=== PATIENT | male | born 1945 | race African-American/Black ===

== ENCOUNTER 2016-03-15 06:51 | Emergency (ER) | payer OTHER, BC ==
[2016-03-15 07:01] VITALS: BMI 25.4
--- NOTE | 2016-03-15 07:07 | PDOC ---
History of Present Illness - General Chief Complaint: CVA/TIA Stated Complaint: H/A WITH VISION CHANGES Time Seen by Provider: 03/15/16 07:06 - History of Present Illness Initial Comments: 03/15/16 07:17 Patient seen on arrival by me documentation done later Code stroke protocol started immediately 70-year-old male with past medical history of hypertension and diabetes His only blood thinner at this time is a baby aspirin daily Patient states at 4:30 AM this morning he was his usual self and watching TV, when he had the sudden onset of a severe headache, and loss of his left visual harrison He went to the bathroom and looked in the mirror and noticed that he had a bit of a facial droop He denies any weakness in his arms or legs He denies any numbness or tingling in his arms or legs He denies any difficulty walking He states the symptoms have been stable since 4:30 AM He arrives in the emergency department approximately 7 AM was seen on arrival by me immediately He denies any chest pain or syncope Remainder the review of systems is negative Past History - Past Medical History Allergies/Adverse Reactions: Allergies Allergy/AdvReac Type Severity Reaction Status Date / Time No Known Allergies Allergy Verified 07/30/15 15:02 Home Medications: Ambulatory Orders Aspirin [Aspirin EC] 81 mg PO DAILY 06/16/14 Metformin HCl [Glucophage] 1,000 mg PO DAILY 06/16/14 Metoprolol Succinate [Toprol Xl] 50 mg PO DAILY 06/16/14 Cetirizine HCl [Zyrtec -] 10 mg PO DAILY 08/06/15 Ezetimibe [Zetia] 10 mg PO HS 08/06/15 Valsartan/Hydrochlorothiazide [Valsartan-Hctz 80-12.5 mg Tab] 1 each PO DAILY COPD: No (bronchitis) Diabetes: Yes (borderline DM) HTN: Yes - Psycho/Social/Smoking Cessation Hx Anxiety: No Suicidal Ideation: No Smoking Status: No Smoking History: Never smoked Have you smoked in the past 12 months: No Number of Cigarettes Smoked Daily: 0 Hx Alcohol Use: Yes ([id number] LAST NIGHT) Drug/Substance Use Hx: No Substance Use Type: None *Physical Exam - Vital Signs Last Vital Signs Temp Pulse Resp BP Pulse Ox 97.6 F 76 20 117/76 100 03/15/16 06:54 03/15/16 06:54 03/15/16 06:54 03/15/16 06:54 03/15/16 06:54 - Physical Exam Comments: 03/15/16 07:18 Physical exam Last Vital Signs Temp Pulse Resp BP Pulse Ox 97.6 F 76 20 117/76 100 03/15/16 06:54 03/15/16 06:54 03/15/16 06:54 03/15/16 06:54 03/15/16 06:54 GENERAL: The patient is awake, alert, and fully oriented, and in no apparent distress. HEAD: Normal with no signs of trauma. EYES: Sclera anicteric ENT: Mucous membranes moist NECK: Normal range of motion, supple LUNGS: Breath sounds equal, clear to auscultation bilaterally. No wheezes, and no crackles. HEART: Regular rate and rhythm, normal S1 and S2 without murmur, rub or gallop. ABDOMEN: Soft, nontender, normoactive bowel sounds. No guarding, no rebound. No masses appreciated. EXTREMITIES: Normal range of motion, no edema. No clubbing or cyanosis. No cords, erythema, or tenderness. NEURO: Neuro exam is significant for a left homonymous hemianopsia, and a subtle right facial droop Mental status: The patient is oriented x3. Motor: The upper extremities are 5 over 5 in all muscle groups. The lower extremities are 5 over 5 in all muscle groups. Sensation: Sensation is intact to light touch throughout in the extremities Cerebellar: Tgtywd-uzfnxh-jyoz is normal in both upper extremities. Heel-knee- curtis is normal in both lower extremities. Reflexes: 2+ and symmetric in the upper and lower extremities. Gait: Normal. Heel and toe walking are normal. Tandem gait is normal. NEUROLOGICAL: Cranial nerves II through XII grossly intact. Normal speech, normal gait. PSYCH: Normal mood, normal affect. SKIN: Warm, Dry, normal turgor, no rashes or lesions noted. NIH Stroke Scale - Last Known Well Date/Time & Onset Date Last Known Well: 03/15/16 Time Last Known Well: 04:30 - Initial Evaluation Level of consciousness: Alert Ask patient the month and their age: Answers both correctly Ask patient to open & close eyes; make fist and let go: Obeys both correctly Best gaze (horizontal eye movement): Partial gaze palsy Visual field testing: Complete hemianopia Facial paresis (Show teeth/raise eyebrows/close eyes tight): Minor paralysis ( flattened nasolabial fold, asymmetry on smiling) Motor Function: Left Arm: Normal Motor Function: Right Arm: Normal (extends arm 90 (or 45) degrees for 10 seconds without drift Motor Function: Left Leg: Normal (extends leg 30 degrees for 5 seconds without drift) Motor Function: Right Leg: Normal (extends leg 30 degrees for 5 seconds without drift) Limb Ataxia: Present in one limb Sensory(Use pinprick test arms,legs,trunk,face/side to side): Normal Best language (Describe picture, name items, read sentences): No Aphasia Dysarthria (read several words): Normal articulation Extinction and Inattention: No abnormality - Total Score NIH Stroke Scale Score: 5 Critical Care Time/MDM Note Total Critical Care Time: 45 Critical Care Statement: The care of this patient involved high complexity decision making to prevent further life threatening deterioration of the patient 's condition and/or to evalute & treat vital organ system(s) failure or risk of failure. - Medical Decision Making Note: 03/15/16 07:31 70-year-old male with hypertension diabetes, who does now state that his hypertension has been under poor control recently, and states his blood pressure has been pretty high, had the acute onset at 4:30 AM of left homonymous hemianopsia and a right facial droop associated with a severe headache He came to the ER at 6:55 AM and was seen immediately on arrival by me Stat CT scan of the head as read by me There is a right occipital hematoma, with no ventricular extension and no midline shift Neuro paged stat Call by radiologist Verbal stat report by radiologist Right occipital hematoma, extensive white matter disease, no ventricular extension of bleed, no midline shift Patient given IV labetalol stat for blood pressure control Case discussed with Dr. Mehta-interventional neurology at [facility] accepts patient in transfer STAT Will send stat team will aim for BP goal of 150 to 160 syst per [facility] 03/15/16 07:41 No Neuro callback yet (Dr. Doty's group). paged stat again 03/15/16 07:58 EKG Sinus tachycardia 102, left axis deviation -5 Normal AV and IV conduction time QTC 463 There are diffuse nonspecific ST-T wave abnormalities There is no old EKG available for comparison at this time syst BP 180 to 185 after 20 mg labetolol IV Cardene drip started, stat transport team here Discharge Disposition - Discharge Dispostion Disposition: TRANSFER ACUTE CARE/OTHER HOSP Condition at time of disposition: Stable - Patient Instructions Additional Instructions: Transfer by STAT team to [facility] on Cardene drip Accepted to [facility] Dr Fuentes - Interventional Neuro
[2016-03-15] MEDS ORDERED: SODIUM CHLORIDE 1,000 ML IV SCH (07:15)
[2016-03-15] MEDS ORDERED: LABETALOL HCL 5 MG/1 ML (100MG/20 ML VIAL) ONE (07:24)
[2016-03-15] MEDS ORDERED: LABETALOL HCL 5 MG/1 ML (100MG/20 ML VIAL) IVPUSH ONE ×2 (07:27→07:56)
[2016-03-15 07:30] LABS: BASOPHIL 0.7 % (0-2.0); EOSINOPHIL 2.3 % (0-4.5); MCH 28.5 pg (25.7-33.7); MCHC 32.5 g/dl (32.0-35.9); MEAN CELL VOLUME 87.6 fl (80-96); MEAN PLT VOLUME 8.1 fl (7.5-11.1); NEUTROPHILS 59.4 % (42.8-82.8); PLATELET COUNT 260 K/MM3 (134-434); RDW 12.7 % (11.9-15.9)
[2016-03-15 07:38] LABS: INR 0.95 (0.82-1.09); PROTHROMBIN TIME (PATIENT) 10.4 SEC (10.2-13.0)
[2016-03-15 07:51] VITALS: BP 185/106
[2016-03-15 07:59] VITALS: PULSE 89; TEMP 989.5
[2016-03-15 08:20] LABS: TROPONIN I (DFP) 0.04 ng/ml (0.03-0.50)
[2016-03-15 08:28] LABS: ALBUMIN 4.2 g/dl (3.5-5.0); BILIRUBIN,TOTAL 0.7 mg/dl (0.2-1.0); CALCIUM 9.4 mg/dl (8.4-10.2); CREATININE 1.4 mg/dl (0.6-1.3); TOT PROT 6.5 g/dl (6.4-8.3)
--- NOTE | 2016-03-15 10:54 | EKG ---
Test Reason : Blood Pressure : / mmHG Vent. Rate : 102 BPM Atrial Rate : 102 BPM P-R Int : 168 ms QRS Dur : 082 ms QT Int : 356 ms P-R-T Axes : 066 -05 072 degrees QTc Int : 463 ms SINUS TACHYCARDIA POSSIBLE LEFT ATRIAL ENLARGEMENT NONSPECIFIC T WAVE ABNORMALITY ABNORMAL ECG NO PREVIOUS ECGS AVAILABLE Confirmed by CHARLETTE CUNNINGHAM MD ([id number]) on 03/15/2016 10:54:05 AM Referred By: ESTEFANI MCCORMACK Confirmed By:CHARLETTE CUNNINGHAM MD
== END 2016-03-15 08:05 | disposition short-term general hospital (02) ==
LOC: FER 06:51
PROC: 3E033GC Introduction of Other Therapeutic Substance into Peripheral Vein, Percutaneous Approach (ICD-10-PCS; principal; 2016-03-15)
DX: R51 Headache (principal); I10 Essential (primary) hypertension; E11.9 Type 2 diabetes mellitus without complications; Z79.82 Long term (current) use of aspirin; Z79.84 Long term (current) use of oral hypoglycemic drugs
CPT/HCPCS: 36415; 70450-TC; 71010-TC; 80053; 82465; 82550; 82553; 83718; 83721; 84478; 84484; 85025; 85610; 86850; 86900; 86901; 93005; 96374; 99285-25

== ENCOUNTER 2016-10-17 10:50 | Emergency (ER) | payer OTHER, BC ==
--- NOTE | 2016-10-17 10:58 | PDOC ---
History of Present Illness - General Chief Complaint: Weakness Stated Complaint: WEAKNESS Time Seen by Provider: 10/17/16 10:55 - History of Present Illness Initial Comments: 10/17/16 12:09 Chief complaint: Low potassium History of present illness: Patient was told by his primary physician to come to the emergency room and be treated for low potassium that was discovered on routine blood work yesterday. The patient feels mild generalized weakness but no other symptoms. This has occurred multiple times in the past, thought due to diuretic therapy. He has been prescribed potassium supplementation in the past but it is not currently prescribed. Review of systems: Denies chest pain, shortness of breath, nausea, vomiting, diarrhea, abdominal pain, diaphoresis, new visual or focal neurologic symptoms. 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 He has no motor or sensory deficits in the extremities. 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 Still attends physical therapy/ rehabilitation at a local facility. High blood pressure. Gok-bpvriit-vtvadjsgj diabetes. Recurrent sinusitis. Seasonal ALLERGIES. Gout. Medications: Norvasc, Coreg, Diovan, hydrochlorothiazide, glipizide, metformin, baby aspirin, colchicine, Zyrtec, Singulair, Seroquel, vitamins. ALLERGIES: None Social history: Lives locally alone, but with nephew in an upstairs apartment. Several sisters in the area but they are not on speaking terms. . No children. Other family members in [place]. No tobacco alcohol or nonprescription drugs. Family history: Significant for diabetes, high blood pressure, but no early coronary artery disease/SC, strokes, blood clots, or cancer Physical exam: Alert and oriented 3, well-developed well-nourished, no acute distress, cheerful and cooperative Afebrile, vital signs normal PERRLA, fundi benign, ENT clear. Neck supple without bruit mass or nodes Lungs clear CV regular without murmur rub or gallop Abdomen benign Neurological left lower facial palsy, mild. Remainder of cranial nerves intact. Visual field defect to the left. Extraocular muscles intact. No focal sensory or motor deficits the extremities. Cerebellum intact. Gait stable. Impression: Presumed hypokalemia secondary to diuretic therapy. Mild weakness possibly due to potassium deficit. No new neurologic deficits. No sign of new bleed or stroke. No sign of acute cardiac event Plan: Repeat electrolytes, follow-up head CT, intravenous and oral potassium supplementation, EKG and enzymes, monitor and further treatment depending on response to therapy. Past History - Past Medical History Allergies/Adverse Reactions: Allergies Allergy/AdvReac Type Severity Reaction Status Date / Time No Known Allergies Allergy Verified 10/17/16 10:54 Home Medications: Ambulatory Orders Amlodipine Besylate [Norvasc -] 10 mg PO DAILY 10/17/16 Aspirin [Aspirin EC] 81 mg PO DAILY 10/17/16 Carvedilol 12.5 mg PO DAILY 10/17/16 Cetirizine HCl [Zyrtec -] 10 mg PO DAILY 10/17/16 Colchicine 0.6 mg PO DAILY 10/17/16 Glipizide [Glipizide ER] 2.5 mg PO DAILY 10/17/16 Hydrochlorothiazide [Hctz -] 25 mg PO DAILY 10/17/16 Levetiracetam [Keppra Xr -] 750 mg PO DAILY 10/17/16 Metformin HCl 1,000 mg PO DAILY 10/17/16 Montelukast Na [Singulair -] 10 mg PO HS 10/17/16 Potassium Chloride [K-Dur -] 20 meq PO DAILY #30 tablet.er 10/17/16 Quetiapine Fumarate [Seroquel -] 75 mg PO BID 10/17/16 Thiamine HCl [Vitamin B1] 100 mg PO DAILY 10/17/16 Valsartan [Diovan] 160 mg PO DAILY 10/17/16 Cancer: Yes (PROSTATE) COPD: No (bronchitis) Diabetes: Yes (borderline DM) HTN: Yes - Psycho/Social/Smoking Cessation Hx Anxiety: No Suicidal Ideation: No Smoking Status: No Smoking History: Never smoked Have you smoked in the past 12 months: No Number of Cigarettes Smoked Daily: 0 Hx Alcohol Use: Yes ([id number] LAST NIGHT) Drug/Substance Use Hx: No Substance Use Type: None ED Treatment Course - LABORATORY CBC & Chemistry Diagram: 10/17/16 11:20 10/17/16 11:20 Medical Decision Making - Medical Decision Making 10/17/16 12:23 Results of blood work yesterday show potassium of 2.8. Intravenous potassium supplementation begun. By mouth dose of 40 mEq given now. Monitor and recheck response to therapy. 10/17/16 12:25 EKG: Normal sinus rhythm 70/m. Normal axes and intervals. Nonspecific ST-T wave changes. No significant change compared to cardiogram dated 03/15/2016 except for decrease in heart rate from 102-70. 10/17/16 14:51 Repeat blood work shows a potassium of 3.0. Intravenous potassium was administered, as well as first dose by mouth. Patient was prescribed potassium 20 mEq daily. Follow-up with primary physician. Instructed to discuss the possibility of stopping diuretic therapy. Fully ambulatory and in no distress, no significant weakness upon discharge to follow-up as directed. *DC/Admit/Observation/Transfer Diagnosis at time of Disposition: Hypokalemia - Discharge Dispostion Disposition: HOME Condition at time of disposition: Improved Admit: No - Prescriptions Prescriptions: Potassium Chloride [K-Dur -] 20 meq PO DAILY #30 tablet.er - Patient Instructions Printed Discharge Instructions: DI for Hypokalemia, High-Potassium Diet Additional Instructions: Begin potassium supplementation as directed See your doctor in 2-3 days for recheck. Discuss an alternative to diuretic therapy, since this may be responsible for your low potassium. Return to the ER if you have any heart related symptoms such as chest pain, shortness of breath, palpitations, lightheadedness or dizziness.
[2016-10-17 11:04] VITALS: TEMP 98.1; BMI 28.5
[2016-10-17 11:51] LABS: ALK PHOS 49 U/L (32-92); ANION GAP 9 (8-16); BILIRUBIN,TOTAL 0.6 mg/dl (0.2-1.0); BLOOD UREA NITROGEN 14 mg/dl (7-18); CALCIUM 9.3 mg/dl (8.4-10.2); CHLORIDE 102 mmol/L (98-107); CO2 26 mmol/L (22-28); CREATININE 1.2 mg/dl (0.6-1.3); GLUCOSE,RANDOM 142 mg/dl (74-106); SGOT/AST 26 U/L (10-42); SGPT/ALT 30 U/L (10-40); SODIUM 137 mmol/L (136-145); TOT PROT 6.4 g/dl (6.4-8.3)
[2016-10-17] MEDS ORDERED: SODIUM CHLORIDE 1,000 ML IV SCH (12:00)
[2016-10-17] MEDS: KCL 10 MEQ IVPB 100 ML IVPB SCH ×2 (12:00→13:30)
[2016-10-17] MEDS ORDERED: POTASSIUM CHLORIDE TABS 20 MEQ TABLET.ER (FP) PO ONE ×2 (12:16→12:17)
[2016-10-17 12:55] LABS: BASO % 0.8 % (0-2.0); EOS % 2.4 % (0-4.5); HEMATOCRIT 42.8 % (35.4-49); HEMOGLOBIN 14.6 GM/dL (11.7-16.9); LYMPH % 41.2 % (8-40); MCH 28.1 pg (25.7-33.7); MEAN CELL VOLUME 82.6 fl (80-96); MONO % 13.6 % (3.8-10.2); PLATELET COUNT 260 K/MM3 (134-434); RBC 5.18 M/mm3 (4.00-5.60); RDW 14.4 % (11.9-15.9); WHITE BLOOD COUNT 5.8 K/mm3 (4.0-10.0)
[2016-10-17 13:39] LABS: TROPONIN I (DFP) 0.04 ng/ml (0.03-0.50)
[2016-10-17 15:04] VITALS: BP 129/75; PULSE 74
--- NOTE | 2016-10-18 16:27 | EKG ---
Test Reason : Blood Pressure : / mmHG Vent. Rate : 062 BPM Atrial Rate : 062 BPM P-R Int : 210 ms QRS Dur : 092 ms QT Int : 410 ms P-R-T Axes : 057 -02 029 degrees QTc Int : 416 ms SINUS RHYTHM WITH 1ST DEGREE A-V BLOCK NONSPECIFIC T WAVE ABNORMALITY ABNORMAL ECG WHEN COMPARED WITH ECG OF 17-OCT-2016 11:04, NO SIGNIFICANT CHANGE WAS FOUND Confirmed by CADEN MARTINEZ, ERIN ([id number]) on 10/18/2016 4:26:59 PM Referred By: DR NDIAYE Confirmed By:ERIN NEGRETE MD
--- NOTE | 2016-10-18 16:27 | EKG ---
Test Reason : Blood Pressure : / mmHG Vent. Rate : 070 BPM Atrial Rate : 070 BPM P-R Int : 198 ms QRS Dur : 092 ms QT Int : 392 ms P-R-T Axes : 060 -10 055 degrees QTc Int : 423 ms SINUS RHYTHM POSSIBLE LEFT ATRIAL ENLARGEMENT NONSPECIFIC T WAVE ABNORMALITY ABNORMAL ECG WHEN COMPARED WITH ECG OF 15-MAR-2016 06:55, NO SIGNIFICANT CHANGE WAS FOUND Confirmed by ERIN NEGRETE MD ([id number]) on 10/18/2016 4:27:29 PM Referred By: NAINA PETER Confirmed By:ERIN NEGRETE MD
== END 2016-10-17 15:02 | disposition home or self-care (01) ==
LOC: FER 10:50
PROC: 3E033GC Introduction of Other Therapeutic Substance into Peripheral Vein, Percutaneous Approach (ICD-10-PCS; principal; 2016-10-17)
PROC: 3E0337Z Introduction of Electrolytic and Water Balance Substance into Peripheral Vein, Percutaneous Approach (ICD-10-PCS; 2016-10-17)
DX: E87.6 Hypokalemia (principal)
CPT/HCPCS: 36415; 70450-TC; 80053; 84132; 84484; 85025; 93005; 93010; 99282-25; 99285-25; J7030

== ENCOUNTER 2016-10-30 14:04 | Emergency (ER) | payer OTHER, BC ==
[2016-10-30 14:33] VITALS: BP 134/90; PULSE 79; TEMP 98.7; BMI 28.5
--- NOTE | 2016-10-30 15:22 | PDOC ---
Attending Attestation - Resident Resident Name: Benigno Rodriguez - ED Attending Attestation I have performed the following: I have examined & evaluated the patient, The case was reviewed & discussed with the resident, I agree w/resident's findings & plan, Exceptions are as noted - HPI HPI: 10/30/16 17:54 Patient's complains of generalized weakness, lightheadedness today. Similar symptoms last week, treated multiple times in the emergency room, cardiac and neurological evaluations including serial EKGs and enzymes, head CT, negative at that time. Since then he has developed a rash on his left shoulder that suggests varicella-zoster 10/30/16 17:55 - Physicial Exam PE: 10/30/16 17:56 Physical exam unremarkable except for chronic gait instability with balance issues that have not changed - Medical Decision Making 10/30/16 17:57 Potassium today is 3.3. Remainder of labs without significant abnormalities. Upon further questioning, the patient notes that he has been prescribed medication for "shingles". This turns out to be acyclovir. He is also not eaten all day due to his multiple doctor visits. After eating here, the patient feels much better. His gait is stable. There is no lightheadedness and he is asymptomatic. Discharge fully ambulatory and in no distress to follow-up with his primary physician
[2016-10-30 15:48] LABS: MCH 28.5 pg (25.7-33.7); MCHC 33.7 g/dl (32.0-35.9); MEAN CELL VOLUME 84.5 fl (80-96); MEAN PLT VOLUME 9.1 fl (7.5-11.1); PLATELET COUNT 264 K/MM3 (134-434); RDW 14.1 % (11.9-15.9); WHITE BLOOD COUNT 6.8 K/mm3 (4.0-10.8)
[2016-10-30 15:56] LABS: ALBUMIN 4.4 g/dl (3.5-5.0); ALK PHOS 57 U/L (32-92); ANION GAP 12 (8-16); BILIRUBIN,TOTAL 0.6 mg/dl (0.2-1.0); CALCIUM 9.8 mg/dl (8.4-10.2); CO2 29 mmol/L (22-28); CREATININE 1.1 mg/dl (0.6-1.3); GLUCOSE,RANDOM 101 mg/dl (74-106); SGOT/AST 49 U/L (10-42); SGPT/ALT 69 U/L (10-40); TOT PROT 6.9 g/dl (6.4-8.3)
[2016-10-30 16:44] LABS: PLATELET ESTIMATE ADEQUATE (NORMAL); REACTIVE LYMPHOCYTES 1 % (0-80)
--- NOTE | 2016-10-30 16:59 | PDOC ---
History of Present Illness - General Chief Complaint: Lightheaded Stated Complaint: WEAKNESS Time Seen by Provider: 10/30/16 14:46 History Source: Patient Exam Limitations: No Limitations - History of Present Illness Initial Comments: 10/30/16 16:50 Patient is a 70M with history of stroke (Daniele, deficits in partial left visual field memory and balance), gout, and hypokalemia here today complaining of light -headedness. He was recently worked up in the ED which showed a potassium of 2.8. K was replaced. He then left AMA. The next day, he came back and his K was normal. Trop was negative twice this day. ECG showed a T wave flattening in III , consistent with prior ECGs. He denies chest pain, shortness of breath, belly pain, and palpitations. He states that he hasn't had anything to eat or drink today. He denies nausea, vomiting, fevers and chills. Patient was recently diagnosed with shingles and treated with acyclovir. Past History - Past Medical History Allergies/Adverse Reactions: Allergies Allergy/AdvReac Type Severity Reaction Status Date / Time No Known Allergies Allergy Verified 10/30/16 14:28 Home Medications: Ambulatory Orders Amlodipine Besylate [Norvasc -] 10 mg PO DAILY 10/17/16 Aspirin [Aspirin EC] 81 mg PO DAILY 10/17/16 Carvedilol 12.5 mg PO DAILY 10/17/16 Cetirizine HCl [Zyrtec -] 10 mg PO DAILY 10/17/16 Colchicine 0.6 mg PO DAILY 10/17/16 Glipizide [Glipizide ER] 2.5 mg PO DAILY 10/17/16 Hydrochlorothiazide [Hctz -] 25 mg PO DAILY 10/17/16 Levetiracetam [Keppra Xr -] 750 mg PO DAILY 10/17/16 Metformin HCl 1,000 mg PO DAILY 10/17/16 Montelukast Na [Singulair -] 10 mg PO HS 10/17/16 Potassium Chloride [K-Dur -] 20 meq PO DAILY #30 tablet.er 10/17/16 Quetiapine Fumarate [Seroquel -] 75 mg PO BID 10/17/16 Thiamine HCl [Vitamin B1] 100 mg PO DAILY 10/17/16 Valsartan [Diovan] 160 mg PO DAILY 10/17/16 Acyclovir 5% Ointment [Zovirax *Ointment* -] 1 applic TP TID 10/30/16 Acyclovir [Zovirax -] 400 mg PO BID 10/30/16 Docusate Sodium [Colace -] 100 mg PO BID 10/30/16 Prednisone 5 mg PO ASDIR 10/30/16 Cancer: Yes (PROSTATE) CVA: Yes COPD: No (bronchitis) Diabetes: Yes (borderline DM) HTN: Yes Psychiatric Problems: Yes (ANXIETY) - Psycho/Social/Smoking Cessation Hx Anxiety: Yes Suicidal Ideation: No Smoking Status: No Smoking History: Never smoked Have you smoked in the past 12 months: No Number of Cigarettes Smoked Daily: 0 Information on smoking cessation initiated: No Hx Alcohol Use: No Drug/Substance Use Hx: No Substance Use Type: None Review of Systems - Review of Systems Comments:: 10/30/16 18:30 GENERAL/CONSTITUTIONAL: No fever or chills. No weakness. HEAD, EYES, EARS, NOSE AND THROAT: No change in vision. No ear pain or discharge. No sore throat. CARDIOVASCULAR: No chest pain or shortness of breath RESPIRATORY: No cough, wheezing, or hemoptysis. GASTROINTESTINAL: No nausea, vomiting, diarrhea or constipation. GENITOURINARY: No dysuria, frequency, or change in urination. SKIN: No rash NEUROLOGIC: No headache, vertigo, loss of consciousness, or change in strength/ sensation. Positive for partial left sided visual loss and memory loss, unchanged from baseline. ENDOCRINE: No increased thirst. No abnormal weight change ALLERGIC/IMMUNOLOGIC: Positive for rash on left shoulder *Physical Exam - Vital Signs Last Vital Signs Temp Pulse Resp BP Pulse Ox 98.7 F 79 18 134/90 97 10/30/16 14:06 10/30/16 14:06 10/30/16 14:06 10/30/16 14:06 10/30/16 14:06 - Physical Exam Comments: 10/30/16 18:33 GENERAL: Awake, alert, and fully oriented, in no acute distress HEAD: No signs of trauma, normocephalic, atraumatic EYES: PERRLA, EOMI, sclera anicteric, conjunctiva clear ENT: Auricles normal inspection, hearing grossly normal, nares patent, oropharynx clear without exudates. NECK: Normal ROM, supple, no lymphadenopathy, JVD, or masses LUNGS: No distress, speaks full sentences, clear to auscultation bilaterally HEART: Regular rate and rhythm, normal S1 and S2, no murmurs, rubs or gallops, peripheral pulses normal and equal bilaterally. ABDOMEN: Soft, nontender, normoactive bowel sounds. No guarding, no rebound. No masses EXTREMITIES: Normal inspection, Normal range of motion, no edema. No clubbing or cyanosis. NEUROLOGICAL: Cranial nerves II through XII grossly intact. Normal speech. SKIN: Warm, Dry, normal turgor, no rashes or lesions noted. ED Treatment Course - LABORATORY CBC & Chemistry Diagram: 10/30/16 14:49 10/30/16 14:49 - ADDITIONAL ORDERS Additional order review: Laboratory Results 10/30/16 10/30/16 14:49 14:49 Sodium 141 Potassium 3.3 L Chloride 100 Carbon Dioxide 29 H Anion Gap 12 BUN 17 D Creatinine 1.1 Creat Clearance w eGFR > 60 Random Glucose 101 D Calcium 9.8 Magnesium 1.9 Total Bilirubin 0.6 AST 49 H D ALT 69 H D Alkaline Phosphatase 57 Total Protein 6.9 Albumin 4.4 10/30/16 14:49 RBC 5.57 MCV 84.5 MCHC 33.7 RDW 14.1 MPV 9.1 Neutrophils % Upper Tier Lymphocytes % Upper Tier Monocytes % Upper Tier Eosinophils % Upper Tier Basophils % Upper Tier Medical Decision Making - Medical Decision Making 10/30/16 18:35 Patient is a 70M with history of stroke, HTN, distant prostate cancer and sinusitis here today complaining of light headedness. Vital signs stable. Recently worked up. Not complaining of chest pain. K level 3.3. Advised again to stop taking HCTZ. ECG shows normal sinus rhythm, normal rate, flat T wave in III consistent with prior ECGs, no ST elevations. Overall same as prior ECG. CBC normal. CMP normal. Mg normal. Feels much better after eating. Ambulating and saying symptoms have improved. Given return precautions and expressed understanding. *DC/Admit/Observation/Transfer Diagnosis at time of Disposition: Light headedness - Discharge Dispostion Disposition: HOME Condition at time of disposition: Good Admit: No - Patient Instructions Printed Discharge Instructions: DI for Shingles Additional Instructions: Please come back if you experience any episodes of light headedness, chest pain or shortness of breath. We'll be happy to see you again
--- NOTE | 2016-10-31 08:49 | EKG ---
Test Reason : Blood Pressure : / mmHG Vent. Rate : 076 BPM Atrial Rate : 076 BPM P-R Int : 202 ms QRS Dur : 092 ms QT Int : 364 ms P-R-T Axes : 060 -03 030 degrees QTc Int : 409 ms SINUS RHYTHM WITH 1ST DEGREE A-V BLOCK NONSPECIFIC T WAVE ABNORMALITY ABNORMAL ECG WHEN COMPARED WITH ECG OF 17-OCT-2016 16:25, NO SIGNIFICANT CHANGE WAS FOUND Confirmed by ERIN NEGRETE MD ([id number]) on 10/31/2016 8:49:31 AM Referred By: MD PETER Confirmed By:ERIN NEGRETE MD
== END 2016-10-30 17:28 | disposition home or self-care (01) ==
LOC: FER 14:04
DX: R42 Dizziness and giddiness (principal); E87.6 Hypokalemia; I63.8 Other cerebral infarction; H53.8 Other visual disturbances; R47.01 Aphasia; Z85.46 Personal history of malignant neoplasm of prostate; J44.9 Chronic obstructive pulmonary disease, unspecified; I10 Essential (primary) hypertension; F41.9 Anxiety disorder, unspecified
CPT/HCPCS: 36415; 80053; 83735; 85025; 93005; 99283-25

== ENCOUNTER 2017-06-10 09:09 | Observation (INO) | payer OTHER, BC ==
[2017-06-10] MEDS ORDERED: SODIUM CHLORIDE 1,000 ML IV SCH ×2 (09:15→17:30)
--- NOTE | 2017-06-10 09:19 | PDOC ---
History of Present Illness - General Chief Complaint: CVA/TIA Stated Complaint: DIZZY,ALTERED BALANCE Time Seen by Provider: 06/10/17 09:13 Past History - Past Medical History Allergies/Adverse Reactions: Allergies Allergy/AdvReac Type Severity Reaction Status Date / Time No Known Allergies Allergy Verified 10/30/16 14:28 Home Medications: Ambulatory Orders Amlodipine Besylate [Norvasc -] 10 mg PO DAILY 10/17/16 Aspirin [Aspirin EC] 81 mg PO DAILY 10/17/16 Carvedilol 12.5 mg PO DAILY 10/17/16 Cetirizine HCl [Zyrtec -] 10 mg PO DAILY 10/17/16 Colchicine 0.6 mg PO DAILY 10/17/16 Glipizide [Glipizide ER] 2.5 mg PO DAILY 10/17/16 Hydrochlorothiazide [Hctz -] 25 mg PO DAILY 10/17/16 Levetiracetam [Keppra Xr -] 750 mg PO DAILY 10/17/16 Metformin HCl 1,000 mg PO DAILY 10/17/16 Montelukast Na [Singulair -] 10 mg PO HS 10/17/16 Potassium Chloride [K-Dur -] 20 meq PO DAILY #30 tablet.er 10/17/16 Quetiapine Fumarate [Seroquel -] 75 mg PO BID 10/17/16 Thiamine HCl [Vitamin B1] 100 mg PO DAILY 10/17/16 Valsartan [Diovan] 160 mg PO DAILY 10/17/16 Acyclovir 5% Ointment [Zovirax *Ointment* -] 1 applic TP TID 10/30/16 Acyclovir [Zovirax -] 400 mg PO BID 10/30/16 Docusate Sodium [Colace -] 100 mg PO BID 10/30/16 Prednisone 5 mg PO ASDIR 10/30/16 Cancer: Yes (PROSTATE) CVA: Yes COPD: No (bronchitis) Diabetes: Yes (borderline DM) HTN: Yes Psychiatric Problems: Yes (ANXIETY) - Suicide/Smoking/Psychosocial Hx Smoking Status: No Smoking History: Never smoked Have you smoked in the past 12 months: No Number of Cigarettes Smoked Daily: 0 Hx Alcohol Use: No Drug/Substance Use Hx: No Substance Use Type: None
--- NOTE | 2017-06-10 09:40 | PDOC ---
History of Present Illness - General Chief Complaint: Lightheaded Stated Complaint: DIZZY,ALTERED BALANCE Time Seen by Provider: 06/10/17 09:13 - History of Present Illness Initial Comments: 06/10/17 09:31 This is a 70M with history of HTN, DM, high Chol, stroke (Daniele, deficits in partial left visual field memory and balance), gout, and hypokalemia here today complaining of light-headedness. Patient had seen his ENT yesterday for a sinus infection. He has frontal sinus pressure. Today when he woke up he stood up quickly and began to feel lightheaded. When he sits down the symptoms improve. Symptoms seem to related to position they are not persistent they're intermittent no other chest pain shortness of breath nausea vomiting diarrhea weakness numbness rashes Past History - Past Medical History Allergies/Adverse Reactions: Allergies Allergy/AdvReac Type Severity Reaction Status Date / Time No Known Allergies Allergy Verified 06/10/17 10:51 Home Medications: Ambulatory Orders Amlodipine Besylate [Norvasc -] 10 mg PO DAILY 10/17/16 Cetirizine HCl [Zyrtec -] 10 mg PO DAILY 10/17/16 Colchicine 0.6 mg PO DAILY 10/17/16 Glipizide [Glipizide ER] 2.5 mg PO DAILY 10/17/16 Levetiracetam [Keppra Xr -] 750 mg PO DAILY 10/17/16 Metformin HCl 1,000 mg PO DAILY 10/17/16 Montelukast Na [Singulair -] 10 mg PO HS 10/17/16 Quetiapine Fumarate [Seroquel -] 75 mg PO BID 10/17/16 Valsartan [Diovan] 160 mg PO DAILY 10/17/16 Aspirin [ASA -] 81 mg PO DAILY 06/10/17 Ezetimibe [Zetia] 10 mg PO DAILY 06/10/17 Metoprolol Succinate [Toprol Xl] 50 mg PO DAILY 06/10/17 Potassium Chloride [K-Dur -] 10 meq PO ASDIR 06/10/17 Cancer: Yes (PROSTATE) CVA: Yes COPD: No (bronchitis) Diabetes: Yes (borderline DM) HTN: Yes Psychiatric Problems: Yes (ANXIETY) - Suicide/Smoking/Psychosocial Hx Smoking Status: No Smoking History: Never smoked Have you smoked in the past 12 months: No Number of Cigarettes Smoked Daily: 0 Hx Alcohol Use: No Drug/Substance Use Hx: No Substance Use Type: None Review of Systems - Review of Systems Comments:: 06/10/17 09:40 ROS: A complete review of 10 out of 10 review of systems is taken and is negative apart from what is previously mentioned below and in the HPI. *Physical Exam - Physical Exam Comments: 06/10/17 09:40 Vitals: Triage Vital signs reviewed General Appearance: no acute distress, well nourished well developed, Head: Atraumatic, frontal sinus ttp Eyes: Pupils equal reactive round, extraocular movement intact Ears: TM's normal bilaterally; Nose: Nares patent bilaterally;no nasal congestion Throat: Posterior oropharynx without erythema, mucous membranes moist, Neck: Supple;No Nucal rigidity Chest Wall: Nontender Cardiac: Regular rate and rhythym, no murmurs, no rubs, no gallops, Lungs: Clear to auscultation bilateral, good air movement bilaterally, Abdomen: Soft, non distended, normal bowel sounds, non tender to palpation Extremities: Full range of motion to all extremities, no cyanosis, clubbing, or edema Skin: Warm and dry, no rashes or lesions, no rash, no petechiae Neuro: AOX3; Cranial Nerves 2-12 grossly intact, Strength intact to all extremities, Sensation intact to all extremities, lightheaded with standing. Psych: normal mood, normal affect Heart Score/ECG Review - ECG Impressions Comment:: 06/10/17 18:[address] elevations no T-wave inversions ED Treatment Course - LABORATORY CBC & Chemistry Diagram: 06/10/17 09:20 06/10/17 09:20 - RADIOLOGY Radiology Studies Ordered: Category Date Time Status HEAD CT (STROKE) [CT] Stat CT Scan 06/10/17 09:14 Ordered CHEST X-RAY PORTABLE* [RAD] Stat Radiology 06/10/17 09:16 Ordered Medical Decision Making - Medical Decision Making 06/10/17 12:30 This is a 70M with history of HTN, DM, high Chol, stroke (Daniele, deficits in partial left visual field memory and balance), gout, and hypokalemia here today complaining of light-headedness. Patient had seen his ENT yesterday for a sinus infection. He has frontal sinus pressure. Today when he woke up he stood up quickly and began to feel lightheaded. When he sits down the symptoms improve. Symptoms seem to related to position they are not persistent they're intermittent no other chest pain shortness of breath nausea vomiting diarrhea weakness numbness rashes On examination no focal neurologic findings NIHSS stroke scale score 0 Positional lightheadedness we'll check labs EKG troponin head CT IV fluids observe and reassess Reevaluation despite IV fluids patient still remains slightly asymptomatic still slightly lightheaded with mild nausea when standing. Given the patient lives by himself will observe overnight with neurologic consultation. We'll treat with Zofran and meclizine and observe for further management *DC/Admit/Observation/Transfer Diagnosis at time of Disposition: Dizziness, Light headedness - Discharge Dispostion Admit: Yes - Referrals - Patient Instructions - Post Discharge Activity
[2017-06-10 10:04] LABS: ALBUMIN 4.2 g/dl (3.5-5.0); ALK PHOS 88 U/L (32-92); ANION GAP 3 (8-16); BLOOD UREA NITROGEN 15 mg/dl (7-18); CALCIUM 9.1 mg/dl (8.4-10.2); CHLORIDE 108 mmol/L (98-107); CHOLESTEROL 180 mg/dl; CO2 26 mmol/L (22-28); CREATININE 1.2 mg/dl (0.6-1.3); GLUCOSE,RANDOM 123 mg/dl (74-106); POTASSIUM 3.5 mmol/L (3.5-5.1); SGOT/AST 19 U/L (10-42); SGPT/ALT 26 U/L (10-40); SODIUM 137 mmol/L (136-145)
[2017-06-10 10:23] VITALS: BMI 29.9
[2017-06-10 10:26] LABS: BASO % 1.8 % (0-2.0); EOS % 2.2 % (0-4.5); HEMATOCRIT 48.2 % (35.4-49); HEMOGLOBIN 16.5 GM/dl (11.7-16.9); LYMPH % 36.8 % (8-40); MCH 29.5 pg (25.7-33.7); MCHC 34.3 g/dl (32.0-35.9); MEAN CELL VOLUME 85.8 fl (80-96); MEAN PLT VOLUME 8.6 fl (7.5-11.1); MONO % 11.7 % (3.8-10.2); NEUT % 47.5 % (42.8-82.8); PLATELET COUNT 289 K/MM3 (134-434); RBC 5.61 M/mm3 (4.00-5.60); RDW 13.5 % (11.9-15.9); WHITE BLOOD COUNT 7.9 K/mm3 (4.0-10.8)
[2017-06-10 11:27] LABS: BILIRUBIN,TOTAL 0.5 mg/dl (0.2-1.0)
[2017-06-10] MEDS ORDERED: MECLIZINE HCL 25 MG TABLET (FP) PO ONE (12:22)
[2017-06-10] MEDS ORDERED: ONDANSETRON 4 MG/2 ML VIAL IVPUSH ONE (12:22)
[2017-06-10] MEDS ORDERED: ONDANSETRON 4 MG/2 ML VIAL ONE (12:26)
[2017-06-10] MEDS ORDERED: MECLIZINE HCL 25 MG TABLET (FP) ONE (12:26)
[2017-06-10] MEDS ORDERED: FLUTICASONE PROP 0.05% 16 GM NASAL SPRAY NS ONE (13:26)
[2017-06-10 13:59] LABS: PH,URINE 5.5 (4.5-8); URINE APPEARANCE Clear; URINE BILIRUBIN Negative (NEGATIVE); URINE BLOOD Negative (NEGATIVE); URINE GLUCOSE (UA) Negative (NEGATIVE); URINE KETONE Negative (NEGATIVE); URINE LEUK ESTERASE Negative (NEGATIVE); URINE NITRITE Negative (NEGATIVE); URINE PROTEIN Negative (NEGATIVE); URINE UROBILINOGEN 0.2 (0.2-1.0)
[2017-06-10] MEDS ORDERED: METOCLOPRAMIDE HCL INJECTION 10 MG/2 ML VIAL IVPB ONE (14:16)
[2017-06-10 14:31] LABS: PH,URINE 5.5 (4.5-8); URINE APPEARANCE Clear; URINE BILIRUBIN Negative (NEGATIVE); URINE GLUCOSE (UA) Negative (NEGATIVE); URINE KETONE Negative (NEGATIVE); URINE LEUK ESTERASE Negative (NEGATIVE); URINE NITRITE Negative (NEGATIVE); URINE PROTEIN Negative (NEGATIVE); URINE UROBILINOGEN 0.2 (0.2-1.0)
[2017-06-10 14:44] LABS: URINE COLOR YELLOW
[2017-06-10 14:46] LABS: URINE BLOOD Trace-intact (NEGATIVE); URINE COLOR YELLOW
[2017-06-10 15:52] LABS: EPI CELLS FEW /HPF; URINE BACTERIA NONE SEEN /hpf (NEGATIVE); URINE RBC 0-3 /hpf (0-3); URINE WBC 0-3 (0-2)
--- NOTE | 2017-06-10 17:22 | HP ---
Admitting History and Physical - Primary Care Physician PCP: Billie Spain - Admission History of Present Illness: 70M with history of HTN, DM, high Chol, stroke (Mar, deficits in partial left visual field memory and balance), gout, and hypokalemia here today complaining of light-headedness and balance was off. Patient had seen his ENT yesterday for a sinus infection. He has frontal sinus pressure. Today when he woke up he stood up quickly and began to feel lightheaded. When he sits down the symptoms improve. Symptoms seem to related to position they are not persistent they're intermittent no other chest pain shortness of breath nausea vomiting diarrhea weakness numbness rashes - Past Medical History Cardiovascular: Yes: HTN, Hyperlipdemia Endocrine: Yes: Diabetes Mellitus - Smoking History Smoking history: Never smoked Have you smoked in the past 12 months: No Aproximately how many cigarettes per day: 0 - Alcohol/Substance Use Hx Alcohol Use: No Home Medications - Allergies Allergies/Adverse Reactions: Allergies Allergy/AdvReac Type Severity Reaction Status Date / Time No Known Allergies Allergy Verified 06/10/17 10:51 - Home Medications Home Medications: Ambulatory Orders Amlodipine Besylate [Norvasc -] 10 mg PO DAILY 10/17/16 Cetirizine HCl [Zyrtec -] 10 mg PO DAILY 10/17/16 Colchicine 0.6 mg PO DAILY 10/17/16 Glipizide [Glipizide ER] 2.5 mg PO DAILY 10/17/16 Levetiracetam [Keppra Xr -] 750 mg PO BID 10/17/16 Metformin HCl 1,000 mg PO DAILY 10/17/16 Montelukast Na [Singulair -] 10 mg PO HS 10/17/16 Quetiapine Fumarate [Seroquel -] 75 mg PO BID 10/17/16 Valsartan [Diovan] 160 mg PO DAILY 10/17/16 Aspirin [ASA -] 81 mg PO DAILY 06/10/17 Ezetimibe [Zetia] 10 mg PO DAILY 06/10/17 Potassium Chloride [K-Dur -] 10 meq PO ASDIR 06/10/17 Apixaban [Eliquis -] 5 mg PO BID #10 tablet 06/12/17 Metoprolol Succinate [Toprol XL -] 25 mg PO DAILY #30 tab.sr.24h 06/12/17 Physical Examination Vital Signs: Vital Signs Temperature 98.5 F 06/10/17 16:03 Pulse Rate 61 06/10/17 16:03 Respiratory Rate 19 06/10/17 16:03 Blood Pressure 130/77 06/10/17 16:03 O2 Sat by Pulse Oximetry (%) 95 06/10/17 16:03 Constitutional: Yes: No Distress HENT: Yes: Atraumatic Neck: Yes: Supple Cardiovascular: Yes: Regular Rate and Rhythm Respiratory: Yes: CTA Bilaterally Gastrointestinal: Yes: Normal Bowel Sounds Extremities: Yes: WNL Edema: No Peripheral Pulses WNL: Yes Neurological: Yes: Alert, Oriented Labs: CBC, BMP 06/10/17 09:20 06/10/17 09:20 Problem List - Problems (1) Dizziness Assessment/Plan: feeling better Code(s): R42 - DIZZINESS AND GIDDINESS (2) Light headedness Code(s): R42 - DIZZINESS AND GIDDINESS (3) Cerebrovascular accident (CVA) Assessment/Plan: h/o...mri pending Code(s): I63.9 - CEREBRAL INFARCTION, UNSPECIFIED (4) Diabetes mellitus Assessment/Plan: on meds bgms Code(s): E11.9 - TYPE 2 DIABETES MELLITUS WITHOUT COMPLICATIONS (5) Hypertension Assessment/Plan: on meds Code(s): I10 - ESSENTIAL (PRIMARY) HYPERTENSION (6) Atrial fibrillation Assessment/Plan: on cardizem cardiology to see patient Code(s): I48.91 - UNSPECIFIED ATRIAL FIBRILLATION (7) Gout Code(s): M10.9 - GOUT, UNSPECIFIED (8) Hypercholesterolemia Assessment/Plan: on meds stable Code(s): E78.00 - PURE HYPERCHOLESTEROLEMIA, UNSPECIFIED (9) Prostate cancer Code(s): C61 - MALIGNANT NEOPLASM OF PROSTATE Assessment/Plan Laboratory Tests 06/10/17 06/10/17 06/10/17 09:20 09:20 09:20 WBC 7.9 RBC 5.61 H Hgb 16.5 Hct 48.2 MCV 85.8 MCH 29.5 MCHC 34.3 RDW 13.5 Plt Count 289 MPV 8.6 Neutrophils % 47.5 D Lymphocytes % 36.8 D Monocytes % 11.7 H Eosinophils % 2.2 Basophils % 1.8 Sodium 137 Potassium 3.5 Chloride 108 H Carbon Dioxide 26 Anion Gap 3 L BUN 15 Creatinine 1.2 Creat Clearance w eGFR 59.68 Random Glucose 123 H D Calcium 9.1 Total Bilirubin 0.5 AST 19 D ALT 26 D Alkaline Phosphatase 88 D Troponin I < 0.03 Total Protein 7.0 Albumin 4.2 Cholesterol 180 Urine Color Urine Appearance Urine pH Ur Specific Shade Urine Protein Urine Glucose (UA) Urine Ketones Urine Blood Urine Nitrite Urine Bilirubin Urine Urobilinogen Ur Leukocyte Esterase Urine RBC Urine WBC Ur Epithelial Cells Urine Bacteria 06/10/17 06/10/17 09:23 12:23 WBC RBC Hgb Hct MCV MCH MCHC RDW Plt Count MPV Neutrophils % Lymphocytes % Monocytes % Eosinophils % Basophils % Sodium Potassium Chloride Carbon Dioxide Anion Gap BUN Creatinine Creat Clearance w eGFR Random Glucose Calcium Total Bilirubin AST ALT Alkaline Phosphatase Troponin I Total Protein Albumin Cholesterol Urine Color Yellow Yellow Urine Appearance Clear Clear Urine pH 5.5 5.5 Ur Specific Shade 1.015 1.020 Urine Protein Negative Negative Urine Glucose (UA) Negative Negative Urine Ketones Negative Negative Urine Blood Negative Trace-intact H Urine Nitrite Negative Negative Urine Bilirubin Negative Negative Urine Urobilinogen 0.2 0.2 Ur Leukocyte Esterase Negative Negative Urine RBC 0-3 Urine WBC 0-3 Ur Epithelial Cells Few Urine Bacteria None seen Active Medications Generic Name Dose Route Start Last Admin Trade Name Dick PRN Reason Stop Dose Admin Sodium Chloride 1,000 mls @ 42 mls/hr 06/10/17 09:15 06/10/17 09:30 Normal Saline - IV 42 mls/hr ASDIR LEON Administration Active Medications Generic Name Dose Route Start Last Admin Trade Name Dick PRN Reason Stop Dose Admin Amlodipine Besylate 10 mg 06/11/17 10:00 Norvasc - PO DAILY LEON Aspirin 81 mg 06/11/17 10:00 Asa - PO DAILY LEON Colchicine 0.6 mg 06/11/17 10:00 Colcrys - PO DAILY LEON Ezetimibe 10 mg 06/11/17 10:00 Zetia - PO DAILY LEON Glipizide 2.5 mg 06/11/17 07:00 Glucotrol Xl - PO ACBK LEON Sodium Chloride 1,000 mls @ 75 mls/hr 06/10/17 17:30 06/10/17 19:18 Normal Saline - IV 75 mls/hr ASDIR LEON Administration Levetiracetam 750 mg 06/11/17 10:00 Keppra Xr - PO DAILY LEON Metformin HCl 1,000 mg 06/11/17 07:00 Glucophage - PO ACBK LEON Montelukast Sodium 10 mg 06/10/17 22:00 Singulair - PO HS LEON
--- NOTE | 2017-06-10 18:35 | CON.NEURO ---
Consult - History of Present Illness History of Present Illness: 70M with history of HTN, DM, high Chol, stroke (Mar, deficits in partial left visual field memory and balance), gout, and hypokalemia here today complaining of light-headedness, NV. Patient had seen his ENT yesterday for a sinus infection. He has frontal sinus pressure. Today when he woke up he stood up quickly and began to feel lightheaded. When he sits down the symptoms improve. Symptoms seem to related to position they are not persistent they're intermittent no other chest pain shortness of breath nausea vomiting diarrhea weakness numbness rashes. Denies any focal weakness. HX of ETH years ago, on ASA. HD CT : old [employer] infarct - Past Medical History Cardio/Vascular: Yes: HTN, Hyperlipdemia Endocrine: Yes: Diabetes Mellitus - Alcohol/Substance Use Hx Alcohol Use: No - Smoking History Smoking history: Never smoked Have you smoked in the past 12 months: No Aproximately how many cigarettes per day: 0 Home Medications - Allergies Allergies/Adverse Reactions: Allergies Allergy/AdvReac Type Severity Reaction Status Date / Time No Known Allergies Allergy Verified 06/10/17 10:51 - Home Medications Home Medications: Ambulatory Orders Amlodipine Besylate [Norvasc -] 10 mg PO DAILY 10/17/16 Cetirizine HCl [Zyrtec -] 10 mg PO DAILY 10/17/16 Colchicine 0.6 mg PO DAILY 10/17/16 Glipizide [Glipizide ER] 2.5 mg PO DAILY 10/17/16 Levetiracetam [Keppra Xr -] 750 mg PO DAILY 10/17/16 Metformin HCl 1,000 mg PO DAILY 10/17/16 Montelukast Na [Singulair -] 10 mg PO HS 10/17/16 Quetiapine Fumarate [Seroquel -] 75 mg PO BID 10/17/16 Valsartan [Diovan] 160 mg PO DAILY 10/17/16 Aspirin [ASA -] 81 mg PO DAILY 06/10/17 Ezetimibe [Zetia] 10 mg PO DAILY 06/10/17 Metoprolol Succinate [Toprol Xl] 50 mg PO DAILY 06/10/17 Potassium Chloride [K-Dur -] 10 meq PO ASDIR 06/10/17 Physical Exam-Neuro Vital Signs: Vital Signs Temperature 98.5 F 06/10/17 17:22 Pulse Rate 61 06/10/17 17:22 Respiratory Rate 19 06/10/17 17:22 Blood Pressure 132/74 06/10/17 17:22 O2 Sat by Pulse Oximetry (%) 95 06/10/17 17:22 Constitutional: Yes: Well Nourished Neck: Yes: WNL Labs: CBC, BMP 06/10/17 09:20 06/10/17 09:20 - Neuro Exam Level Of Consciousness: Yes: Alert (Awake, EOMI, left field cut, motor: mild L drift, no ataxia, reflxes reduced) NIH Stroke Scale - Last Known Well Date/Time & Onset Date Last Known Well: 06/10/17 Time Last Known Well: 09:00 - Initial Evaluation Level of consciousness: Alert Ask patient the month and their age: Answers both correctly Ask patient to open & close eyes; make fist and let go: Obeys both correctly Best gaze (horizontal eye movement): Normal Visual field testing: Partial hemianopia Facial paresis (Show teeth/raise eyebrows/close eyes tight): Normal symmetrical movement Motor Function: Left Arm: Drift Motor Function: Right Arm: Normal (extends arm 90 (or 45) degrees for 10 seconds without drift Motor Function: Left Leg: Normal (extends leg 30 degrees for 5 seconds without drift) Motor Function: Right Leg: Normal (extends leg 30 degrees for 5 seconds without drift) Limb Ataxia: No ataxia Sensory(Use pinprick test arms,legs,trunk,face/side to side): Normal Best language (Describe picture, name items, read sentences): No Aphasia Dysarthria (read several words): Normal articulation Extinction and Inattention: No abnormality - Total Score NIH Stroke Scale Score: 2 Imaging - Results Cat Scan: Report Reviewed, Image Reviewed Problem List - Problems (1) Cerebrovascular accident (CVA) Code(s): I63.9 - CEREBRAL INFARCTION, UNSPECIFIED (2) Diabetes mellitus Code(s): E11.9 - TYPE 2 DIABETES MELLITUS WITHOUT COMPLICATIONS (3) Vertigo Code(s): R42 - DIZZINESS AND GIDDINESS Assessment/Plan 1M with history of HTN, DM, high Chol, stroke (Mar, deficits in partial left visual field memory and balance), gout, and hypokalemia here today complaining of light-headedness, NV and imbalance HD CT : old [employer] infarct residual left field cut and drift r/o new stroke vs sinus/viral event check MRI BRAIN, doppler cont ASA for now a1c, tsh, b12 rehab Dr Anaya
[2017-06-10] MEDS ORDERED: dilTIAZem HCL 50 MG/10 ML - 10 ML VIAL ONE (20:22)
[2017-06-10] MEDS ORDERED: HEPARIN NA (PORCINE) 5,000 UNITS/ML 1ML VIAL IVPUSH PRN ×2 (20:29)
[2017-06-10] MEDS ORDERED: dilTIAZem HCL 25 MG/5 ML - 5 ML VIAL IVPUSH ONE (20:30)
[2017-06-10] MEDS ORDERED: HEPARIN INFUSION - 25,000 UNITS/500 ML INFUS.BAG IVPB SCH (20:30)
[2017-06-10 20:56] LABS: ACTIVATED PTT 20.2 SECONDS (24.0-38.9)
[2017-06-10 21:00] LABS: INR 1.07 (0.82-1.09)
[2017-06-10] MEDS: INSULIN SLIDING SCALE (NOVOLOG) 1 VIAL SQ SCH (21:14)
[2017-06-10] MEDS: MONTELUKAST NA 10 MG TABLET PO SCH (22:34)
[2017-06-10] MEDS: levETIRAcetam XR 750 MG TAB PO SCH (22:34)
[2017-06-11] MEDS: metFORMIN HCL 500 MG TABLET (FP) PO SCH (06:28)
[2017-06-11] MEDS: glipiZIDE-XL 2.5 MG TAB.ER.24 PO SCH (06:30)
[2017-06-11] MEDS: INSULIN SLIDING SCALE (NOVOLOG) 1 VIAL SQ SCH ×4 (06:30→21:47)
[2017-06-11 09:22] LABS: BASO % 0.9 % (0-2.0); EOS % 1.2 % (0-4.5); HEMATOCRIT 48.2 % (35.4-49); HEMOGLOBIN 16.4 GM/dl (11.7-16.9); LYMPH % 26.6 % (8-40); MEAN CELL VOLUME 85.3 fl (80-96); MEAN PLT VOLUME 8.6 fl (7.5-11.1); MONO % 10.5 % (3.8-10.2); NEUT % 60.8 % (42.8-82.8); PLATELET COUNT 275 K/MM3 (134-434); RBC 5.65 M/mm3 (4.00-5.60); RDW 13.6 % (11.9-15.9); WHITE BLOOD COUNT 9.2 K/mm3 (4.0-10.8)
--- NOTE | 2017-06-11 09:23 | CON.CARD ---
Consult Consult Specialty:: Cardiology Referred by:: Dr. Spain Reason for Consultation:: Cardiac evaluation - History of Present Illness Chief Complaint: Rapid ventricular response. Unsteady gait. 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 He has had sinus infection for which he was seen by ENT. His symptom was aggravated by movement and position. He also was found to have atrial fibrillation with RVR. He was started on Heparin drip and was given Cardizem IVP. Sinus rhythm has been restored. He denies chest pain, shortness of breath or palpitations. He denies paroxysmal nocturnal dyspnea or orthopnea. He denies fever or chills. He denies nausea, vomiting, diarrhea or abdominal pain. He denies prior episode of AF but has had intermittent palpitations. Denies any synope history. Of note he also has history of prostate CA post prostatectomy. - History Source History Provided By: Patient, Medical Record Limitations to Obtaining History: No Limitations - Past Medical History Cardio/Vascular: Yes: AFIB, HTN, Hyperlipdemia Rheumatology: Yes: Gout Endocrine: Yes: Diabetes Mellitus - Past Surgical History Past Surgical History: Yes: Prostatectomy - Alcohol/Substance Use Hx Alcohol Use: No - Smoking History Smoking history: Never smoked Have you smoked in the past 12 months: No Aproximately how many cigarettes per day: 0 Home Medications - Allergies Allergies/Adverse Reactions: Allergies Allergy/AdvReac Type Severity Reaction Status Date / Time No Known Allergies Allergy Verified 06/10/17 10:51 - Home Medications Home Medications: Ambulatory Orders Amlodipine Besylate [Norvasc -] 10 mg PO DAILY 10/17/16 Cetirizine HCl [Zyrtec -] 10 mg PO DAILY 10/17/16 Colchicine 0.6 mg PO DAILY 10/17/16 Glipizide [Glipizide ER] 2.5 mg PO DAILY 10/17/16 Levetiracetam [Keppra Xr -] 750 mg PO BID 10/17/16 Metformin HCl 1,000 mg PO DAILY 10/17/16 Montelukast Na [Singulair -] 10 mg PO HS 10/17/16 Quetiapine Fumarate [Seroquel -] 75 mg PO BID 10/17/16 Valsartan [Diovan] 160 mg PO DAILY 10/17/16 Aspirin [ASA -] 81 mg PO DAILY 06/10/17 Ezetimibe [Zetia] 10 mg PO DAILY 06/10/17 Metoprolol Succinate [Toprol Xl] 50 mg PO DAILY 06/10/17 Potassium Chloride [K-Dur -] 10 meq PO ASDIR 06/10/17 Review of Systems - Review of Systems Constitutional: denies: Chills, Fever Cardiovascular: reports: Palpitations. denies: Chest Pain, Shortness of Breath Respiratory: denies: Cough, Hemoptysis, Orthopnea, PND, SOB, SOB on Exertion Gastrointestinal: denies: Abdominal Pain, Constipation, Diarrhea, Melena, Nausea , Rectal Bleeding, Vomiting Neurological: reports: Dizziness, Unsteady Gait, Weakness. denies: Change in Speech, Headache, Numbness, Seizure, Syncope Vital Signs: Vital Signs Temperature 98.6 F 06/11/17 06:00 Pulse Rate 65 06/11/17 06:00 Respiratory Rate 06/11/17 08:46 Blood Pressure 118/56 06/11/17 06:00 O2 Sat by Pulse Oximetry (%) 96 06/11/17 08:46 Eyes: Yes: PERRL HENT: Yes: Atraumatic Neck: Yes: Supple Respiratory: Yes: CTA Bilaterally Gastrointestinal: Yes: Normal Bowel Sounds, Soft. No: Tenderness Cardiovascular: Yes: Regular Rate and Rhythm JVD: No Carotid Bruit: No PMI: Non-Displaced Heart Sounds: Yes: S1, S2. No: Gallop Edema: No - Other Data Labs, Other Data: INR, PTT INR 1.07 (0.82-1.09) 06/10/17 20:30 Troponin, BNP 06/10/17 06/10/17 06/11/17 09:20 18:37 02:15 Troponin I < 0.03 < 0.03 0.02 Laboratory Results - last 24 hr 06/10/17 06/10/17 06/10/17 09:20 09:20 09:20 WBC 7.9 Corrected WBC (auto) RBC 5.61 H Hgb 16.5 Hct 48.2 MCV 85.8 MCH 29.5 MCHC 34.3 RDW 13.5 Plt Count 289 MPV 8.6 Add Manual Diff Neutrophils % 47.5 D Lymphocytes % 36.8 D Monocytes % 11.7 H Eosinophils % 2.2 Basophils % 1.8 Manual Slide Review Platelet Comment Normal RBC Morphology PT with INR INR PTT (Actin FS) Sodium 137 Potassium 3.5 Chloride 108 H Carbon Dioxide 26 Anion Gap 3 L BUN 15 Creatinine 1.2 Creat Clearance w eGFR 59.68 POC Glucometer Random Glucose 123 H D Calcium 9.1 Total Bilirubin 0.5 AST 19 D ALT 26 D Alkaline Phosphatase 88 D Creatine Kinase Troponin I < 0.03 Total Protein 7.0 Albumin 4.2 Cholesterol 180 Urine Color Urine Appearance Urine pH Ur Specific Hamilton Urine Protein Urine Glucose (UA) Urine Ketones Urine Blood Urine Nitrite Urine Bilirubin Urine Urobilinogen Ur Leukocyte Esterase Urine RBC Urine WBC Ur Epithelial Cells Urine Bacteria 06/10/17 06/10/17 06/10/17 09:23 12:23 18:37 WBC Corrected WBC (auto) RBC Hgb Hct MCV MCH MCHC RDW Plt Count MPV Add Manual Diff Neutrophils % Lymphocytes % Monocytes % Eosinophils % Basophils % Manual Slide Review Platelet Comment Normal RBC Morphology PT with INR INR PTT (Actin FS) Sodium Potassium Chloride Carbon Dioxide Anion Gap BUN Creatinine Creat Clearance w eGFR POC Glucometer Random Glucose Calcium Total Bilirubin AST ALT Alkaline Phosphatase Creatine Kinase Troponin I < 0.03 Total Protein Albumin Cholesterol Urine Color Yellow Yellow Urine Appearance Clear Clear Urine pH 5.5 5.5 Ur Specific [place] 1.015 1.020 Urine Protein Negative Negative Urine Glucose (UA) Negative Negative Urine Ketones Negative Negative Urine Blood Negative Trace-intact H Urine Nitrite Negative Negative Urine Bilirubin Negative Negative Urine Urobilinogen 0.2 0.2 Ur Leukocyte Esterase Negative Negative Urine RBC 0-3 Urine WBC 0-3 Ur Epithelial Cells Few Urine Bacteria None seen 06/10/17 06/10/17 06/10/17 18:37 20:30 20:30 WBC Cancelled Corrected WBC (auto) Cancelled RBC Cancelled Hgb Cancelled Hct Cancelled MCV Cancelled MCH Cancelled MCHC Cancelled RDW Cancelled Plt Count Cancelled MPV Cancelled Add Manual Diff Cancelled Neutrophils % Lymphocytes % Monocytes % Eosinophils % Basophils % Manual Slide Review Cancelled Platelet Comment Cancelled Normal RBC Morphology Cancelled PT with INR 12.0 INR 1.07 PTT (Actin FS) 20.2 L Sodium Potassium Chloride Carbon Dioxide Anion Gap BUN Creatinine Creat Clearance w eGFR POC Glucometer Random Glucose Calcium Total Bilirubin AST ALT Alkaline Phosphatase Creatine Kinase 103 Troponin I Total Protein Albumin Cholesterol Urine Color Urine Appearance Urine pH Ur Specific [place] Urine Protein Urine Glucose (UA) Urine Ketones Urine Blood Urine Nitrite Urine Bilirubin Urine Urobilinogen Ur Leukocyte Esterase Urine RBC Urine WBC Ur Epithelial Cells Urine Bacteria 06/10/17 06/11/17 06/11/17 20:57 02:15 02:15 WBC Corrected WBC (auto) RBC Hgb Hct MCV MCH MCHC RDW Plt Count MPV Add Manual Diff Neutrophils % Lymphocytes % Monocytes % Eosinophils % Basophils % Manual Slide Review Platelet Comment Normal RBC Morphology PT with INR INR PTT (Actin FS) 71.7 H Sodium Potassium Chloride Carbon Dioxide Anion Gap BUN Creatinine Creat Clearance w eGFR POC Glucometer 124 Random Glucose Calcium Total Bilirubin AST ALT Alkaline Phosphatase Creatine Kinase Troponin I 0.02 Total Protein Albumin Cholesterol Urine Color Urine Appearance Urine pH Ur Specific Hamilton Urine Protein Urine Glucose (UA) Urine Ketones Urine Blood Urine Nitrite Urine Bilirubin Urine Urobilinogen Ur Leukocyte Esterase Urine RBC Urine WBC Ur Epithelial Cells Urine Bacteria 06/11/17 06/11/17 06/11/17 06:28 07:20 07:20 WBC 9.2 Corrected WBC (auto) RBC 5.65 H Hgb 16.4 Hct 48.2 MCV 85.3 MCH 29.0 MCHC 34.0 RDW 13.6 Plt Count 275 MPV 8.6 Add Manual Diff Neutrophils % 60.8 D Lymphocytes % 26.6 D Monocytes % 10.5 H Eosinophils % 1.2 Basophils % 0.9 Manual Slide Review Platelet Comment Normal RBC Morphology PT with INR INR PTT (Actin FS) 52.2 H D Sodium Potassium Chloride Carbon Dioxide Anion Gap BUN Creatinine Creat Clearance w eGFR POC Glucometer 127 Random Glucose Calcium Total Bilirubin AST ALT Alkaline Phosphatase Creatine Kinase Troponin I Total Protein Albumin Cholesterol Urine Color Urine Appearance Urine pH Ur Specific [place] Urine Protein Urine Glucose (UA) Urine Ketones Urine Blood Urine Nitrite Urine Bilirubin Urine Urobilinogen Ur Leukocyte Esterase Urine RBC Urine WBC Ur Epithelial Cells Urine Bacteria Atrial fibrillation with RVR, nonspecific T wave abnormality Repeat ECG sinus rhythm with nonspecific T wave abnormality Echo: Pending Imaging - Results Chest X-ray: Report Reviewed Cat Scan: Report Reviewed (Head CT chronic occipital infarct) EKG: Report Reviewed Problem List - Problems (1) Atrial fibrillation Code(s): I48.91 - UNSPECIFIED ATRIAL FIBRILLATION (2) Hypercholesterolemia Code(s): E78.00 - PURE HYPERCHOLESTEROLEMIA, UNSPECIFIED (3) Gout Code(s): M10.9 - GOUT, UNSPECIFIED (4) Prostate cancer Code(s): C61 - MALIGNANT NEOPLASM OF PROSTATE (5) Cerebrovascular accident (CVA) Code(s): I63.9 - CEREBRAL INFARCTION, UNSPECIFIED (6) Diabetes mellitus Code(s): E11.9 - TYPE 2 DIABETES MELLITUS WITHOUT COMPLICATIONS (7) Hypertension Code(s): I10 - ESSENTIAL (PRIMARY) HYPERTENSION Assessment/Plan 1. New onset atrial fibrillation with RVR - paroxysmal - conversion to sinus rhythm [id number] score at least 5-6 2. Hypertension 3. Hypercholesterolemia 4. Type 2 diabetes mellitus 5. CVA with visual deficit 6. History of gout 7. Prostate CA s/p prostatectomy PLAN: 1. Start NOAC - Eliquis 5 mg BID and stop Heparin drip 2. Add low dose beta anthony - Metoprolol ER 25 mg once a day 3. Instead of Norvasc, consider ACEI or ARB unless contraindicated 4. Consider statin therapy in addition to Zetia. Check fasting lipid panel 5. Transthoracic echocardiography to assess LV/RV and valvular function 6. Continue with neurology evaluation 7. Further cardiac work up including nuclear myocardial perfusion imaging can be done as outpatient. Further plans are to follow Blane Boucher MD
[2017-06-11 09:54] LABS: ALBUMIN 3.7 g/dl (3.4-5.0); ANION GAP 8 (8-16); BLOOD UREA NITROGEN 12 mg/dL (7-18); CHLORIDE 108 mmol/L (98-107); CO2 28 mmol/L (21-32); GLUCOSE,RANDOM 118 mg/dL (74-106); POTASSIUM 3.9 mmol/L (3.5-5.1); SODIUM 144 mmol/L (136-145)
[2017-06-11] MEDS: APIXABAN 5 MG TABLET PO SCH ×2 (10:00→21:40)
[2017-06-11] MEDS: VALSARTAN 80 MG TABLET (UD) PO SCH (10:00)
[2017-06-11] MEDS ORDERED: amLODIPine BESYLATE 10 MG TABLET (FP) PO SCH (10:00)
[2017-06-11] MEDS: metoPROLOL SUCCINATE 25 MG TAB.SR.24H (FP) PO SCH (10:00)
[2017-06-11] MEDS ORDERED: levETIRAcetam XR 750 MG TAB PO SCH (10:00)
[2017-06-11] MEDS: amLODIPine BESYLATE 5 MG TABLET (FP) PO SCH (10:00)
[2017-06-11] MEDS: ASPIRIN 81 MG CHEWABLE TABLETS PO SCH (10:01)
[2017-06-11] MEDS: EZETIMIBE 10 MG TABLET (FP) PO SCH (10:01)
[2017-06-11] MEDS: COLCHICINE 0.6 MG TABLET (FP) PO SCH (10:01)
[2017-06-11] MEDS: levETIRAcetam XR 750 MG TAB PO SCH ×2 (10:02→21:40)
[2017-06-11 10:06] LABS: ALK PHOS 99 U/L (45-117); BILIRUBIN,TOTAL 0.4 mg/dL (0.2-1.0); CREATININE 1.1 mg/dL (0.7-1.3); SGOT/AST 10 U/L (15-37); SGPT/ALT 26 U/L (12-78); TOT PROT 6.6 g/dl (6.4-8.2)
--- NOTE | 2017-06-11 10:15 | PN ---
Progress Note (short form) - Note Progress Note: 70M with history of HTN, DM, high Chol, stroke (Mar, deficits in partial left visual field memory and balance), gout, and hypokalemia here today complaining of light-headedness, NV. Patient had seen his ENT yesterday for a sinus infection. He has frontal sinus pressure. Today when he woke up he stood up quickly and began to feel lightheaded. When he sits down the symptoms improve. Symptoms seem to related to position they are not persistent they're intermittent no other chest pain shortness of breath nausea vomiting diarrhea weakness numbness rashes. Denies any focal weakness. HX of ETH years ago, on ASA. HD CT : old [employer] infarct FU: awaiting MRI NV yesterday but feeling better now - Past Medical History Cardio/Vascular: Yes: HTN, Hyperlipdemia Endocrine: Yes: Diabetes Mellitus - Alcohol/Substance Use Hx Alcohol Use: No - Smoking History Smoking history: Never smoked Have you smoked in the past 12 months: No Aproximately how many cigarettes per day: 0 Home Medications - Allergies Allergies/Adverse Reactions: Allergies Allergy/AdvReac Type Severity Reaction Status Date / Time No Known Allergies Allergy Verified 06/10/17 10:51 - Home Medications Home Medications: Ambulatory Orders Amlodipine Besylate [Norvasc -] 10 mg PO DAILY 10/17/16 Cetirizine HCl [Zyrtec -] 10 mg PO DAILY 10/17/16 Colchicine 0.6 mg PO DAILY 10/17/16 Glipizide [Glipizide ER] 2.5 mg PO DAILY 10/17/16 Levetiracetam [Keppra Xr -] 750 mg PO DAILY 10/17/16 Metformin HCl 1,000 mg PO DAILY 10/17/16 Montelukast Na [Singulair -] 10 mg PO HS 10/17/16 Quetiapine Fumarate [Seroquel -] 75 mg PO BID 10/17/16 Valsartan [Diovan] 160 mg PO DAILY 10/17/16 Aspirin [ASA -] 81 mg PO DAILY 06/10/17 Ezetimibe [Zetia] 10 mg PO DAILY 06/10/17 Metoprolol Succinate [Toprol Xl] 50 mg PO DAILY 06/10/17 Potassium Chloride [K-Dur -] 10 meq PO ASDIR 06/10/17 Physical Exam-Neuro Vital Signs: Vital Signs Temperature 98.6 F 06/11/17 06:00 Pulse Rate 65 06/11/17 06:00 Respiratory Rate 18 06/11/17 08:46 Blood Pressure 118/56 06/11/17 06:00 O2 Sat by Pulse Oximetry (%) 96 06/11/17 08:46 Constitutional: Yes: Well Nourished Neck: Yes: WNL Labs: CBCD WBC 9.2 K/mm3 (4.0-10.8) 06/11/17 07:20 RBC 5.65 M/mm3 (4.00-5.60) H 06/11/17 07:20 Hgb 16.4 GM/dl (11.7-16.9) 06/11/17 07:20 Hct 48.2 % (35.4-49) 06/11/17 07:20 MCV 85.3 fl (80-96) 06/11/17 07:20 MCHC 34.0 g/dl (32.0-35.9) 06/11/17 07:20 RDW 13.6 % (11.9-15.9) 06/11/17 07:20 Plt Count 275 K/MM3 (134-434) 06/11/17 07:20 MPV 8.6 fl (7.5-11.1) 06/11/17 07:20 CMP Sodium 144 mmol/L (136-145) 06/11/17 07:20 Potassium 3.9 mmol/L (3.5-5.1) 06/11/17 07:20 Chloride 108 mmol/L (98-107) H 06/11/17 07:20 Carbon Dioxide 28 mmol/L (21-32) 06/11/17 07:20 Anion Gap 8 (8-16) 06/11/17 07:20 BUN 12 mg/dL (7-18) 06/11/17 07:20 Creatinine 1.1 mg/dL (0.7-1.3) 06/11/17 07:20 Creat Clearance w eGFR > 60 (>60) 06/11/17 07:20 Calcium 9.0 mg/dL (8.5-10.1) 06/11/17 07:20 Total Bilirubin 0.4 mg/dL (0.2-1.0) 06/11/17 07:20 AST 10 U/L (15-37) L 06/11/17 07:20 ALT 26 U/L (12-78) 06/11/17 07:20 Alkaline Phosphatase 99 U/L (45-117) 06/11/17 07:20 Total Protein 6.6 g/dl (6.4-8.2) 06/11/17 07:20 Albumin 3.7 g/dl (3.4-5.0) 06/11/17 07:20 - Neuro Exam Level Of Consciousness: Yes: Alert (Awake, EOMI, left field cut, motor: mild L drift, no ataxia, reflxes reduced) NIH Stroke Scale - Last Known Well Date/Time & Onset Date Last Known Well: 06/10/17 Time Last Known Well: 09:00 - Initial Evaluation Level of consciousness: Alert Ask patient the month and their age: Answers both correctly Ask patient to open & close eyes; make fist and let go: Obeys both correctly Best gaze (horizontal eye movement): Normal Visual field testing: Partial hemianopia Facial paresis (Show teeth/raise eyebrows/close eyes tight): Normal symmetrical movement Motor Function: Left Arm: Drift Motor Function: Right Arm: Normal (extends arm 90 (or 45) degrees for 10 seconds without drift Motor Function: Left Leg: Normal (extends leg 30 degrees for 5 seconds without drift) Motor Function: Right Leg: Normal (extends leg 30 degrees for 5 seconds without drift) Limb Ataxia: No ataxia Sensory(Use pinprick test arms,legs,trunk,face/side to side): Normal Best language (Describe picture, name items, read sentences): No Aphasia Dysarthria (read several words): Normal articulation Extinction and Inattention: No abnormality - Total Score NIH Stroke Scale Score: 2 Imaging - Results Cat Scan: Report Reviewed, Image Reviewed Problem List - Problems (1) Cerebrovascular accident (CVA) Code(s): I63.9 - CEREBRAL INFARCTION, UNSPECIFIED (2) Diabetes mellitus Code(s): E11.9 - TYPE 2 DIABETES MELLITUS WITHOUT COMPLICATIONS (3) Vertigo Code(s): R42 - DIZZINESS AND GIDDINESS Assessment/Plan 1M with history of HTN, DM, high Chol, stroke (Mar, deficits in partial left visual field memory and balance), gout, and hypokalemia here today complaining of light-headedness, NV and imbalance HD CT : old [employer] infarct residual left field cut and drift r/o new stroke vs sinus/viral event awaiting MRI BRAIN, doppler cont ASA for now a1c, tsh, b12 rehab --PT to ambulate Dr Anaya Problem List - Problems (1) Cerebrovascular accident (CVA) Code(s): I63.9 - CEREBRAL INFARCTION, UNSPECIFIED (2) Diabetes mellitus Code(s): E11.9 - TYPE 2 DIABETES MELLITUS WITHOUT COMPLICATIONS (3) Vertigo Code(s): R42 - DIZZINESS AND GIDDINESS
--- NOTE | 2017-06-11 10:55 | EKG ---
Test Reason : Blood Pressure : / mmHG Vent. Rate : 132 BPM Atrial Rate : 113 BPM P-R Int : 000 ms QRS Dur : 088 ms QT Int : 308 ms P-R-T Axes : 000 -06 101 degrees QTc Int : 456 ms ATRIAL FIBRILLATION WITH RAPID VENTRICULAR RESPONSE MINIMAL VOLTAGE CRITERIA FOR LVH, MAY BE NORMAL VARIANT NONSPECIFIC T WAVE ABNORMALITY ABNORMAL ECG WHEN COMPARED WITH ECG OF 30-OCT-2016 16:32, ATRIAL FIBRILLATION HAS REPLACED SINUS RHYTHM VENT. RATE HAS INCREASED BY 56 BPM Confirmed by MARCI HOYOS MD ([id number]) on 06/11/2017 10:54:48 AM Referred By: MARCELLE TABOR Confirmed By:MARCI HOYOS MD
--- NOTE | 2017-06-11 12:27 | PN ---
Progress Note, Physician History of Present Illness: feeling good - Current Medication List Current Medications: Active Medications Amlodipine Besylate (Norvasc -) 5 mg PO DAILY PENDING SALE TO [facility] Last Admin: 06/11/17 10:00 Dose: 5 mg Apixaban (Eliquis -) 5 mg PO BID PENDING SALE TO [facility] Last Admin: 06/11/17 10:00 Dose: 5 mg Aspirin (Asa -) 81 mg PO DAILY PENDING SALE TO [facility] Last Admin: 06/11/17 10:01 Dose: 81 mg Colchicine (Colcrys -) 0.6 mg PO DAILY PENDING SALE TO [facility] Last Admin: 06/11/17 10:01 Dose: 0.6 mg Ezetimibe (Zetia -) 10 mg PO DAILY PENDING SALE TO [facility] Last Admin: 06/11/17 10:01 Dose: 10 mg Glipizide (Glucotrol Xl -) 2.5 mg PO ACBK PENDING SALE TO [facility] Last Admin: 06/11/17 06:30 Dose: 2.5 mg Insulin Aspart (Novolog Vial Sliding Scale -) 1 vial SQ [facility] PENDING SALE TO [facility] PRN Reason: Protocol Last Admin: 06/11/17 06:30 Dose: Not Given Levetiracetam (Keppra Xr -) 750 mg PO BID PENDING SALE TO [facility] Last Admin: 06/11/17 10:02 Dose: 750 mg Metformin HCl (Glucophage -) 1,000 mg PO BK PENDING SALE TO [facility] Last Admin: 06/11/17 06:28 Dose: 1,000 mg Metoprolol Succinate (Toprol Xl -) 25 mg PO DAILY PENDING SALE TO [facility] Last Admin: 06/11/17 10:00 Dose: 25 mg Montelukast Sodium (Singulair -) 10 mg PO HS PENDING SALE TO [facility] Last Admin: 06/10/17 22:34 Dose: 10 mg Valsartan (Diovan -) 80 mg PO DAILY PENDING SALE TO [facility] Last Admin: 06/11/17 10:00 Dose: 80 mg - Objective Vital Signs: Vital Signs Temperature 98.6 F 06/11/17 06:00 Pulse Rate 65 06/11/17 06:00 Respiratory Rate 18 06/11/17 08:46 Blood Pressure 118/56 06/11/17 06:00 O2 Sat by Pulse Oximetry (%) 96 06/11/17 08:46 Constitutional: Yes: No Distress HENT: Yes: Atraumatic Neck: Yes: Supple Cardiovascular: Yes: Regular Rate and Rhythm Respiratory: Yes: CTA Bilaterally Gastrointestinal: Yes: Normal Bowel Sounds Extremities: Yes: WNL Neurological: Yes: Alert, Oriented Labs: CBC, BMP 06/11/17 07:20 06/11/17 07:20 INR, PTT INR 1.07 (0.82-1.09) 06/10/17 20:30 Problem List - Problems (1) Dizziness Assessment/Plan: resolved Code(s): R42 - DIZZINESS AND GIDDINESS (2) Light headedness Code(s): R42 - DIZZINESS AND GIDDINESS (3) Cerebrovascular accident (CVA) Assessment/Plan: h/o...mri no new infarct Code(s): I63.9 - CEREBRAL INFARCTION, UNSPECIFIED (4) Diabetes mellitus Assessment/Plan: on meds bgms Code(s): E11.9 - TYPE 2 DIABETES MELLITUS WITHOUT COMPLICATIONS (5) Hypertension Assessment/Plan: on meds Code(s): I10 - ESSENTIAL (PRIMARY) HYPERTENSION (6) Atrial fibrillation Assessment/Plan: new onset on eliquis now cardiology to give prescription Code(s): I48.91 - UNSPECIFIED ATRIAL FIBRILLATION
[2017-06-11] MEDS ORDERED: PT OWN MED DRAWER 7, Y5N ONE (21:27)
[2017-06-11] MEDS: MONTELUKAST NA 10 MG TABLET PO SCH (21:40)
[2017-06-12] MEDS: glipiZIDE-XL 2.5 MG TAB.ER.24 PO SCH (06:04)
[2017-06-12] MEDS: INSULIN SLIDING SCALE (NOVOLOG) 1 VIAL SQ SCH ×2 (06:04→14:54)
[2017-06-12] MEDS: metFORMIN HCL 500 MG TABLET (FP) PO SCH (06:04)
[2017-06-12 08:56] VITALS: PULSE 69
[2017-06-12] MEDS: levETIRAcetam XR 750 MG TAB PO SCH (09:42)
[2017-06-12] MEDS: metoPROLOL SUCCINATE 25 MG TAB.SR.24H (FP) PO SCH (09:43)
[2017-06-12] MEDS: EZETIMIBE 10 MG TABLET (FP) PO SCH (09:43)
[2017-06-12] MEDS: amLODIPine BESYLATE 5 MG TABLET (FP) PO SCH (09:43)
[2017-06-12] MEDS: ASPIRIN 81 MG CHEWABLE TABLETS PO SCH (09:43)
[2017-06-12] MEDS: APIXABAN 5 MG TABLET PO SCH (09:43)
[2017-06-12] MEDS: VALSARTAN 80 MG TABLET (UD) PO SCH (09:43)
[2017-06-12] MEDS: COLCHICINE 0.6 MG TABLET (FP) PO SCH (09:43)
[2017-06-12 09:58] LABS: CHOLESTEROL 189 mg/dl; HDL CHOLESTEROL 37 mg/dl (29-89); LDL CHOLESTEROL (ONLY DFH) 123 mg/dl; TRIGLYCERIDES 144 mg/dl (35-160)
--- NOTE | 2017-06-12 12:07 | DS ---
Physical Examination Vital Signs: Vital Signs Temperature 98.4 F 06/12/17 08:55 Pulse Rate 69 06/12/17 08:55 Respiratory Rate 18 06/12/17 08:55 Blood Pressure 133/76 06/12/17 08:55 O2 Sat by Pulse Oximetry (%) 98 06/12/17 08:53 Constitutional: Yes: No Distress HENT: Yes: Atraumatic Neck: Yes: Supple Cardiovascular: Yes: Regular Rate and Rhythm Respiratory: Yes: CTA Bilaterally Gastrointestinal: Yes: Normal Bowel Sounds Extremities: Yes: WNL Neurological: Yes: Alert, Oriented Labs: CBC, BMP 06/11/17 07:20 06/11/17 07:20 Discharge Summary Reason For Visit: DIZZINESS, VERTIGO Current Active Problems Atrial fibrillation (Acute) Dizziness (Acute) Gout (Acute) Hypercholesterolemia (Acute) Light headedness (Acute) Prostate cancer (Acute) - Instructions Disposition: HOME - Home Medications Comprehensive Discharge Medication List: Ambulatory Orders Amlodipine Besylate [Norvasc -] 10 mg PO DAILY 10/17/16 Cetirizine HCl [Zyrtec -] 10 mg PO DAILY 10/17/16 Colchicine 0.6 mg PO DAILY 10/17/16 Glipizide [Glipizide ER] 2.5 mg PO DAILY 10/17/16 Levetiracetam [Keppra Xr -] 750 mg PO BID 10/17/16 Metformin HCl 1,000 mg PO DAILY 10/17/16 Montelukast Na [Singulair -] 10 mg PO HS 10/17/16 Quetiapine Fumarate [Seroquel -] 75 mg PO BID 10/17/16 Valsartan [Diovan] 160 mg PO DAILY 10/17/16 Aspirin [ASA -] 81 mg PO DAILY 06/10/17 Ezetimibe [Zetia] 10 mg PO DAILY 06/10/17 Potassium Chloride [K-Dur -] 10 meq PO ASDIR 06/10/17 Apixaban [Eliquis -] 5 mg PO BID #10 tablet 06/12/17 Metoprolol Succinate [Toprol XL -] 25 mg PO DAILY #30 tab.sr.24h 06/12/17 nm home
--- NOTE | 2017-06-12 12:22 | PN ---
Progress Note, Physician Chief Complaint: Complains of intermittent dizziness History of Present Illness: Patient was seen and examined. Awake and alert. Chart was reviewed Denies chest pain, SOB or palpitations Remains in sinus rhythm - Current Medication List Current Medications: Active Medications Amlodipine Besylate (Norvasc -) 5 mg PO DAILY [facility] Last Admin: 06/12/17 09:43 Dose: 5 mg Apixaban (Eliquis -) 5 mg PO BID [facility] Last Admin: 06/12/17 09:43 Dose: 5 mg Aspirin (Asa -) 81 mg PO DAILY [facility] Last Admin: 06/12/17 09:43 Dose: 81 mg Colchicine (Colcrys -) 0.6 mg PO DAILY [facility] Last Admin: 06/12/17 09:43 Dose: 0.6 mg Ezetimibe (Zetia -) 10 mg PO DAILY [facility] Last Admin: 06/12/17 09:43 Dose: 10 mg Glipizide (Glucotrol Xl -) 2.5 mg PO ACBK [facility] Last Admin: 06/12/17 06:04 Dose: 2.5 mg Insulin Aspart (Novolog Vial Sliding Scale -) 1 vial SQ [facility] PRN Reason: Protocol Last Admin: 06/12/17 06:04 Dose: Not Given Levetiracetam (Keppra Xr -) 750 mg PO BID [facility] Last Admin: 06/12/17 09:42 Dose: 750 mg Metformin HCl (Glucophage -) 1,000 mg PO ACBK [facility] Last Admin: 06/12/17 06:04 Dose: 1,000 mg Metoprolol Succinate (Toprol Xl -) 25 mg PO DAILY [facility] Last Admin: 06/12/17 09:43 Dose: 25 mg Montelukast Sodium (Singulair -) 10 mg PO HS [facility] Last Admin: 06/11/17 21:40 Dose: 10 mg Valsartan (Diovan -) 80 mg PO DAILY [facility] Last Admin: 06/12/17 09:43 Dose: 80 mg - Objective Vital Signs: Vital Signs Temperature 98.4 F 06/12/17 08:55 Pulse Rate 69 06/12/17 08:55 Respiratory Rate 18 06/12/17 08:55 Blood Pressure 133/76 06/12/17 08:55 O2 Sat by Pulse Oximetry (%) 98 06/12/17 08:53 Eyes: Yes: PERRL HENT: Yes: Atraumatic Neck: Yes: Supple Cardiovascular: Yes: Regular Rate and Rhythm, S1, S2 Respiratory: Yes: CTA Bilaterally Gastrointestinal: Yes: Normal Bowel Sounds, Soft. No: Tenderness Edema: No Additional Findings/Remarks: - Review of Systems Constitutional: denies: Chills, Fever Cardiovascular: reports: Palpitations. denies: Chest Pain, Shortness of Breath Respiratory: denies: Cough, Hemoptysis, Orthopnea, PND, SOB, SOB on Exertion Gastrointestinal: denies: Abdominal Pain, Constipation, Diarrhea, Melena, Nausea , Rectal Bleeding, Vomiting Neurological: reports: Dizziness, Unsteady Gait, Weakness. denies: Change in Speech, Headache, Numbness, Seizure, Syncope Labs: CBC, BMP 06/11/17 07:20 06/11/17 07:20 Problem List - Problems (1) Atrial fibrillation Code(s): I48.91 - UNSPECIFIED ATRIAL FIBRILLATION (2) Hypercholesterolemia Code(s): E78.00 - PURE HYPERCHOLESTEROLEMIA, UNSPECIFIED (3) Gout Code(s): M10.9 - GOUT, UNSPECIFIED (4) Prostate cancer Code(s): C61 - MALIGNANT NEOPLASM OF PROSTATE (5) Cerebrovascular accident (CVA) Code(s): I63.9 - CEREBRAL INFARCTION, UNSPECIFIED (6) Diabetes mellitus Code(s): E11.9 - TYPE 2 DIABETES MELLITUS WITHOUT COMPLICATIONS (7) Hypertension Code(s): I10 - ESSENTIAL (PRIMARY) HYPERTENSION Assessment/Plan 1. New onset atrial fibrillation with RVR - paroxysmal - conversion to sinus rhythm [id number] score at least 5-6 2. Hypertension 3. Hypercholesterolemia 4. Type 2 diabetes mellitus 5. CVA with visual deficit 6. History of gout 7. Prostate CA s/p prostatectomy PLAN: 1. Continue Eliquis 5 mg BID 2. Continue Metoprolol ER 25 mg once a day 3. Continue Valsartan and uptitrate. Uptitrate Amlodipine to 10 mg once a day 4. Add statin therapy in addition to Zetia 5. Transthoracic echocardiography revealed normal left ventricular systolic function, mild to moderate MR 6. Continue with neurology evaluation - carotid Doppler negative 7. Further cardiac work up including nuclear myocardial perfusion imaging can be done as outpatient. Further plans are to follow Blane Boucher MD
[2017-06-12] MEDS ORDERED: amLODIPine BESYLATE 5 MG TABLET (FP) PO SCH (12:23)
[2017-06-12] MEDS ORDERED: amLODIPine BESYLATE 5 MG TABLET (FP) PO ONE (13:00)
[2017-06-12 14:18] VITALS: BP 122/67; TEMP 98.7
--- NOTE | 2017-06-12 17:35 | PN ---
Progress Note, Physician History of Present Illness: pt wants to stay today - Objective Vital Signs: Vital Signs Temperature 98.7 F 06/12/17 14:17 Pulse Rate 69 06/12/17 14:17 Respiratory Rate 18 06/12/17 17:00 Blood Pressure 122/67 06/12/17 14:17 O2 Sat by Pulse Oximetry (%) 95 06/12/17 17:00 Constitutional: Yes: No Distress HENT: Yes: Atraumatic Neck: Yes: Supple Cardiovascular: Yes: Regular Rate and Rhythm Respiratory: Yes: CTA Bilaterally Extremities: Yes: WNL Neurological: Yes: Alert, Oriented Labs: CBC, BMP 06/11/17 07:20 06/11/17 07:20 INR, PTT INR 1.07 (0.82-1.09) 06/10/17 20:30 Problem List - Problems (1) Dizziness Assessment/Plan: resolved Code(s): R42 - DIZZINESS AND GIDDINESS (2) Light headedness Code(s): R42 - DIZZINESS AND GIDDINESS (3) Cerebrovascular accident (CVA) Assessment/Plan: h/o...cva use walker at home as needed Code(s): I63.9 - CEREBRAL INFARCTION, UNSPECIFIED (4) Diabetes mellitus Assessment/Plan: on meds bgms Code(s): E11.9 - TYPE 2 DIABETES MELLITUS WITHOUT COMPLICATIONS (5) Hypertension Assessment/Plan: on meds Code(s): I10 - ESSENTIAL (PRIMARY) HYPERTENSION (6) Atrial fibrillation Assessment/Plan: on cardizem and blood thinner Code(s): I48.91 - UNSPECIFIED ATRIAL FIBRILLATION (7) Gout Code(s): M10.9 - GOUT, UNSPECIFIED (8) Hypercholesterolemia Code(s): E78.00 - PURE HYPERCHOLESTEROLEMIA, UNSPECIFIED (9) Prostate cancer Code(s): C61 - MALIGNANT NEOPLASM OF PROSTATE
[2017-06-12] MEDS ORDERED: ATORVASTATIN CA 20 MG TABLET (FP) PO SCH (22:00)
[2017-06-13] MEDS ORDERED: amLODIPine BESYLATE 10 MG TABLET (FP) PO SCH (10:00)
--- NOTE | 2017-06-16 12:38 | EKG ---
Test Reason : Blood Pressure : / mmHG Vent. Rate : 086 BPM Atrial Rate : 086 BPM P-R Int : 186 ms QRS Dur : 092 ms QT Int : 356 ms P-R-T Axes : 055 -05 037 degrees QTc Int : 426 ms NORMAL SINUS RHYTHM MINIMAL VOLTAGE CRITERIA FOR LVH, MAY BE NORMAL VARIANT NONSPECIFIC T WAVE ABNORMALITY ABNORMAL ECG WHEN COMPARED WITH ECG OF 30-OCT-2016 16:32, NO SIGNIFICANT CHANGE WAS FOUND Confirmed by ANNE COSME MD ([id number]) on 06/16/2017 12:38:28 PM Referred By: A[place]IN Confirmed By:ANNE COSME MD
--- NOTE | 2017-06-18 09:25 | EKG ---
Test Reason : Blood Pressure : / mmHG Vent. Rate : 068 BPM Atrial Rate : 068 BPM P-R Int : 214 ms QRS Dur : 098 ms QT Int : 380 ms P-R-T Axes : 065 -04 034 degrees QTc Int : 404 ms SINUS RHYTHM WITH 1ST DEGREE A-V BLOCK MINIMAL VOLTAGE CRITERIA FOR LVH, MAY BE NORMAL VARIANT NONSPECIFIC ST AND T WAVE ABNORMALITY ABNORMAL ECG WHEN COMPARED WITH ECG OF 10-JUN-2017 19:49, SINUS RHYTHM HAS REPLACED ATRIAL FIBRILLATION VENT. RATE HAS DECREASED BY [address] ELEVATION NOW PRESENT IN LATERAL LEADS NONSPECIFIC T WAVE ABNORMALITY NO LONGER EVIDENT IN ANTERIOR LEADS Confirmed by SOHA MARTINEZ, MARCI ([id number]) on 06/18/2017 9:25:12 AM Referred By: MD PAYNE Confirmed By:MARCI HOYOS MD
== END 2017-06-12 17:13 | disposition home or self-care (01) ==
LOC: FER 09:09 → FM/S 13:49
PROVIDERS: ADMIT Internal Medicine; ATTEND Internal Medicine
PROC: 3E033GC Introduction of Other Therapeutic Substance into Peripheral Vein, Percutaneous Approach (ICD-10-PCS; principal; 2017-06-10)
PROC: 3E0337Z Introduction of Electrolytic and Water Balance Substance into Peripheral Vein, Percutaneous Approach (ICD-10-PCS; 2017-06-10)
DX: R42 Dizziness and giddiness (principal); I10 Essential (primary) hypertension; I48.91 Unspecified atrial fibrillation; I69.398 Other sequelae of cerebral infarction; H53.8 Other visual disturbances; E11.9 Type 2 diabetes mellitus without complications; E78.5 Hyperlipidemia, unspecified; E87.6 Hypokalemia; M10.9 Gout, unspecified; F41.9 Anxiety disorder, unspecified; C61 Malignant neoplasm of prostate; Z79.82 Long term (current) use of aspirin; Z79.84 Long term (current) use of oral hypoglycemic drugs; Z79.01 Long term (current) use of anticoagulants
CPT/HCPCS: 36415; 70450-TC; 70551-TC; 71045-TC-FY; 80053; 80061; 81003; 81015; 82465; 82550; 82607; 82962; 83036; 84443; 84484; 85025; 85610; 85730; 87086; 93005; 93010; 93306-TC; 93880-TC; 96374; 96375; 97116-GP; 97161-GP; 99285-25; G0378; J1644; J7030

== ENCOUNTER 2017-06-22 19:21 | Inpatient (IN) | payer OTHER, BC ==
--- NOTE | 2017-06-22 19:50 | PDOC ---
History of Present Illness - General History Source: Patient Exam Limitations: No Limitations - History of Present Illness Initial Comments: 06/22/17 20:52 The patient is a 71 year old male with a significant past medical history of HTN , DM, HLD, CVA (03/2016, deficits in partial left visual field memory and balance ), GOUT, and hypokalemia who presents to the ED with diarrhea since earlier today and malaise for several days. Patient was recently admitted to [facility] ED for new onset Afib on 06/17/17 and discharged on 06/19/17 and was also admitted on 06/10/18 for lightheadedness/dizziness. He states he is currently on eliquis and has an appointment with his mental health worker next week. Patient reports a subjective fever, headache, intermittent pain to the back of his neck and 2 episodes of non bloody diarrhea earlier today. He also reports generalized malaise and decreased PO intake for the past several days. He states he has chronic sinusitis and is prone to ear infections in the left ear. Patient is also complaining of left ear pain for the past several days. Patient states he had a tooth removed 6 weeks ago. Denies chest pain or shortness of breath. Denies cough or rhinorrhea. Denies dysuria or changes in urinary outputs. Denies any other symptoms. Surgical hx: Radical prostatectomy <Shania Ford - Last Filed: 06/22/17 20:52> <Janene Welsh - Last Filed: 06/23/17 06:05> - General Chief Complaint: Nausea/Vomiting Stated Complaint: FLU LIKE SYMPTOMS Time Seen by Provider: 06/22/17 19:42 Past History <Shania Ford - Last Filed: 06/22/17 20:52> - Past Medical History Cancer: Yes (PROSTATE) CVA: Yes (MAR 2016, LEFT VISUAL FIELD DEFICIT) COPD: No (bronchitis) Diabetes: Yes (borderline DM) HTN: Yes Psychiatric Problems: Yes (ANXIETY) Seizures: No Thyroid Disease: No - Suicide/Smoking/Psychosocial Hx Smoking Status: No Smoking History: Never smoked Have you smoked in the past 12 months: No Number of Cigarettes Smoked Daily: 0 Hx Alcohol Use: No Drug/Substance Use Hx: No Substance Use Type: None <Janene Welsh - Last Filed: 06/23/17 06:05> - Past Medical History Allergies/Adverse Reactions: Allergies Allergy/AdvReac Type Severity Reaction Status Date / Time No Known Allergies Allergy Verified 06/22/17 19:52 Home Medications: Ambulatory Orders Amlodipine Besylate [Norvasc -] 10 mg PO DAILY 10/17/16 Cetirizine HCl [Zyrtec -] 10 mg PO DAILY 10/17/16 Colchicine 0.6 mg PO DAILY 10/17/16 Glipizide [Glipizide ER] 2.5 mg PO DAILY 10/17/16 Levetiracetam [Keppra Xr -] 750 mg PO BID 10/17/16 Metformin HCl 1,000 mg PO DAILY 10/17/16 Montelukast Na [Singulair -] 10 mg PO HS 10/17/16 Quetiapine Fumarate [Seroquel -] 75 mg PO BID 10/17/16 Valsartan [Diovan] 160 mg PO DAILY 10/17/16 Aspirin [ASA -] 81 mg PO DAILY 06/10/17 Ezetimibe [Zetia] 10 mg PO DAILY 06/10/17 Potassium Chloride [K-Dur -] 10 meq PO ASDIR 06/10/17 Apixaban [Eliquis -] 5 mg PO BID #10 tablet 06/12/17 Metoprolol Succinate [Toprol XL -] 25 mg PO DAILY #30 tab.sr.24h 06/12/17 Review of Systems - Review of Systems Able to Perform ROS?: Yes Comments:: 06/22/17 20:52 CONSTITUTIONAL: + malaise, subjective fever, decreased PO intake Absent: diaphoresis, generalized weakness HEENT: + ear pain Absent: rhinorrhea, nasal congestion, throat pain, throat swelling, difficulty swallowing, mouth swelling, eye pain, visual Changes CARDIOVASCULAR: Absent: chest pain, syncope, palpitations, irregular heart rate, lightheadedness , peripheral edema RESPIRATORY: Absent: cough, shortness of breath, dyspnea with exertion, orthopnea, wheezing, stridor, hemoptysis GASTROINTESTINAL:+ diarrhea Absent: abdominal pain, abdominal distension, nausea, vomiting, constipation, melena, hematochezia GENITOURINARY: Absent: dysuria, frequency, urgency, hesitancy, hematuria, flank pain, genital pain MUSCULOSKELETAL: + neck pain Absent: myalgia, arthralgia, joint swelling SKIN: Absent: rash, itching, pallor HEMATOLOGIC/IMMUNOLOGIC: Absent: easy bleeding, easy bruising, lymphadenopathy, frequent infections ENDOCRINE: Absent: unexplained weight gain, unexplained weight loss, heat intolerance, cold intolerance NEUROLOGIC: + headache Absent: focal weakness or paresthesias, dizziness, unsteady gait, seizure, mental status changes, bladder or bowel incontinence PSYCHIATRIC: Absent: anxiety, depression, suicidal or homicidal ideation, hallucinations. All Other Systems: Reviewed and Negative <Shania Ford - Last Filed: 06/22/17 20:52> *Physical Exam - Vital Signs Last Vital Signs Temp Pulse Resp BP Pulse Ox 100.6 F H 116 H 22 146/82 98 06/22/17 20:48 06/22/17 19:43 06/22/17 19:43 06/22/17 19:43 06/22/17 19:43 - Physical Exam Comments: 06/22/17 20:53 GENERAL: Well developed, well nourished. Awake and alert. No acute distress. HEENT:+ Erythematous oropharynx, dry mucous membranes Normocephalic, atraumatic. PERRLA, EOMI. No conjunctival pallor. Sclera are non- icteric. NECK: Supple. Full ROM. No JVD. Carotid pulses 2+ and symmetric, without bruits. No thyromegaly. No lymphadenopathy. CARDIOVASCULAR: Regular rate and rhythm. No murmurs, rubs, or gallops. Distal pulses are 2+ and symmetric. PULMONARY: No evidence of respiratory distress. Lungs clear to auscultation bilaterally. No wheezing, rales or rhonchi. ABDOMINAL: Soft. Non-tender. Non-distended. No rebound or guarding. No organomegaly. Normoactive bowel sounds. MUSCULOSKELETAL Normal range of motion at all joints. No bony deformities or tenderness. No CVA tenderness. EXTREMITIES: No cyanosis. No clubbing. No edema. No calf tenderness. SKIN: Warm and dry. Normal capillary refill. No rashes. No jaundice. NEUROLOGICAL: Alert, awake, appropriate. Cranial nerves 2-12 intact. No deficits to light touch and temperature in face, upper extremities and lower extremities. No motor deficits in the in face, upper extremities and lower extremities. Normoreflexic in the upper and lower extremities. Normal speech. Toes are down- going bilaterally. Gait is normal without ataxia. PSYCHIATRIC: Cooperative. Good eye contact. Appropriate mood and affect. <Shania Ford - Last Filed: 06/22/17 20:52> Heart Score/ECG Review #1 06/22/17 20:53 Vent rate [address] interval 198 ms QRS duration 78 ms Sinus tachycardia Reported by: Dr. Welsh <Shania Ford - Last Filed: 06/22/17 20:52> ED Treatment Course - LABORATORY CBC & Chemistry Diagram: 06/22/17 20:08 06/22/17 20:08 - ADDITIONAL ORDERS Additional order review: Laboratory Results 06/22/17 20:25 Urine Color Ltyellow Urine Appearance Clear Urine pH 5.0 Ur Specific [place] 1.018 Urine Protein Negative Urine Glucose (UA) Negative Urine Ketones Negative Urine Blood Negative Urine Nitrite Negative Urine Bilirubin Negative Urine Urobilinogen Negative Ur Leukocyte Esterase Negative 06/22/17 20:08 RBC 5.70 H MCV 85.4 MCHC 33.4 RDW 14.2 MPV 8.6 Neutrophils % 86.6 H D Lymphocytes % 5.2 L D Monocytes % 7.5 Eosinophils % 0.3 D Basophils % 0.4 <Shania Ford - Last Filed: 06/22/17 20:52> - LABORATORY CBC & Chemistry Diagram: 06/22/17 20:08 06/22/17 20:08 <Janene Welsh - Last Filed: 06/23/17 06:05> Medical Decision Making - Medical Decision Making 06/22/17 20:27 Pt comes with weakness and generalized malaise and feeling unwell. Pt is tachycardic. Febrile. Labs pending 06/22/17 22:24 Pt was hydrated and treated with IV tylenol. Pt's UA is normal; no sign of UTI. He also has no cough or cold. Pt has negative rapid strep. Unclear where pt's source of fever is. Pt did have a couple of episodes of diarrhea, and he eats out at [employer] on a regular basis. Uncl;ear if he was food poisoned, but he has no abd discomfort. Pt had a tooth extraction 6 weeks ago. He didn't receive prophylaxis for the extraction. It is possible that he is septic. Since the tooth extraction, he has felt unwell. He also had an episode of Afib. Last Wed he had an echocardiogram, but we do not have access to the results. Pt may have an infected valve. I do not hear a cardiac murmur, however. Pt will be treated with zosyn and vanc, as he has a + lactic acid of 3.3 Pt tells me that he has hx of infectious sinusitis. CT sinus pending. CXR pending 06/23/17 00:[address] sinus is clear also: 06/23/17 06:05 Pt admitted to hospitalist. ID consult requested <Janene Welsh - Last Filed: 06/23/17 06:05> *DC/Admit/Observation/Transfer - Attestations Scribe Attestion: 06/22/17 20:54 Documentation prepared by Shania Ford, acting as medical laboratory technician for Janene Welsh MD <Shania Ford - Last Filed: 06/22/17 20:52> - Discharge Dispostion Admit: Yes <Janene Welsh - Last Filed: 06/23/17 06:05> Diagnosis at time of Disposition: Fever, Malaise - Discharge Dispostion Condition at time of disposition: Guarded - Referrals Referrals: ON STAFF,NOT [Non Staff, Medical] - - Patient Instructions - Post Discharge Activity
[2017-06-22 20:29] LABS: BASO % 0.4 % (0-2.0); EOS % 0.3 % (0-4.5); HEMATOCRIT 48.7 % (35.4-49); HEMOGLOBIN 16.3 GM/dL (11.7-16.9); LYMPH % 5.2 % (8-40); MCH 28.6 pg (25.7-33.7); MCHC 33.4 g/dl (32.0-35.9); MEAN CELL VOLUME 85.4 fl (80-96); MEAN PLT VOLUME 8.6 fl (7.5-11.1); MONO % 7.5 % (3.8-10.2); NEUT % 86.6 % (42.8-82.8); PLATELET COUNT 298 K/MM3 (134-434); RDW 14.2 % (11.9-15.9)
[2017-06-22 20:32] LABS: URINE APPEARANCE CLEAR; URINE BILIRUBIN NEGATIVE (<2.0 mg/dL); URINE COLOR LTYELLOW; URINE GLUCOSE (UA) NEGATIVE (NEGATIVE); URINE KETONE NEGATIVE (NEGATIVE); URINE LEUK ESTERASE NEGATIVE (NEGATIVE); URINE NITRITE NEGATIVE (NEGATIVE); URINE PROTEIN NEGATIVE (NEGATIVE); URINE UROBILINOGEN NEGATIVE mg/dL (0.2-1.0)
[2017-06-22] MEDS ORDERED: ACETAMINOPHEN INJECTION 100 ML IVPB ONE (20:44)
[2017-06-22] MEDS ORDERED: ACETAMINOPHEN 1000 MG/100 ML VIAL (NON FORMULARY) IVPB ONE (20:48)
[2017-06-22] MEDS ORDERED: SODIUM CHLORIDE 0.9% 500 ML INFUS.BAG IV ONE (20:48)
[2017-06-22 20:55] LABS: ALBUMIN 4.2 g/dl (3.4-5.0); ANION GAP 7 (8-16); BLOOD UREA NITROGEN 18 mg/dL (7-18); CALCIUM 8.8 mg/dL (8.5-10.1); CHLORIDE 107 mmol/L (98-107); CO2 27 mmol/L (21-32); CREATININE 1.2 mg/dL (0.7-1.3); GLUCOSE,RANDOM 118 mg/dL (74-106); SGPT/ALT 31 U/L (12-78); SODIUM 141 mmol/L (136-145)
[2017-06-22 20:59] LABS: ALK PHOS 102 U/L (45-117); BILIRUBIN,TOTAL 0.5 mg/dL (0.2-1.0); TOT PROT 7.8 g/dl (6.4-8.2)
[2017-06-22 21:01] LABS: POTASSIUM 4.1 mmol/L (3.5-5.1); SGOT/AST 26 U/L (15-37)
[2017-06-22] MEDS ORDERED: VANCOMYCIN 1,000 MG in DEXTROSE 5%-WATER - 250 ML IVPB ONE (22:13)
[2017-06-22] MEDS ORDERED: PIPERACILLIN/TAZOB 3.375 GM 3.375 GM in DEXTROSE 5%-WATER - 50 ML IVPB ONE (22:13)
[2017-06-22] MEDS ORDERED: PIPERACILLIN/TAZOB 3.375 GM 3.375 GM/50 ML BAG IVPB ONE (22:15)
[2017-06-22] MEDS ORDERED: VANCOMYCIN 1 GRAM (PRE-DOCKED) 1,000 MG/250 ML BAG IVPB ONE (23:56)
[2017-06-23] MEDS ORDERED: KETOROLAC TROMETHAMINE 30 MG/1 ML VIAL IVPUSH ONE (01:59)
[2017-06-23] MEDS ORDERED: KETOROLAC TROMETHAMINE 30 MG/1 ML VIAL ONE (02:01)
--- NOTE | 2017-06-23 02:49 | PN ---
Teaching Attending Note Name of Resident: Sukhdev Hernandez ATTENDING PHYSICIAN STATEMENT I saw and evaluated the patient. I reviewed the resident's note and discussed the case with the resident. I agree with the resident's findings and plan as documented. SUBJECTIVE: 70 M with Pmhx. 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 Of note, pt. was recentlly admitted for [facility] ED for lightheadedness/dizziness and was ruled out for new CVA. Notes he has had chronic sinusitis and L. ear infections. States he has had L. Ear Pain. States he had a tooth removed 6 weeks ago. Noted Non-bloody, watery diarrhea X2 since yesterday OBJECTIVE: Physical: VS: Vital Signs Period Temp Pulse Resp BP Sys/[place] Pulse Ox Last 24 Hr 99.8 F-100.6 F 102-116 18-22 128-146/77-82 97-98 GEN: NAD, Resting in bed, AA0X3 HEENT: NCAT, PERRL, Throat without erythema or exudates CARD: RRR S1, S2 RESP: CTAB ABD: BSx4, NTD to Palpation EXT:- C/C/E CBCD WBC 17.0 K/mm3 (4.0-10.0) H D 06/22/17 20:08 RBC 5.70 M/mm3 (4.00-5.60) H 06/22/17 20:08 Hgb 16.3 GM/dL (11.7-16.9) D 06/22/17 20:08 Hct 48.7 % (35.4-49) 06/22/17 20:08 MCV 85.4 fl (80-96) 06/22/17 20:08 MCHC 33.4 g/dl (32.0-35.9) 06/22/17 20:08 RDW 14.2 % (11.9-15.9) 06/22/17 20:08 Plt Count 298 K/MM3 (134-434) 06/22/17 20:08 MPV 8.6 fl (7.5-11.1) 06/22/17 20:08 CMP Sodium 141 mmol/L (136-145) 06/22/17 20:08 Potassium 4.1 mmol/L (3.5-5.1) 06/22/17 20:08 Chloride 107 mmol/L (98-107) 06/22/17 20:08 Carbon Dioxide 27 mmol/L (21-32) 06/22/17 20:08 Anion Gap 7 (8-16) L 06/22/17 20:08 BUN 18 mg/dL (7-18) D 06/22/17 20:08 Creatinine 1.2 mg/dL (0.7-1.3) 06/22/17 20:08 Creat Clearance w eGFR 59.68 (>60) 06/22/17 20:08 Random Glucose 118 mg/dL (74-106) H 06/22/17 20:08 Calcium 8.8 mg/dL (8.5-10.1) 06/22/17 20:08 Total Bilirubin 0.5 mg/dL (0.2-1.0) D 06/22/17 20:08 AST 26 U/L (15-37) D 06/22/17 20:08 ALT 31 U/L (12-78) 06/22/17 20:08 Alkaline Phosphatase 102 U/L (45-117) 06/22/17 20:08 Total Protein 7.8 g/dl (6.4-8.2) 06/22/17 20:08 Albumin 4.2 g/dl (3.4-5.0) 06/22/17 20:08 CARDIAC ENZYMES Creatine Kinase 159 IU/L (39-308) 06/22/17 20:08 Troponin I < 0.02 ng/ml (0.00-0.05) 06/22/17 20:08 Home Medications Medication Instructions Recorded Amlodipine Besylate [Norvasc -] 10 mg PO DAILY 10/17/16 Cetirizine HCl [Zyrtec -] 10 mg PO DAILY 10/17/16 Colchicine 0.6 mg PO DAILY 10/17/16 Glipizide [Glipizide ER] 2.5 mg PO DAILY 10/17/16 Levetiracetam [Keppra Xr -] 750 mg PO BID 10/17/16 Metformin HCl 1,000 mg PO DAILY 10/17/16 Montelukast Na [Singulair -] 10 mg PO HS 10/17/16 Quetiapine Fumarate [Seroquel -] 75 mg PO BID 10/17/16 Valsartan [Diovan] 160 mg PO DAILY 10/17/16 Aspirin [ASA -] 81 mg PO DAILY 06/10/17 Ezetimibe [Zetia] 10 mg PO DAILY 06/10/17 Potassium Chloride [K-Dur -] 10 meq PO ASDIR 06/10/17 Apixaban [Eliquis -] 5 mg PO BID #10 tablet 06/12/17 Metoprolol Succinate [Toprol XL -] 25 mg PO DAILY #30 tab.sr.24h 06/12/17 06/22/17 20:53 Vent rate 114 bpm [place] interval 198 ms QRS duration [address] Sinuses: [facility] [employer] with periapical abscesses in maxilla. CXR: Negative Urine Test Results Urine Color Ltyellow 06/22/17 20:25 Urine Appearance Clear 06/22/17 20:25 Urine pH 5.0 (5.0-8.0) 06/22/17 20:25 Ur Specific [place] 1.018 (1.001-1.035) 06/22/17 20:25 Urine Protein Negative (NEGATIVE) 06/22/17 20:25 Urine Glucose (UA) Negative (NEGATIVE) 06/22/17 20:25 Urine Ketones Negative (NEGATIVE) 06/22/17 20:25 Urine Blood Negative (NEGATIVE) 06/22/17 20:25 Urine Nitrite Negative (NEGATIVE) 06/22/17 20:25 Urine Bilirubin Negative (<2.0 mg/dL) 06/22/17 20:25 Ur Leukocyte Esterase Negative (NEGATIVE) 06/22/17 20:25 ASSESSMENT AND PLAN: 71 M with hx. of htn, afib, gout, hld, prostate cam CVA who presents with diarrhea, malaise 1.) Sepsis - Most likely due to dental abscess/diarrhea - ECHO 06/11-Negative, in light of sepsis procedure repear - S/P Vanco/Zosyn in ED - Lea Cx - Repeat LA - IVF - Switch to Ceftriaxone - Stool Cx/C. Diff - Flagyl - ID Consult 2.) A- FIb - BB - Eliquis 3.) DM - FS - RAISS - Hold PO Meds 4.) RK - Mild - IVF 5.) HLD - C/W Statin 6.) Dvt Ppx - On Eliquis Place in Med-Sx
[2017-06-23] MEDS ORDERED: SODIUM CHLORIDE 1,000 ML IV STA (03:45)
[2017-06-23] MEDS ORDERED: POTASSIUM CHLORIDE TABS 20 MEQ TABLET.ER (FP) PO SCH (04:15)
--- NOTE | 2017-06-23 04:33 | HP ---
CHIEF COMPLAINT: malaise, fevers HISTORY OF PRESENT ILLNESS: Patient is a 71 yo M with a PmHx of HTN, DM, HLD, CVA (03/19), A-fib (eli), chronic sinusitis, MRSA, prostate cancer s/p prostectomy (1989), presented to the ED with 3 months of malaise, and fevers. Patient says he has recurrent sinus infections with multiple sinus surgeries with last week being the last time seeing an ENT. He said the ENT scoped his sinuses but found nothing. He says his malaise and fever goes away when he "decongests himself". He has been using his decongestants more than usual this past week. Patient also mentioned receiving a steroid shot on Friday for his sinuses, which usually elevates his glucose levels. He also mentions having Shingles a few months ago. Says he has been feeling bad ever since getting the shingles. He says he still feels pain around the site of his old rash around his left neck. Patient also reports 1 day of watery nonbloody diarrhea yesterday. He also mentions having a tooth extraction 6 weeks ago without antibiotic ppx. He denies weight loss, recent travel, sick contacts, sob, cough , chest pain. ER course was notable for: (1) Vanc/Zosyn (2) 1/2 L B NS Recent Travel: denies PAST MEDICAL HISTORY: per hpi PAST SURGICAL HISTORY: Social History: Smoking: denies Alcohol: denies Drugs: denies Family History: Allergies No Known Allergies Allergy (Verified 06/22/17 19:52) HOME MEDICATIONS: Home Medications Medication Instructions Recorded Amlodipine Besylate [Norvasc -] 10 mg PO DAILY 10/17/16 Cetirizine HCl [Zyrtec -] 10 mg PO DAILY 10/17/16 Colchicine 0.6 mg PO DAILY 10/17/16 Glipizide [Glipizide ER] 2.5 mg PO DAILY 10/17/16 Levetiracetam [Keppra Xr -] 750 mg PO BID 10/17/16 Metformin HCl 1,000 mg PO DAILY 10/17/16 Montelukast Na [Singulair -] 10 mg PO HS 10/17/16 Quetiapine Fumarate [Seroquel -] 75 mg PO BID 10/17/16 Valsartan [Diovan] 160 mg PO DAILY 10/17/16 Aspirin [ASA -] 81 mg PO DAILY 06/10/17 Ezetimibe [Zetia] 10 mg PO DAILY 06/10/17 Potassium Chloride [K-Dur -] 10 meq PO ASDIR 06/10/17 Apixaban [Eliquis -] 5 mg PO BID #10 tablet 06/12/17 Metoprolol Succinate [Toprol XL -] 25 mg PO DAILY #30 tab.sr.24h 06/12/17 REVIEW OF SYSTEMS CONSTITUTIONAL: fevers, generalized weakness, malaise, loss of appetite Absent: chills, diaphoresis, weight change HEENT: rhinorrhea, nasal congestion, L ear pain Absent: throat pain, throat swelling, difficulty swallowing, mouth swelling, eye pain, visual changes CARDIOVASCULAR: Absent: chest pain, syncope, palpitations, irregular heart rate, lightheadedness , peripheral edema RESPIRATORY: Absent: cough, shortness of breath, dyspnea with exertion, orthopnea, wheezing, stridor, hemoptysis GASTROINTESTINAL:diarrhea Absent: abdominal pain, abdominal distension, nausea, vomiting, constipation, melena, hematochezia GENITOURINARY: Absent: dysuria, frequency, urgency, hesitancy, hematuria, flank pain, genital pain MUSCULOSKELETAL: neck pain Absent: myalgia, arthralgia, joint swelling, back pain SKIN: Absent: rash, itching, pallor HEMATOLOGIC/IMMUNOLOGIC: Absent: easy bleeding, easy bruising, lymphadenopathy, frequent infections NEUROLOGIC: Absent: headache, focal weakness or paresthesias, dizziness, unsteady gait, seizure, mental status changes, bladder or bowel incontinence PHYSICAL EXAMINATION Vital Signs - 24 hr 06/22/17 06/22/17 06/22/17 19:43 20:48 23:20 Temperature 99.8 F H 100.6 F H Pulse Rate 116 H Pulse Rate [ 102 H Left Radial] Respiratory 22 18 Rate Blood Pressure 146/82 Blood Pressure 128/77 [Left Arm] O2 Sat by Pulse 98 97 Oximetry (%) 06/23/17 03:59 Temperature 98.7 F Pulse Rate Pulse Rate [ 100 H Left Radial] Respiratory 18 Rate Blood Pressure Blood Pressure 115/69 [Left Arm] O2 Sat by Pulse 99 Oximetry (%) GENERAL: Awake, alert, and fully oriented, in no acute distress. HEAD: Normal with no signs of trauma. EYES: extraocular movements intact, sclera anicteric, conjunctiva clear. No lid lag. EARS, NOSE, THROAT: Ears normal, oropharynx clear without exudates. Moist mucous membranes. NECK: Normal range of motion, supple without lymphadenopathy, JVD, or masses. No TTP LUNGS: Breath sounds equal, clear to auscultation bilaterally. No wheezes, and no crackles. No accessory muscle use. HEART: tachy, normal S1 and S2 without murmur, rub or gallop. ABDOMEN: Soft, nontender, not distended, normoactive bowel sounds, no guarding, no rebound, no masses. UPPER EXTREMITIES: 2+ pulses, warm, well-perfused. No cyanosis. No clubbing. No peripheral edema. LOWER EXTREMITIES: 2+ pulses, warm, well-perfused. No calf tenderness. No peripheral edema. NEUROLOGICAL: Cranial nerves II-XII intact. Normal speech. Normal gait. PSYCHIATRIC: Cooperative. Good eye contact. Appropriate mood and affect. Laboratory Results - last 24 hr 06/22/17 06/22/17 06/22/17 20:08 20:08 20:25 WBC 17.0 H D RBC 5.70 H Hgb 16.3 D Hct 48.7 MCV 85.4 MCH 28.6 MCHC 33.4 RDW 14.2 Plt Count 298 MPV 8.6 Neutrophils % 86.6 H D Lymphocytes % 5.2 L D Monocytes % 7.5 Eosinophils % 0.3 D Basophils % 0.4 Sodium 141 Potassium 4.1 Chloride 107 Carbon Dioxide 27 Anion Gap 7 L BUN 18 D Creatinine 1.2 Creat Clearance w eGFR 59.68 Random Glucose 118 H Lactic Acid Calcium 8.8 Total Bilirubin 0.5 D AST 26 D ALT 31 Alkaline Phosphatase 102 Creatine Kinase 159 Creatine Kinase Index 0.6 CK-MB (CK-2) < 1.000 Troponin I < 0.02 Total Protein 7.8 Albumin 4.2 Urine Color Ltyellow Urine Appearance Clear Urine pH 5.0 Ur Specific Wilmot 1.018 Urine Protein Negative Urine Glucose (UA) Negative Urine Ketones Negative Urine Blood Negative Urine Nitrite Negative Urine Bilirubin Negative Urine Urobilinogen Negative Ur Leukocyte Esterase Negative 06/22/17 06/23/17 21:13 01:16 WBC RBC Hgb Hct MCV MCH MCHC RDW Plt Count MPV Neutrophils % Lymphocytes % Monocytes % Eosinophils % Basophils % Sodium Potassium Chloride Carbon Dioxide Anion Gap BUN Creatinine Creat Clearance w eGFR Random Glucose Lactic Acid 3.0 H* 3.0 H* Calcium Total Bilirubin AST ALT Alkaline Phosphatase Creatine Kinase Creatine Kinase Index CK-MB (CK-2) Troponin I Total Protein Albumin Urine Color Urine Appearance Urine pH Ur Specific Wilmot Urine Protein Urine Glucose (UA) Urine Ketones Urine Blood Urine Nitrite Urine Bilirubin Urine Urobilinogen Ur Leukocyte Esterase ASSESSMENT/PLAN: 1 yo M with a PmHx of HTN, DM, HLD, CVA (03/19), A-fib (eliquis), chronic sinusitis, MRSA, prostate cancer s/p prostectomy (1989), presents with diarrhea , malaise, and fevers for the past few months. #Sepsis -likely secondary to dental abscess/diarrhea -1x Vanc/Zosyn -Cont IV abx: Ceftriaxone, Flagyl -LA 3, FU repeat -Ucx, Bcx -CT Sinuses prelim reading: ?[facility] with periapical abscesses in maxilla. -Consult ENT if needed -IV fluids -Stool cultures, C. diff -ID consulted #A-fib -sinus rhythm -Rate control with Metoprolol 25mg -Eliquis 5mg BID #DM -BGM -ISS #RK -likely prerenal -IV fluids -avoid nephrotoxins -FU CMP -held valsartan 160mg #Hx of MRSA -MRSA swab #FEN -NS @100cc/hour -WNL -Diabetic diet #PPX -Eliquis 5mg BID Place in Med-Sx Med-surge Visit type - Emergency Visit Emergency Visit: Yes ED Registration Date: 06/23/17 Care time: The patient presented to the Emergency Department on the above date and was hospitalized for further evaluation of their emergent condition. - New Patient This patient is new to me today: Yes Date on this admission: 06/23/17 - Critical Care Critical Care patient: No Hospitalist Screening - Colonoscopy Questionnaire Colonoscopy Questionnaire: Colonoscopy Questionnaire - Patient: 50 - 75 years old and never had a screening colonoscopy: Unknown History of colon or rectal polyps, or CA: Unknown History of IBD, Crohn's disease or UC: Unknown History of abdominal radiation therapy as a child: Unknown - Relative: 1 with colon or rectal CA, or polyps at age 60 or younger: Unknown Colon or rectal CA diagnosed at age 45 or younger: Unknown Multiple relatives with colon or rectal CA: Unknown - Outcome: Screening Result: Negative Screen
[2017-06-23] MEDS: SODIUM CHLORIDE 1,000 ML IV SCH ×2 (06:48→15:33)
[2017-06-23] MEDS: INSULIN SLIDING SCALE (NOVOLOG) 1 VIAL SQ SCH ×4 (06:57→21:06)
[2017-06-23] MEDS ORDERED: INSULIN SLIDING SCALE (NOVOLOG) 1 VIAL SQ SCH (07:00)
[2017-06-23 08:21] LABS: BASO % 0.2 % (0-2.0); EOS % 0.2 % (0-4.5); HEMATOCRIT 43.1 % (35.4-49); HEMOGLOBIN 14.3 GM/dL (11.7-16.9); LYMPH % 4.5 % (8-40); MCH 28.4 pg (25.7-33.7); MCHC 33.1 g/dl (32.0-35.9); MEAN CELL VOLUME 85.7 fl (80-96); MEAN PLT VOLUME 8.3 fl (7.5-11.1); MONO % 6.6 % (3.8-10.2); NEUT % 88.5 % (42.8-82.8); PLATELET COUNT 236 K/MM3 (134-434); RBC 5.03 M/mm3 (4.00-5.60); RDW 14.8 % (11.9-15.9); WHITE BLOOD COUNT 19.7 K/mm3 (4.0-10.0)
[2017-06-23 08:28] LABS: INR 1.32 (0.82-1.09); PROTHROMBIN TIME (PATIENT) 14.9 SEC (9.98-11.88)
[2017-06-23 08:51] LABS: ALBUMIN 3.4 g/dl (3.4-5.0); ANION GAP 12 (8-16); BLOOD UREA NITROGEN 17 mg/dL (7-18); CALCIUM 8.4 mg/dL (8.5-10.1); CHLORIDE 111 mmol/L (98-107); CO2 21 mmol/L (21-32); CREATININE 1.3 mg/dL (0.7-1.3); GLUCOSE,RANDOM 110 mg/dL (74-106); SGOT/AST 13 U/L (15-37); SGPT/ALT 24 U/L (12-78); SODIUM 144 mmol/L (136-145)
[2017-06-23 08:52] LABS: ALK PHOS 87 U/L (45-117); BILIRUBIN,TOTAL 0.7 mg/dL (0.2-1.0); TOT PROT 6.2 g/dl (6.4-8.2)
--- NOTE | 2017-06-23 09:36 | PN ---
Progress Note, Physician Chief Complaint: ID Says yesterday developed 2 episodes of nonbloody diarrhea with fever and chills. Extraction of a right lower molar 6 weeks ago uneventful with mention here of "periapical abscess" Patient has no dental complaints however Has no diarrhea now and looks comfortable with no diarrhea NO travel HIV risk factors pets hobbies Had steroid injection shoulder 06/21 chronic pain He is diabetic recently seen by ENT with unremarkable exam - Current Medication List Current Medications: Active Medications Amlodipine Besylate (Norvasc -) 10 mg PO DAILY [facility] Apixaban (Eliquis -) 5 mg PO BID [facility] Aspirin (Asa -) 81 mg PO DAILY [facility] Colchicine (Colcrys -) 0.6 mg PO DAILY [facility] Ceftriaxone Sodium 1 gm/ (Dextrose) 50 mls @ 100 mls/hr IVPB DAILY [facility] Metronidazole (Flagyl 500mg Premixed Ivpb -) 500 mg in 100 mls @ 100 mls/hr IVPB Q8H-IV [facility] Sodium Chloride (Normal Saline -) 1,000 mls @ 100 mls/hr IV ASDIR [facility] Last Admin: 06/23/17 06:48 Dose: 100 mls/hr Insulin Aspart (Novolog Vial Sliding Scale -) 1 vial SQ ACHS [facility] PRN Reason: Protocol Last Admin: 06/23/17 06:57 Dose: Not Given Levetiracetam (Keppra Xr -) 750 mg PO BID [facility] Metoprolol Succinate (Toprol Xl -) 25 mg PO DAILY [facility] Potassium Chloride (K-Dur -) 10 meq PO DAILY [facility] Quetiapine Fumarate 50 mg/ (Quetiapine Fumarate 25 mg) 75 mg PO BID [facility] - Objective Vital Signs: Vital Signs Temperature 99.7 F H 06/23/17 08:00 Pulse Rate 92 H 06/23/17 08:00 Respiratory Rate 18 06/23/17 08:00 Blood Pressure 115/54 06/23/17 08:00 O2 Sat by Pulse Oximetry (%) 99 06/23/17 03:59 Constitutional: Yes: Well Nourished, No Distress Eyes: Yes: WNL, Conjunctiva Clear HENT: Yes: WNL, Atraumatic. No: Other (no purulence) Neck: Yes: WNL, Supple Cardiovascular: Yes: Regular Rate and Rhythm, S1, S2. No: Murmur Respiratory: Yes: WNL, Regular, CTA Bilaterally Edema: No Labs: CBC, BMP 06/23/17 08:07 06/23/17 08:07 INR, PTT INR 1.32 (0.82-1.09) H 06/23/17 08:07 Problem List - Problems (1) Sepsis Code(s): A41.9 - SEPSIS, UNSPECIFIED ORGANISM (2) Fever Code(s): R50.9 - FEVER, UNSPECIFIED (3) Diabetes mellitus Code(s): E11.9 - TYPE 2 DIABETES MELLITUS WITHOUT COMPLICATIONS (4) Dental abscess Code(s): K04.7 - PERIAPICAL ABSCESS WITHOUT SINUS Assessment/Plan Microbiology 06/23/17 02:00 Nasopharyngeal Swab Influenza Types A,B Antigen (RUDDY) - Final 06/23/17 02:00 Nasopharyngeal Swab - Final 06/22/17 20:51 Throat Group A Strep Rapid Antigen - Final Laboratory Tests 06/22/17 06/22/17 06/22/17 20:08 20:08 21:13 WBC 17.0 H D Hgb 16.3 D Plt Count 298 Monocytes % 7.5 Creat Clearance w eGFR 59.68 Lactic Acid 3.0 H* Total Bilirubin 0.5 D AST 26 D ALT 31 Alkaline Phosphatase 102 Total Protein Albumin 06/23/17 06/23/17 08:07 08:07 WBC 19.7 H Hgb 14.3 D Plt Count 236 D Monocytes % Creat Clearance w eGFR Lactic Acid Total Bilirubin AST ALT Alkaline Phosphatase Total Protein 6.2 L D Albumin 3.4 Assessment Fever chills in this diabetic man leukocytosis and elevated Lactic acid. Mention of periapical abscess on CT yet no pain or dental complaints found Extraction site looks fine grossly. Diarrhea noted but this not noted today. In short source of fever unclear Plan Empiric antibiotic Clindamycin Ceftriaxone pending cultures Official CT reading pending I looked at tit with Dr Archibald Sinuses look fine albeit prior surgery CRP Discussed with Dr Micah Richardson MD
[2017-06-23] MEDS ORDERED: QUEtiapine FUMARATE 25 MG TABLET (FP) PO SCH (10:00)
[2017-06-23] MEDS ORDERED: HEPARIN NA (PORCINE) 5,000 UNITS/ML 1ML VIAL SQ SCH (10:00)
[2017-06-23] MEDS ORDERED: cefTRIAXone SODIUM 1 GM VIAL ONE ×2 (10:52→11:41)
[2017-06-23] MEDS ORDERED: DEXTROSE 5%-WATER - 50 ML IVPB ONE ×2 (10:52→11:41)
--- NOTE | 2017-06-23 10:53 | CONS ---
DATE OF CONSULTATION: HISTORY: This is a 71-year-old male who I am asked to see after he was admitted yesterday with onset of fever and what he described as 2 episodes of nonbloody diarrhea. This 71-year-old male has multiple comorbidities including a stroke in 2017, which left him with a visual field deficit and loss of balance, diabetes mellitus, hyperlipidemia, and hypertension. He also has a history of atrial fibrillation for which he has been on Eliquis. He was recently in the hospital earlier in June for management of lightheadedness and dizziness. He has an appointment to see his messenger copy next week. Recently, he had a dental extraction of a right lower molar 6 weeks ago. He says this was uneventful and, otherwise, has had no complaints related to dental issues. Additionally, he routinely sees an ENT for a [id number] of chronic sinusitis and was recently endoscoped with what the patient said was an unremarkable evaluation. He has had previous sinus surgery. He was, otherwise, in his usual state of health until yesterday when he developed onset of fever, chills, and nonbloody diarrhea. He denied any vomiting, abdominal pain, or blood per rectum. The day before he had a steroid injected into his right shoulder for chronic right shoulder pain. Here his lactic acid was noted to be elevated as was his white count to 17,000. He was empirically treated with broad-spectrum antibiotics, and I am asked to see him for further evaluation. At the current time, he appears essentially back to back with no diarrhea today, no urinary complaints, no rash, no history of recent travel, HIV risk factors, exposure to pets, or unusual hobbies. He has not been around anybody that he knew to be ill. 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 PAST MEDICAL HISTORY: As noted above. Radical prostatectomy, multiple sinus surgeries. MEDICATIONS: Include amlodipine, colchicine, Glipizide, Keppra, metformin, Singulair, Seroquel, Diovan, aspirin, Zetia, Eliquis, metoprolol. ALLERGIES: None known. SOCIAL HISTORY: Retired. Nonsmoker. No history of drug use. FAMILY HISTORY: Reviewed and noncontributory. REVIEW OF SYSTEMS: Respiratory: No cough, shortness of breath, dyspnea, wheezing. Cardiac: No chest pain, palpitations, syncope, lightheadedness. Gastrointestinal: Diarrhea as noted. Genitourinary: No dysuria, frequency, urgency. Neuromuscular: Chronic right shoulder pain, recent steroid injection. No headaches. PHYSICAL EXAMINATION: General: He is a pleasant, alert male with a temperature max of 100.6, currently 99.7, pulse 92, blood pressure 115/54, respirations 18. HEENT: Reveals no sinus tenderness. Oropharynx without exudate. Several carious-appearing teeth noted. The prior extraction site on the right lower molar area was not tender with no abscess or drainage evident. Neck: Supple with some mild tenderness in the anterior cervical area. Lungs: Clear to percussion and auscultation. Heart: S1, S2. Regular rhythm without audible murmur. Abdomen: Soft, nontender without hepatosplenomegaly. Normoactive bowel sounds. Extremities: No clubbing, cyanosis, or edema. LABORATORY DATA: White count 19.7, hemoglobin 14.3, platelets 236 with 85% polys, 4 lymphocytes, 6 monocytes. INR 1.32. Chemistries: BUN 18, creatinine 1, lactic acid 3.2, liver enzymes within normal limits. Urinalysis screening negative for leukocyte esterase. Two sets of blood cultures as of now no growth. A urine culture was not obtained this admission. Chest x-ray shows no evidence of acute infiltrate. Sinus x-rays show prior sinus surgery but no air-fluid levels, and according to Dr. Archibald, unable to see the mandibular area. ASSESSMENT: A 71-year-old male known diabetic with multiple comorbidities who presents with a 1- to 2-day history of fevers, chills, leukocytosis, and elevated lactic acidosis in the absence of a clear-cut source. He looks well with no hemodynamic instability as part of a sepsis. His temperature currently is low grade. I find no localizing complaints, so it is hard to imagine a mandibular periapical abscess as reported being the cause of his fever and leukocytosis. He has no dental pain, and on further review and discussion with Dr. Archibald, Dr. Archibald mentions that he feels that the CT was overread and that he cannot in any way say there was a periapical mandibular abscess definitively. At this point, would suggest empiric therapy with a combination of clindamycin and ceftriaxone in the short term with a CRP pending blood and urine cultures. Depending on his clinical course, if he looks wells and otherwise no positive cultures, it may be reasonable to discontinue his antibiotic and observe. This was discussed with Dr. Obrien, who is his primary doctor. SLY CLARK M.D. [id number]
--- NOTE | 2017-06-23 11:06 | EKG ---
Test Reason : Blood Pressure : / mmHG Vent. Rate : 114 BPM Atrial Rate : 114 BPM P-R Int : 198 ms QRS Dur : 078 ms QT Int : 298 ms P-R-T Axes : 064 -06 069 degrees QTc Int : 410 ms SINUS TACHYCARDIA NONSPECIFIC T WAVE ABNORMALITY ABNORMAL ECG WHEN COMPARED WITH ECG OF 10-JUN-2017 22:30, VENT. RATE HAS INCREASED BY 46 BPM Confirmed by SANDEEP PAYNE MD ([id number]) on 06/23/2017 11:06:14 AM Referred By: Confirmed By:SANDEEP PAYNE MD
[2017-06-23] MEDS: CLINDAMYCIN 600MG PREMIX IVPB 600 MG/50 ML BAG IVPB SCH ×2 (11:37→17:01)
[2017-06-23] MEDS ORDERED: PT OWN MED DRAWER 7, Y5N ONE ×2 (11:41→12:25)
[2017-06-23] MEDS ORDERED: INSULIN (NOVOLOG) ASPART 100 UNITS/ML 10ML VIAL ONE (11:46)
[2017-06-23] MEDS: COLCHICINE 0.6 MG TABLET (FP) PO SCH (12:13)
[2017-06-23] MEDS: ASPIRIN 81 MG CHEWABLE TABLETS PO SCH (12:13)
[2017-06-23] MEDS: metoPROLOL SUCCINATE 25 MG TAB.SR.24H (FP) PO SCH (12:13)
[2017-06-23] MEDS: APIXABAN 5 MG TABLET PO SCH ×2 (12:14→21:05)
[2017-06-23] MEDS: POTASSIUM CHLORIDE TABS 10 MEQ TABLET.ER (FP) PO SCH (12:14)
[2017-06-23] MEDS: amLODIPine BESYLATE 10 MG TABLET (FP) PO SCH (12:14)
[2017-06-23] MEDS: QUETIAPINE FUMARATE 50 MG, QUETIAPINE FUMARATE 25 MG PO SCH ×2 (12:15→21:05)
[2017-06-23] MEDS: levETIRAcetam XR 750 MG TAB PO SCH ×2 (12:16→21:05)
[2017-06-23] MEDS: CEFTRIAXONE 1 GM in DEXTROSE 5%-WATER - 50 ML IVPB SCH (13:08)
[2017-06-23] MEDS: ACETAMINOPHEN 325 MG TABLET (FP) PO PRN (13:08)
[2017-06-23 14:22] VITALS: BMI 30.5
--- NOTE | 2017-06-23 16:25 | PN ---
Progress Note (short form) - Note Progress Note: chart reviewed admitted earlier today to Hosp service 70 M with Pmhx. 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 Of note, pt. was recentlly admitted for [facility] for lightheadedness/dizziness and was ruled out for new CVA. Notes he has had chronic sinusitis and L. ear infections. States he has had L. Ear Pain. States he had a tooth removed 6 weeks ago. Noted Non-bloody, watery diarrhea X2 since yesterday patient examined / chart reviewed / case discussed with Dr Rivera patient cooperative / states fever is the reason why he came to ER - but voices no complaints at this time states extensive hx of sinusitis requiring 3 surgical procedures -- his " sinuses have been acting up over last few weeks" Vital Signs Period Temp Pulse Resp BP Sys/Rivera Pulse Ox Last 24 Hr 98.7 F-100.6 F 92-116 18-22 107-149/54-83 97-99 oral cavity - poor dentition examined by Dr rivera - no significant findings neck supple / no nodes heart Reg S1/S2 Lungs clear bilat abd soft non tender ext no edema / no calf tenderness CBC, BMP 06/23/17 08:07 06/23/17 08:07 Microbiology 06/23/17 12:20 Stool Clostridium difficile Antigen (RUDDY) - Final 06/23/17 12:20 Stool Clostridium difficile Toxin Assay - Final 06/22/17 20:51 Throat Throat Culture - Final NO BETA HEMOLYTIC STREPTOCOCCI ISOLATED 06/22/17 20:51 Throat Group A Strep Rapid Antigen - Final 06/23/17 02:00 Nasopharyngeal Swab Influenza Types A,B Antigen (RUDDY) - Final 06/23/17 02:00 Nasopharyngeal Swab - Final Active Medications Acetaminophen (Tylenol -) 650 mg PO Q6H PRN PRN Reason: FEVER Last Admin: 06/23/17 13:08 Dose: 650 mg Amlodipine Besylate (Norvasc -) 10 mg PO DAILY [facility] Last Admin: 06/23/17 12:14 Dose: 10 mg Apixaban (Eliquis -) 5 mg PO BID [facility] Last Admin: 06/23/17 12:14 Dose: 5 mg Aspirin (Asa -) 81 mg PO DAILY [facility] Last Admin: 06/23/17 12:13 Dose: 81 mg Colchicine (Colcrys -) 0.6 mg PO DAILY [facility] Last Admin: 06/23/17 12:13 Dose: 0.6 mg Ceftriaxone Sodium 1 gm/ (Dextrose) 50 mls @ 100 mls/hr IVPB DAILY [facility] Last Admin: 06/23/17 13:08 Dose: 100 mls/hr Sodium Chloride (Normal Saline -) 1,000 mls @ 100 mls/hr IV ASDIR [facility] Last Admin: 06/23/17 15:33 Dose: 100 mls/hr Clindamycin Phosphate (Cleocin 600 Mg Premix Ivpb -) 600 mg in 50 mls @ 100 mls /hr IVPB Q8H-IV [facility] PRN Reason: Protocol Last Admin: 06/23/17 11:37 Dose: 100 mls/hr Insulin Aspart (Novolog Vial Sliding Scale -) 1 vial SQ ACHS [facility] PRN Reason: Protocol Last Admin: 06/23/17 11:51 Dose: Not Given Levetiracetam (Keppra Xr -) 750 mg PO BID [facility] Last Admin: 06/23/17 12:16 Dose: 750 mg Metoprolol Succinate (Toprol Xl -) 25 mg PO DAILY [facility] Last Admin: 06/23/17 12:13 Dose: 25 mg Potassium Chloride (K-Dur -) 10 meq PO DAILY [facility] Last Admin: 06/23/17 12:14 Dose: 10 meq Quetiapine Fumarate 50 mg/ (Quetiapine Fumarate 25 mg) 75 mg PO BID [facility] Last Admin: 06/23/17 12:15 Dose: 75 mg Problem List - Problems (1) Fever Assessment/Plan: clinically stable however elevated LA X 3 belcher culture / stool c/s follow up CT discuss with ID Code(s): R50.9 - FEVER, UNSPECIFIED (2) Malaise Code(s): R53.81 - OTHER MALAISE (3) Cerebrovascular accident (CVA) Code(s): I63.9 - CEREBRAL INFARCTION, UNSPECIFIED (4) Diabetes mellitus Code(s): E11.9 - TYPE 2 DIABETES MELLITUS WITHOUT COMPLICATIONS (5) Gastroenteritis Assessment/Plan: suzanne studies ordered Code(s): K52.9 - NONINFECTIVE GASTROENTERITIS AND COLITIS, UNSPECIFIED (6) Diarrhea Assessment/Plan: possible acute gastroenteritis Code(s): R19.7 - DIARRHEA, UNSPECIFIED
[2017-06-24] MEDS: CLINDAMYCIN 600MG PREMIX IVPB 600 MG/50 ML BAG IVPB SCH ×2 (01:05→10:18)
[2017-06-24] MEDS: SODIUM CHLORIDE 1,000 ML IV SCH ×2 (01:05→05:00)
[2017-06-24] MEDS: INSULIN SLIDING SCALE (NOVOLOG) 1 VIAL SQ SCH ×4 (06:26→22:08)
[2017-06-24 08:24] LABS: BASO % 0.4 % (0-2.0); EOS % 2.9 % (0-4.5); HEMATOCRIT 40.8 % (35.4-49); HEMOGLOBIN 13.6 GM/dL (11.7-16.9); LYMPH % 17.4 % (8-40); MCH 28.6 pg (25.7-33.7); MCHC 33.4 g/dl (32.0-35.9); MEAN CELL VOLUME 85.8 fl (80-96); MEAN PLT VOLUME 8.1 fl (7.5-11.1); MONO % 9.7 % (3.8-10.2); NEUT % 69.6 % (42.8-82.8); PLATELET COUNT 207 K/MM3 (134-434); RBC 4.75 M/mm3 (4.00-5.60); RDW 14.8 % (11.9-15.9); WHITE BLOOD COUNT 9.5 K/mm3 (4.0-10.0)
[2017-06-24 08:50] LABS: ANION GAP 13 (8-16); BLOOD UREA NITROGEN 12 mg/dL (7-18); CALCIUM 8.4 mg/dL (8.5-10.1); CHLORIDE 110 mmol/L (98-107); CO2 21 mmol/L (21-32); CREATININE 1.1 mg/dL (0.7-1.3); GLUCOSE,RANDOM 100 mg/dL (74-106); POTASSIUM 3.6 mmol/L (3.5-5.1); SODIUM 144 mmol/L (136-145)
[2017-06-24] MEDS ORDERED: PT OWN MED DRAWER 7, Y5N ONE ×2 (10:14→21:44)
[2017-06-24] MEDS ORDERED: cefTRIAXone SODIUM 1 GM VIAL ONE (10:15)
[2017-06-24] MEDS ORDERED: DEXTROSE 5%-WATER - 50 ML IVPB ONE (10:15)
[2017-06-24] MEDS: CEFTRIAXONE 1 GM in DEXTROSE 5%-WATER - 50 ML IVPB SCH (10:18)
[2017-06-24] MEDS: COLCHICINE 0.6 MG TABLET (FP) PO SCH (10:20)
[2017-06-24] MEDS: APIXABAN 5 MG TABLET PO SCH ×2 (10:20→22:07)
[2017-06-24] MEDS: POTASSIUM CHLORIDE TABS 10 MEQ TABLET.ER (FP) PO SCH (10:20)
[2017-06-24] MEDS: ASPIRIN 81 MG CHEWABLE TABLETS PO SCH (10:20)
[2017-06-24] MEDS: metoPROLOL SUCCINATE 25 MG TAB.SR.24H (FP) PO SCH (10:21)
[2017-06-24] MEDS: levETIRAcetam XR 750 MG TAB PO SCH ×2 (10:22→22:07)
[2017-06-24] MEDS: amLODIPine BESYLATE 10 MG TABLET (FP) PO SCH (10:22)
[2017-06-24] MEDS: QUETIAPINE FUMARATE 50 MG, QUETIAPINE FUMARATE 25 MG PO SCH (10:24)
[2017-06-24] MEDS: QUEtiapine FUMARATE 25 MG TABLET (FP) PO SCH ×2 (12:06→22:08)
--- NOTE | 2017-06-24 12:15 | PN ---
Progress Note (short form) - Note Progress Note: seen and examined in room sitting in chair - states feels much better diarrhea has subsided formed stools no abdominal pain / nausea / vomiting Vital Signs Period Temp Pulse Resp BP Sys/Rivera Pulse Ox Last 24 Hr 98.5 F-98.8 F 78-98 20-20 94-150/53-70 97-97 neck supple / no nodes heart Reg S1/S2 Lungs clear bilat abd soft non tender ext no edema / no calf tenderness CBC, BMP 06/24/17 07:30 06/24/17 07:30 CBC, BMP 06/23/17 08:07 06/23/17 08:07 04/26/17 Lactic acid -1.1 Microbiology 06/23/17 12:20 Stool Salmonella/Shigella Culture - Preliminary Pending Organism 06/23/17 12:20 Stool Yersinia Culture - Preliminary NO ENTERIC PATHOGENS, 24 HOURS, ON PRIMARY PLATES 06/23/17 12:20 Stool Vibrio Culture - Final NO GROWTH OF VIBRIO SPECIES OBTAINED 06/23/17 12:20 Stool Escherichia coli 0157 Culture - Final NO GROWTH OF E COLI 0157 OBTAINED 06/23/17 12:20 Stool Gram Stain - Final 06/22/17 21:00 Blood - Peripheral Venous Blood Culture - Preliminary NO GROWTH OBTAINED AFTER 24 HOURS, INCUBATION TO CONTINUE FOR 4 DAYS. 06/22/17 21:00 Blood - Peripheral Venous Blood Culture - Preliminary NO GROWTH OBTAINED AFTER 24 HOURS, INCUBATION TO CONTINUE FOR 4 DAYS. 06/23/17 12:20 Stool Clostridium difficile Antigen (RUDDY) - Final 06/23/17 12:20 Stool Clostridium difficile Toxin Assay - Final 06/22/17 20:51 Throat Throat Culture - Final NO BETA HEMOLYTIC STREPTOCOCCI ISOLATED 06/22/17 20:51 Throat Group A Strep Rapid Antigen - Final 06/23/17 02:00 Nasopharyngeal Swab Influenza Types A,B Antigen (RUDDY) - Final 06/23/17 02:00 Nasopharyngeal Swab - Final Active Medications Acetaminophen (Tylenol -) 650 mg PO Q6H PRN PRN Reason: FEVER Last Admin: 06/23/17 13:08 Dose: 650 mg Amlodipine Besylate (Norvasc -) 10 mg PO DAILY [facility] Last Admin: 06/24/17 10:22 Dose: 10 mg Apixaban (Eliquis -) 5 mg PO BID [facility] Last Admin: 06/24/17 10:20 Dose: 5 mg Aspirin (Asa -) 81 mg PO DAILY [facility] Last Admin: 06/24/17 10:20 Dose: 81 mg Colchicine (Colcrys -) 0.6 mg PO DAILY [facility] Last Admin: 06/24/17 10:20 Dose: 0.6 mg Sodium Chloride (Normal Saline -) 1,000 mls @ 100 mls/hr IV ASDIR [facility] Last Admin: 06/24/17 05:00 Dose: Not Given Insulin Aspart (Novolog Vial Sliding Scale -) 1 vial SQ ACHS [facility] PRN Reason: Protocol Last Admin: 06/24/17 12:12 Dose: Not Given Levetiracetam (Keppra Xr -) 750 mg PO BID [facility] Last Admin: 06/24/17 10:22 Dose: 750 mg Metoprolol Succinate (Toprol Xl -) 25 mg PO DAILY [facility] Last Admin: 06/24/17 10:21 Dose: 25 mg Metronidazole (Flagyl -) 500 mg PO TID [facility] Potassium Chloride (K-Dur -) 10 meq PO DAILY [facility] Last Admin: 06/24/17 10:20 Dose: 10 meq Quetiapine Fumarate (Seroquel -) 75 mg PO BID [facility] Last Admin: 06/24/17 12:06 Dose: Not Given Problem List - Problems (1) Fever Code(s): R50.9 - FEVER, UNSPECIFIED (2) Malaise Code(s): R53.81 - OTHER MALAISE (3) Cerebrovascular accident (CVA) Code(s): I63.9 - CEREBRAL INFARCTION, UNSPECIFIED (4) Diabetes mellitus Code(s): E11.9 - TYPE 2 DIABETES MELLITUS WITHOUT COMPLICATIONS (5) Gastroenteritis Code(s): K52.9 - NONINFECTIVE GASTROENTERITIS AND COLITIS, UNSPECIFIED (6) Diarrhea Code(s): R19.7 - DIARRHEA, UNSPECIFIED
[2017-06-24] MEDS: metroNIDAZOLE 250 MG TABLET PO SCH ×2 (13:52→22:07)
--- NOTE | 2017-06-24 15:00 | PN ---
Progress Note, Physician History of Present Illness: Feeling better Temps down No c/o fever/ chills WBC improved Tolerating antibiotics - Current Medication List Current Medications: Active Medications Acetaminophen (Tylenol -) 650 mg PO Q6H PRN PRN Reason: FEVER Last Admin: 06/23/17 13:08 Dose: 650 mg Amlodipine Besylate (Norvasc -) 10 mg PO DAILY [facility] Last Admin: 06/24/17 10:22 Dose: 10 mg Apixaban (Eliquis -) 5 mg PO BID [facility] Last Admin: 06/24/17 10:20 Dose: 5 mg Aspirin (Asa -) 81 mg PO DAILY [facility] Last Admin: 06/24/17 10:20 Dose: 81 mg Colchicine (Colcrys -) 0.6 mg PO DAILY [facility] Last Admin: 06/24/17 10:20 Dose: 0.6 mg Sodium Chloride (Normal Saline -) 1,000 mls @ 100 mls/hr IV ASDIR [facility] Last Admin: 06/24/17 05:00 Dose: Not Given Insulin Aspart (Novolog Vial Sliding Scale -) 1 vial SQ ACHS [facility] PRN Reason: Protocol Last Admin: 06/24/17 12:12 Dose: Not Given Levetiracetam (Keppra Xr -) 750 mg PO BID [facility] Last Admin: 06/24/17 10:22 Dose: 750 mg Metoprolol Succinate (Toprol Xl -) 25 mg PO DAILY [facility] Last Admin: 06/24/17 10:21 Dose: 25 mg Metronidazole (Flagyl -) 500 mg PO TID [facility] Last Admin: 06/24/17 13:52 Dose: 500 mg Potassium Chloride (K-Dur -) 10 meq PO DAILY [facility] Last Admin: 06/24/17 10:20 Dose: 10 meq Quetiapine Fumarate (Seroquel -) 75 mg PO BID [facility] Last Admin: 06/24/17 12:06 Dose: Not Given - Objective Vital Signs: Vital Signs Temperature 98.7 F 06/24/17 06:43 Pulse Rate 82 06/24/17 10:00 Respiratory Rate 20 06/24/17 10:00 Blood Pressure 150/70 06/24/17 10:00 O2 Sat by Pulse Oximetry (%) 97 06/23/17 20:19 Constitutional: Yes: No Distress Cardiovascular: Yes: Regular Rate and Rhythm, S1, S2 Respiratory: Yes: CTA Bilaterally Gastrointestinal: Yes: Normal Bowel Sounds, Soft. No: Tenderness Labs: CBC, BMP 06/24/17 07:30 06/24/17 07:30 INR, PTT INR 1.32 (0.82-1.09) H 06/23/17 08:07 Assessment/Plan Fever/ leukocytosis- improved Chronic sinusitis Continue empiric ceftriaxone/ clindamycin
[2017-06-25] MEDS: ACETAMINOPHEN 325 MG TABLET (FP) PO PRN (02:47)
[2017-06-25] MEDS: SODIUM CHLORIDE 1,000 ML IV SCH (05:57)
[2017-06-25] MEDS: metroNIDAZOLE 250 MG TABLET PO SCH (05:57)
[2017-06-25] MEDS: INSULIN SLIDING SCALE (NOVOLOG) 1 VIAL SQ SCH ×4 (06:11→22:06)
[2017-06-25] MEDS ORDERED: PT OWN MED DRAWER 7, Y5N ONE ×3 (10:15→21:56)
[2017-06-25] MEDS: COLCHICINE 0.6 MG TABLET (FP) PO SCH (10:21)
[2017-06-25] MEDS: POTASSIUM CHLORIDE TABS 10 MEQ TABLET.ER (FP) PO SCH (10:21)
[2017-06-25] MEDS: APIXABAN 5 MG TABLET PO SCH ×2 (10:21→22:05)
[2017-06-25] MEDS: levETIRAcetam XR 750 MG TAB PO SCH ×2 (10:21→22:05)
[2017-06-25] MEDS: ASPIRIN 81 MG CHEWABLE TABLETS PO SCH (10:21)
[2017-06-25] MEDS: amLODIPine BESYLATE 10 MG TABLET (FP) PO SCH (10:22)
[2017-06-25] MEDS: metoPROLOL SUCCINATE 25 MG TAB.SR.24H (FP) PO SCH (10:22)
[2017-06-25] MEDS: QUEtiapine FUMARATE 25 MG TABLET (FP) PO SCH ×2 (10:22→22:04)
--- NOTE | 2017-06-25 13:04 | PN ---
Progress Note (short form) - Note Progress Note: patient seen and examined d/w Dr Obrien he had loose stools as outp that have improved inpatient cdiff toxin positive Vital Signs Period Temp Pulse Resp BP Sys/Rivera Pulse Ox Last 24 Hr 98.0 F-98.6 F 66-85 18-22 109-140/57-70 98-99 cor-rrr lungs clear abd soft,nt ext no edema CBC, BMP 06/24/17 07:30 06/24/17 07:30 Microbiology 06/23/17 12:20 Stool Salmonella/Shigella Culture - Preliminary Unit Educator Species 06/23/17 12:20 Stool Yersinia Culture - Preliminary NO ENTERIC PATHOGENS, 24 HOURS, ON PRIMARY PLATES 06/23/17 12:20 Stool Vibrio Culture - Final NO GROWTH OF VIBRIO SPECIES OBTAINED 06/23/17 12:20 Stool Escherichia coli 0157 Culture - Final NO GROWTH OF E COLI 0157 OBTAINED 06/22/17 21:00 Blood - Peripheral Venous Blood Culture - Preliminary NO GROWTH OBTAINED AFTER 48 HOURS, INCUBATION TO CONTINUE FOR 3 DAYS. 06/22/17 21:00 Blood - Peripheral Venous Blood Culture - Preliminary NO GROWTH OBTAINED AFTER 48 HOURS, INCUBATION TO CONTINUE FOR 3 DAYS. 06/23/17 12:20 Stool Gram Stain - Final 06/23/17 12:20 Stool Clostridium difficile Antigen (RUDDY) - Final 06/23/17 12:20 Stool Clostridium difficile Toxin Assay - Final 06/22/17 20:51 Throat Throat Culture - Final NO BETA HEMOLYTIC STREPTOCOCCI ISOLATED 06/22/17 20:51 Throat Group A Strep Rapid Antigen - Final 06/23/17 02:00 Nasopharyngeal Swab Influenza Types A,B Antigen (RUDDY) - Final 06/23/17 02:00 Nasopharyngeal Swab - Final a/p cdiff colitis no evidence acute sinusitis po vancomycin for 10 days thanks
--- NOTE | 2017-06-25 13:33 | PN ---
Progress Note (short form) - Note Progress Note: seen and examined in room sitting in chair - states feels much better diarrhea has subsided formed stools no abdominal pain / nausea / vomiting Vital Signs Period Temp Pulse Resp BP Sys/Rivera Pulse Ox Last 24 Hr 97.7 F-98.6 F 66-85 18-22 109-140/57-70 98-99 neck supple / no nodes heart Reg S1/S2 Lungs clear bilat abd soft non tender ext no edema / no calf tenderness CBC, BMP 06/24/17 07:30 06/24/17 07:30 CBC, BMP 06/23/17 08:07 06/23/17 08:07 04/26/17 Lactic acid -1.1 Microbiology 06/23/17 12:20 Stool Salmonella/Shigella Culture - Preliminary [employer] Science Tutor Species 06/23/17 12:20 Stool Yersinia Culture - Preliminary NO ENTERIC PATHOGENS, 24 HOURS, ON PRIMARY PLATES 06/23/17 12:20 Stool Vibrio Culture - Final NO GROWTH OF VIBRIO SPECIES OBTAINED 06/23/17 12:20 Stool Escherichia coli 0157 Culture - Final NO GROWTH OF E COLI 0157 OBTAINED 06/22/17 21:00 Blood - Peripheral Venous Blood Culture - Preliminary NO GROWTH OBTAINED AFTER 48 HOURS, INCUBATION TO CONTINUE FOR 3 DAYS. 06/22/17 21:00 Blood - Peripheral Venous Blood Culture - Preliminary NO GROWTH OBTAINED AFTER 48 HOURS, INCUBATION TO CONTINUE FOR 3 DAYS. 06/23/17 12:20 Stool Gram Stain - Final 06/23/17 12:20 Stool Clostridium difficile Antigen (RUDDY) - Final 06/23/17 12:20 Stool Clostridium difficile Toxin Assay - Final 06/22/17 20:51 Throat Throat Culture - Final NO BETA HEMOLYTIC STREPTOCOCCI ISOLATED 06/22/17 20:51 Throat Group A Strep Rapid Antigen - Final 06/23/17 02:00 Nasopharyngeal Swab Influenza Types A,B Antigen (RUDDY) - Final 06/23/17 02:00 Nasopharyngeal Swab - Final Active Medications Acetaminophen (Tylenol -) 650 mg PO Q6H PRN PRN Reason: FEVER Last Admin: 06/23/17 13:08 Dose: 650 mg Amlodipine Besylate (Norvasc -) 10 mg PO DAILY [facility] Last Admin: 06/24/17 10:22 Dose: 10 mg Apixaban (Eliquis -) 5 mg PO BID [facility] Last Admin: 06/24/17 10:20 Dose: 5 mg Aspirin (Asa -) 81 mg PO DAILY [facility] Last Admin: 06/24/17 10:20 Dose: 81 mg Colchicine (Colcrys -) 0.6 mg PO DAILY [facility] Last Admin: 06/24/17 10:20 Dose: 0.6 mg Sodium Chloride (Normal Saline -) 1,000 mls @ 100 mls/hr IV ASDIR [facility] Last Admin: 06/24/17 05:00 Dose: Not Given Insulin Aspart (Novolog Vial Sliding Scale -) 1 vial SQ ACHS [facility] PRN Reason: Protocol Last Admin: 06/24/17 12:12 Dose: Not Given Levetiracetam (Keppra Xr -) 750 mg PO BID [facility] Last Admin: 06/24/17 10:22 Dose: 750 mg Metoprolol Succinate (Toprol Xl -) 25 mg PO DAILY [facility] Last Admin: 06/24/17 10:21 Dose: 25 mg Metronidazole (Flagyl -) 500 mg PO TID [facility] Potassium Chloride (K-Dur -) 10 meq PO DAILY [facility] Last Admin: 06/24/17 10:20 Dose: 10 meq Quetiapine Fumarate (Seroquel -) 75 mg PO BID [facility] Last Admin: 06/24/17 12:06 Dose: Not Given Problem List - Problems (1) Fever Code(s): R50.9 - FEVER, UNSPECIFIED (2) Malaise Code(s): R53.81 - OTHER MALAISE (3) Cerebrovascular accident (CVA) Code(s): I63.9 - CEREBRAL INFARCTION, UNSPECIFIED (4) Diabetes mellitus Code(s): E11.9 - TYPE 2 DIABETES MELLITUS WITHOUT COMPLICATIONS (5) Gastroenteritis Code(s): K52.9 - NONINFECTIVE GASTROENTERITIS AND COLITIS, UNSPECIFIED (6) Diarrhea Code(s): R19.7 - DIARRHEA, UNSPECIFIED
[2017-06-25] MEDS: VANCOMYCIN 250 MG/5 ML ORAL SOLUTION PO SCH (17:00)
[2017-06-25] MEDS: LIDOCAINE 2.5%/PRILOCAINE 2.5% (5 Gram/TUBE) TP SCH (23:00)
[2017-06-26] MEDS: VANCOMYCIN 250 MG/5 ML ORAL SOLUTION PO SCH ×4 (00:05→17:48)
[2017-06-26] MEDS: INSULIN SLIDING SCALE (NOVOLOG) 1 VIAL SQ SCH ×3 (06:12→17:25)
[2017-06-26] MEDS: SODIUM CHLORIDE 1,000 ML IV SCH ×2 (09:36)
[2017-06-26] MEDS: COLCHICINE 0.6 MG TABLET (FP) PO SCH (09:37)
[2017-06-26] MEDS: QUEtiapine FUMARATE 25 MG TABLET (FP) PO SCH (09:37)
[2017-06-26] MEDS: amLODIPine BESYLATE 10 MG TABLET (FP) PO SCH (09:37)
[2017-06-26] MEDS: POTASSIUM CHLORIDE TABS 10 MEQ TABLET.ER (FP) PO SCH (09:37)
[2017-06-26] MEDS: APIXABAN 5 MG TABLET PO SCH (09:38)
[2017-06-26] MEDS: ASPIRIN 81 MG CHEWABLE TABLETS PO SCH (09:38)
[2017-06-26] MEDS: levETIRAcetam XR 750 MG TAB PO SCH (09:38)
[2017-06-26] MEDS: metoPROLOL SUCCINATE 25 MG TAB.SR.24H (FP) PO SCH (09:38)
[2017-06-26] MEDS: LIDOCAINE 2.5%/PRILOCAINE 2.5% (5 Gram/TUBE) TP SCH (09:40)
[2017-06-26 14:05] VITALS: BP 123/75; PULSE 71; TEMP 97.6
--- NOTE | 2017-06-26 14:20 | DS ---
Physical Examination Vital Signs: Vital Signs Temperature 97.6 F 06/26/17 14:00 Pulse Rate 71 06/26/17 14:00 Respiratory Rate 20 06/26/17 14:00 Blood Pressure 123/75 06/26/17 14:00 O2 Sat by Pulse Oximetry (%) 97 06/25/17 21:00 Constitutional: Yes: Well Nourished Eyes: Yes: WNL HENT: Yes: Normocephalic Neck: Yes: Supple, Trachea Midline Cardiovascular: Yes: Regular Rate and Rhythm Respiratory: Yes: CTA Bilaterally Gastrointestinal: Yes: Normal Bowel Sounds, Soft ...Rectal Exam: Yes: Deferred Renal/: Yes: WNL Breast(s): Yes: WNL, Gynecomastia Musculoskeletal: Yes: WNL Extremities: Yes: WNL Edema: No Peripheral Pulses WNL: Yes Integumentary: Yes: WNL Neurological: Yes: Alert, Oriented ...Motor Strength: WNL Psychiatric: Yes: Alert, Oriented Labs: CBC, BMP 06/24/17 07:30 06/24/17 07:30 Discharge Summary Reason For Visit: Pt admitted due to fever, malaise and diarrhea. Current Active Problems Dental abscess (Acute) Diarrhea (Acute) Fever (Acute) Gastroenteritis (Acute) Malaise (Acute) Sepsis (Acute) Hospital Course: Noted positive for C diff. Diarrhea/ Leukocytosis resolved. Plan to DC home. Condition: Fair - Instructions Referrals: ON STAFF,NOT [Non Staff, Medical] - Disposition: HOME - Home Medications Comprehensive Discharge Medication List: Ambulatory Orders Amlodipine Besylate [Norvasc -] 10 mg PO DAILY 10/17/16 Cetirizine HCl [Zyrtec -] 10 mg PO DAILY 10/17/16 Colchicine 0.6 mg PO DAILY 10/17/16 Glipizide [Glipizide ER] 2.5 mg PO DAILY 10/17/16 Levetiracetam [Keppra Xr -] 750 mg PO BID 10/17/16 Metformin HCl 1,000 mg PO DAILY 10/17/16 Montelukast Na [Singulair -] 10 mg PO HS 10/17/16 Quetiapine Fumarate [Seroquel -] 75 mg PO BID 10/17/16 Valsartan [Diovan] 160 mg PO DAILY 10/17/16 Aspirin [ASA -] 81 mg PO DAILY 06/10/17 Ezetimibe [Zetia] 10 mg PO DAILY 06/10/17 Potassium Chloride [K-Dur -] 10 meq PO ASDIR 06/10/17 Apixaban [Eliquis -] 5 mg PO BID #10 tablet 06/12/17 Metoprolol Succinate [Toprol XL -] 25 mg PO DAILY #30 tab.sr.24h 06/12/17
== END 2017-06-26 19:27 | disposition home or self-care (01) | DRG 372 ==
LOC: SUPCPDRO 19:21 → JER 19:21 → JERBED 06-23 02:44 → J6S 06-23 06:39
PROVIDERS: ADMIT Family Medicine; ATTEND Family Medicine
DX: A04.72 Enterocolitis due to Clostridium difficile, not specified as recurrent (principal); N17.9 Acute kidney failure, unspecified; K04.7 Periapical abscess without sinus; I48.91 Unspecified atrial fibrillation; I10 Essential (primary) hypertension; E11.9 Type 2 diabetes mellitus without complications; E78.5 Hyperlipidemia, unspecified; D72.829 Elevated white blood cell count, unspecified; J32.9 Chronic sinusitis, unspecified
CPT/HCPCS: 36415; 70486-TC; 71046-TC-FY; 80048; 80053; 81003; 82550; 82553; 82962; 83605; 84484; 85025; 85610; 86140; 87040; 87045; 87046; 87070; 87081; 87177; 87186; 87205; 87209; 87324; 87430; 87449; 87804; 93005; 93010; 93306-TC; 99283-25; J0131; J7030

== ENCOUNTER 2017-10-25 21:32 | Emergency (ER) | payer OTHER, BC ==
[2017-10-25 21:47] VITALS: TEMP 98.4; BMI 30.4
--- NOTE | 2017-10-25 21:55 | PDOC ---
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 Pt states the pain started yesterday, is crampy and constant, and does not radiate. The pt has tried Maalox today, which relieved the pain temporarily. He came to the ER after the pain returned. There are no exacerbating or alleviating factors. He denies fevers/chills, vomiting or hematemesis, chest pain, SOB, urinary symptoms , or changes to BM. Pt had admission June 2017 at [facility], for new-onset A-fib. He was on Eliquis for 1 week, but was discontinued by his civil design technician. His blood sugar has been under control. He took it today at home, 85. PCP: Dr. Daniel Valera ([id number]) Cards: Dr. Boucher 10/25/17 23:29 10/26/17 03:33 Past History - Travel Traveled outside of the country in the last 30 days: No Close contact w/someone who was outside of country & ill: No - Past Medical History Allergies/Adverse Reactions: Allergies Allergy/AdvReac Type Severity Reaction Status Date / Time No Known Allergies Allergy Verified 10/25/17 21:41 Home Medications: Ambulatory Orders Cetirizine HCl [Zyrtec -] 10 mg PO DAILY 10/17/16 Glipizide [Glipizide ER] 2.5 mg PO DAILY 10/17/16 Valsartan [Diovan] 160 mg PO DAILY 10/17/16 metFORMIN HCL [Metformin HCl] 1,000 mg PO HS 10/17/16 Ezetimibe [Zetia] 10 mg PO DAILY 06/10/17 Amlodipine Besylate [Norvasc -] 10 mg PO DAILY tablet 06/26/17 Aspirin [ASA -] 81 mg PO DAILY tab.chew 06/26/17 Metoprolol Succinate [Toprol XL -] 25 mg PO DAILY tab.sr.24h 06/26/17 Potassium Chloride [K-Dur -] 10 meq PO DAILY tablet.er 06/26/17 Luverne-3 Fatty Acids [Luverne-3] 1,000 mg PO DAILY 10/25/17 Anemia: No Asthma: No Cancer: Yes (PROSTATE) Cardiac Disorders: No CVA: Yes (MAR 2016, LEFT VISUAL FIELD DEFICIT) COPD: No (bronchitis) CHF: No Dementia: No Diabetes: Yes (borderline DM) GI Disorders: No Disorders: No HTN: Yes Hypercholesterolemia: No Liver Disease: No Psychiatric Problems: Yes (ANXIETY) Seizures: No Thyroid Disease: No - Surgical History Abdominal Surgery: No Appendectomy: No Cardiac Surgery: No Cholecystectomy: No Lung Surgery: No Neurologic Surgery: No Orthopedic Surgery: No - Suicide/Smoking/Psychosocial Hx Smoking Status: No Smoking History: Never smoked Have you smoked in the past 12 months: No Number of Cigarettes Smoked Daily: 0 Information on smoking cessation initiated: No Hx Alcohol Use: No Drug/Substance Use Hx: No Substance Use Type: None Hx Substance Use Treatment: No Review of Systems - Review of Systems Able to Perform ROS?: Yes Is the patient limited Serbian proficient: No Constitutional: Yes: Weight Stable. No: Chills, Diaphoresis, Fever, Loss of Appetite, Weakness HEENTM: No: Blurred Vision, Recent change in vision, Hearing Loss, Throat Swelling, Difficulty Swallowing Respiratory: No: Cough, Orthopnea, Shortness of Breath, Wheezing Cardiac (ROS): No: Chest Pain, Edema, Irregular Heart Rate, Lightheadedness, Palpitations, Syncope, Chest Tightness ABD/GI: Yes: Nausea, Poor Appetite (x2 days), Poor Fluid Intake (poor fluid intake, prior 2 days with decreased appetite), Indigestion. No: Abdominal Distended, Abd. Pain w/ defecation, Blood Streaked Bowels, Constipated, Diarrhea , Difficulty Swallowing, Rectal Bleeding, Vomiting, Abdominal cramping : No: Burning, Dysuria, Frequency, Flank Pain, Hematuria, Incontinence, Urgency Musculoskeletal: Yes: Joint Pain (recent L shoulder - rotator cuff injury). No : Back Pain, Muscle Pain, Muscle Weakness Integumentary: No: Bruising, Pruritus, Rash, Sweating Neurological: Yes: Headache (chronic frontal headache/frequent sinus infections) , Dizziness (since CVA 2016). No: Numbness, Seizure, Weakness, Unsteady Gait, Ataxia Psychiatric: No: Sleep Pattern Change, Change in Appetite Endocrine: No: Increased Urine, Change in Weight Hematologic/Lymphatic: Yes: Blood Clots (CVA 03/2016). No: Anemia, Easy Bleeding All Other Systems: Reviewed and Negative *Physical Exam - Vital Signs Last Vital Signs Temp Pulse Resp BP Pulse Ox 98.4 F 87 16 151/86 100 10/25/17 21:41 10/25/17 21:41 10/25/17 21:41 10/25/17 21:41 10/25/17 21:41 - Physical Exam General Appearance: Yes: Nourished, Appropriately Dressed, Obese. No: Apparent Distress (pt can lie comfortably in bed. Vitals stable. ) HEENT: positive: EOMI, TJ, Normal ENT Inspection, Normal Voice, Symmetrical, TMs Normal, Pharynx Normal, Hearing Grossly Normal. negative: Pale Conjunctivae , Scleral Icterus (R), Scleral Icterus (L), Pharyngeal Erythema, Tonsillar Exudate, Tonsillar Erythema, Nasal Congestion, Rhinorrhea, Sinus Tenderness, TM Bulging, TM Dull, TM Erythema Neck: positive: Trachea midline, Normal Thyroid, Supple. negative: Tender, Rigid, Lymphadenopathy (R), Lymphadenopathy (L) Respiratory/Chest: positive: Lungs Clear, Normal Breath Sounds. negative: Chest Tender, Respiratory Distress, Accessory Muscle Use, Decreased Breath Sounds, Crackles, Wheezing Cardiovascular: positive: Regular Rhythm, Regular Rate, S1, S2. negative: Edema , JVD, Murmur Vascular Pulses: Carotid (R): 4+, Carotid (L): 4+ Gastrointestinal/Abdominal: positive: Normal Bowel Sounds, Tender (mild epigastric tenderness to palpation, no rebound no guarding), Soft, Protuberent. negative: Flat, Organomegaly, Pulsatile Mass, Distended, Guarding, Rebound Rectal Exam: positive: deferred Lymphatic: negative: Adenopathy, Tenderness Musculoskeletal: positive: Normal Inspection. negative: CVA Tenderness Extremity: positive: Normal Capillary Refill, Normal Inspection, Normal Range of Motion, Pelvis Stable. negative: Tender, Delayed Capillary Refill, Pedal Edema Integumentary: positive: Normal Color, Dry, Warm. negative: Jaundice, Diaphoresis, Rash, Swelling, Ecchymosis Neurologic: positive: boiler mechanic II-XII NML intact, Fully Oriented, Alert, Normal Mood/ Affect, Normal Response, Motor Strength 5/5. negative: EOM Palsy, Facial Droop , Numbness, Sensory Deficit ED Treatment Course - LABORATORY CBC & Chemistry Diagram: 10/25/17 22:21 10/25/17 22:21 Medical Decision Making - Medical Decision Making (entered later) Pt seen at bedside, also seen by Dr. Welsh. Pt states current HTN likely due to anxiety (current pain is mild and is similar to his normal indigestion). Pt sees Dr. Boucher (cardiology) and they conducted a stress test after his last admission, which was normal. Pt provided 1L NS, 30 mg Maalox, and 40 mg IV pantoprazole. Ordered CBC, CMP, Mg, Phos, lipase, troponin, ECG. Labs WNL, troponin negative. ECG showed no acute changes, pt not currently in A-fib. NSR. HR 86 WV 178 QTC 433 Chest x-ray shows no acute changes from prior. Pt improved after medication and IVF. Pt states chest pain resolved. Advised pt to continue taking Maalox and Pepcid at home. Likely indigestion with negative cardiac work-up. Abdominal tenderness improved after interventions. 10/25/17 23:19 BP still 160s/90s. Will provide half dose of valsartan (80 mg PO) before leaving the department. 10/25/17 23:37 Pt provided valsartan before leaving. Pt will follow-up with PCP and civil design technician. Strict return precautions provided with pt understanding. Pt has a ride home with his nephew. 10/26/17 03:28 *DC/Admit/Observation/Transfer Diagnosis at time of Disposition: Atypical chest pain Acid reflux disease Qualifiers: Esophagitis presence: esophagitis presence not specified Qualified Code(s): K21.9 - Gastro-esophageal reflux disease without esophagitis - Discharge Dispostion Disposition: HOME Condition at time of disposition: Improved Decision to Admit order: No - Referrals Referrals: Daniel Valera Jr [Primary Care Provider] - Blane Boucher MD [Staff Physician] - - Patient Instructions Printed Discharge Instructions: DI for Atypical Chest Pain, DI for Dyspepsia Additional Instructions: You were seen today in the ER for chest discomfort and indigestion. We have provided some medications and fluids which alleviated your pain. Please follow- up with your primary care doctor and your civil design technician to discuss your visit and make sure your symptoms have improved. You can continue taking your over the counter medications (Maalox, Pepcid) for indigestion. Please return to the ER if you have worsening chest pain, chest pain that radiates to your arms, back, or face, worsening shortness of breath, inability to tolerate food or fluids, or any other concerns. - Post Discharge Activity
[2017-10-25] MEDS ORDERED: MAG HYDROX/AL HYDROX/SIMETH 30 ML UNIT-DOSE CUP PO ONE (22:16)
[2017-10-25] MEDS ORDERED: PANTOPRAZOLE SODIUM 40 MG VIAL IVPUSH ONE (22:16)
[2017-10-25] MEDS ORDERED: SODIUM CHLORIDE 1,000 ML IV STA (22:21)
[2017-10-25] MEDS ORDERED: MAG HYDROX/AL HYDROX/SIMETH 30 ML UNIT-DOSE CUP ONE (22:24)
[2017-10-25] MEDS ORDERED: PANTOPRAZOLE SODIUM 40 MG VIAL ONE (22:25)
[2017-10-25 22:34] LABS: BASO % 0.8 % (0-2.0); EOS % 2.7 % (0-4.5); HEMATOCRIT 48.3 % (35.4-49); LYMPH % 37.8 % (8-40); MCH 27.9 pg (25.7-33.7); MCHC 33.2 g/dl (32.0-35.9); MEAN CELL VOLUME 84.1 fl (80-96); NEUT % 46.7 % (42.8-82.8); PLATELET COUNT 309 K/MM3 (134-434); RBC 5.74 M/mm3 (4.00-5.60); RDW 13.8 % (11.9-15.9); WHITE BLOOD COUNT 8.3 K/mm3 (4.0-10.0)
[2017-10-25 22:47] LABS: PROTHROMBIN TIME (PATIENT) 11.3 SEC (9.7-13.0)
[2017-10-25 22:57] LABS: ALBUMIN 3.8 g/dl (3.4-5.0); ANION GAP 8 MMOL/L (8-16); BILIRUBIN,TOTAL 0.2 mg/dL (0.2-1.0); BLOOD UREA NITROGEN 12 mg/dL (7-18); CALCIUM 8.9 mg/dL (8.5-10.1); CHLORIDE 106 mmol/L (98-107); CO2 26 mmol/L (21-32); CREATININE 1.3 mg/dL (0.7-1.3); GLUCOSE,RANDOM 108 mg/dL (74-106); LIPASE 198 U/L (73-393); PHOSPHOROUS 3.5 mg/dL (2.5-4.9); POTASSIUM 4.1 mmol/L (3.5-5.1); SGOT/AST 19 U/L (15-37); SGPT/ALT 34 U/L (12-78); SODIUM 140 mmol/L (136-145); TOT PROT 7.2 g/dl (6.4-8.2)
[2017-10-25 23:00] LABS: ALK PHOS 96 U/L (45-117)
--- NOTE | 2017-10-25 23:24 | PDOC ---
Attending Attestation - Resident Resident Name: Juana Lou - ED Attending Attestation I have performed the following: I have examined & evaluated the patient, The case was reviewed & discussed with the resident, I agree w/resident's findings & plan - HPI HPI: 10/25/17 23:25 The patient is a 71 year old male, with a significant past medical history of anxiety, HTN, DM, HLD, CVA (03/2016, deficits in partial left visual field memory and balance), GOUT, and hypokalemia, who presents to the emergency department with, sternal chest pain and epigastric pain. As per patient, his chest pain is worsened when lying flat. He reports associated nausea without emesis. Prior to the onset of his symptoms he checked his blood pressure and it was elevated. The patient was previously diagnosed with AFib and placed on Eliquis which he no longer takes because it has resolved after a week. He denies any recent fevers, chills, headache or dizziness. He denies any recent vomit, diarrhea or constipation. He denies any recent chest pain. He denies any recent dysuria, frequency, urgency or hematuria. Allergies: NKA Past surgical history: Radical prostatectomy . Primary Care Physician: Dr. Valera - Physicial Exam PE: 10/25/17 23:46 GENERAL: Awake, alert, and fully oriented, in no acute distress HEAD: No signs of trauma EYES: PERRLA, EOMI, sclera anicteric, conjunctiva clear ENT: Auricles normal inspection, hearing grossly normal, nares patent, oropharynx clear without exudates. Moist mucosa NECK: Normal ROM, supple, no lymphadenopathy, JVD, or masses LUNGS: Breath sounds equal, clear to auscultation bilaterally. No wheezes, and no crackles HEART: Regular rate and rhythm, normal S1 and S2, no murmurs, rubs or gallops ABDOMEN: Soft, nontender, normoactive bowel sounds. No guarding, no rebound. No masses EXTREMITIES: Normal range of motion, no edema. No clubbing or cyanosis. No cords, erythema, or tenderness NEUROLOGICAL: Cranial nerves II through XII grossly intact. Normal speech, normal gait SKIN: Warm, Dry, normal turgor, no rashes or lesions noted. <Tea Omer - Last Filed: 10/25/17 23:46> - Medical Decision Making 10/26/17 20:38 Pt's labs exam and vitals, EKG and CXR normal. He was reassured and sent home with his nephew; outpatient follow up with PMD/cards as needed. <Janene Welsh - Last Filed: 10/26/17 20:38> Attestations - Attestations 10/25/17 23:25 Documentation prepared by Tea Omer, acting as medical officer psychiatry for Janene Welsh MD. <Tea Omer - Last Filed: 10/25/17 23:46>
[2017-10-25] MEDS ORDERED: VALSARTAN 80 MG TABLET (UD) PO ONE (23:36)
[2017-10-25 23:40] VITALS: BP 169/85; PULSE 86
[2017-10-25] MEDS ORDERED: VALSARTAN 80 MG TABLET (UD) ONE (23:43)
--- NOTE | 2017-10-26 21:57 | EKG ---
Test Reason : Blood Pressure : / mmHG Vent. Rate : 086 BPM Atrial Rate : 086 BPM P-R Int : 178 ms QRS Dur : 092 ms QT Int : 362 ms P-R-T Axes : 057 -04 040 degrees QTc Int : 433 ms NORMAL SINUS RHYTHM NONSPECIFIC T WAVE ABNORMALITY ABNORMAL ECG WHEN COMPARED WITH ECG OF 22-JUN-2017 20:42, NO SIGNIFICANT CHANGE WAS FOUND Confirmed by NISSA HAM MD ([id number]) on 10/26/2017 9:57:06 PM Referred By: Confirmed By:NISSA HAM MD
== END 2017-10-25 23:33 | disposition home or self-care (01) ==
LOC: JER 21:32
PROC: 3E0337Z Introduction of Electrolytic and Water Balance Substance into Peripheral Vein, Percutaneous Approach (ICD-10-PCS; principal; 2017-10-25)
PROC: 3E033GC Introduction of Other Therapeutic Substance into Peripheral Vein, Percutaneous Approach (ICD-10-PCS; 2017-10-25)
DX: K21.9 Gastro-esophageal reflux disease without esophagitis (principal); R07.89 Other chest pain; I10 Essential (primary) hypertension; E78.5 Hyperlipidemia, unspecified; E11.9 Type 2 diabetes mellitus without complications; Z79.84 Long term (current) use of oral hypoglycemic drugs; I69.898 Other sequelae of other cerebrovascular disease; I69.893 Ataxia following other cerebrovascular disease; H53.8 Other visual disturbances; I48.91 Unspecified atrial fibrillation; F41.9 Anxiety disorder, unspecified; Z85.46 Personal history of malignant neoplasm of prostate
CPT/HCPCS: 36415; 71045-TC-FY; 80053; 83690; 83735; 84100; 84484; 85025; 85610; 85730; 93005; 93010; 96361; 96374; 99284-25; J7030

== ENCOUNTER 2017-12-04 07:55 | Day surgery (SDC) | payer OTHER, BC ==
[2017-12-02 16:04] VITALS: BMI 28.8
[2017-12-04] MEDS ORDERED: PROPOFOL 20 ML ONE ×2 (08:09)
[2017-12-04] MEDS ORDERED: LIDOCAINE HCL/PF 2% SDV 5ML VIAL ONE (08:09)
[2017-12-04 10:08] VITALS: TEMP 98
[2017-12-04 10:31] VITALS: BP 118/75; PULSE 74
== END 2017-12-04 12:05 | disposition home or self-care (01) ==
LOC: FASU-ENDO 07:55
PROVIDERS: ATTEND Internal Medicine Gastroenterology
PROC: 0DJD8ZZ Inspection of Lower Intestinal Tract, Via Natural or Artificial Opening Endoscopic (ICD-10-PCS; principal; 2017-12-04 09:34)
DX: Z86.010 Personal history of colon polyps (principal)
CPT/HCPCS: 82962

== ENCOUNTER 2017-12-29 23:31 | Emergency (ER) | payer OTHER, BC ==
--- NOTE | 2017-12-30 00:16 | PDOC ---
History of Present Illness - General Chief Complaint: Lightheaded Stated Complaint: DIZZY,HEADACHE,NAUSEA,HTN Time Seen by Provider: 12/30/17 00:16 - History of Present Illness Initial Comments: 12/30/17 00:41 72 year old with HTN, DM, stroke (2016), chronic bacterial sinusitis who presents with intemrittent episodes of nausea, headaches and sibjective fever ongiong for 3 days. He reports that ot doesn't feel like a stroke but he is concerned about his BP beling eleated Past History - Past Medical History Allergies/Adverse Reactions: Allergies Allergy/AdvReac Type Severity Reaction Status Date / Time No Known Allergies Allergy Verified 12/30/17 00:22 Home Medications: Ambulatory Orders Cetirizine HCl [Zyrtec -] 10 mg PO DAILY 10/17/16 Glipizide [Glipizide ER] 2.5 mg PO DAILY 10/17/16 Valsartan [Diovan] 160 mg PO DAILY 10/17/16 metFORMIN HCL [Metformin HCl] 500 mg PO DAILY 10/17/16 Ezetimibe [Zetia] 10 mg PO DAILY 06/10/17 Amlodipine Besylate [Norvasc -] 10 mg PO DAILY tablet 06/26/17 Aspirin [ASA -] 81 mg PO DAILY tab.chew 06/26/17 Metoprolol Succinate [Toprol XL -] 25 mg PO DAILY tab.sr.24h 06/26/17 Potassium Chloride [K-Dur -] 10 meq PO DAILY tablet.er 06/26/17 [place]-3 Fatty Acids [[place]-3] 1,000 mg PO DAILY 10/25/17 Anemia: No Asthma: No Cancer: Yes (PROSTATE) Cardiac Disorders: No CVA: Yes (MAR 2016, LEFT VISUAL FIELD DEFICIT) COPD: No CHF: No Dementia: No Diabetes: Yes GI Disorders: No Disorders: No HTN: Yes Hypercholesterolemia: Yes Liver Disease: No Psychiatric Problems: Yes (ANXIETY) Seizures: No Thyroid Disease: No - Surgical History Abdominal Surgery: No Appendectomy: No Cardiac Surgery: No Cholecystectomy: No Lung Surgery: No Neurologic Surgery: No Orthopedic Surgery: No - Suicide/Smoking/Psychosocial Hx Smoking Status: No Smoking History: Never smoked Have you smoked in the past 12 months: No Number of Cigarettes Smoked Daily: 0 Hx Alcohol Use: No Drug/Substance Use Hx: No Substance Use Type: None Hx Substance Use Treatment: No ED Treatment Course - LABORATORY CBC & Chemistry Diagram: 12/30/17 01:35 12/30/17 04:40 Medical Decision Making - Medical Decision Making 12/30/17 03:38 DDX including but not limited to: stroke vs HTN W/U: - TX: - Scores: ED Course: 12/30/17 04:05 Labwork largely unremarkable. Karlos has follow upw ith ENT tomorrow nad PCP on . Stable for discharge Repeat BP 165/92 *DC/Admit/Observation/Transfer Diagnosis at time of Disposition: Hypertension - Discharge Dispostion Disposition: HOME Condition at time of disposition: Stable Decision to Admit order: No - Referrals Referrals: Daniel Valera Jr [Primary Care Provider] - - Patient Instructions Printed Discharge Instructions: DI for High Blood Pressure Additional Instructions: You were seen in the ED for complaints of lightheadedness, nausea and an elevated blood pressure. In the ED you were evaluated with labwork and imaging. Your results were unremarkable and your blood pressure improved. There does not appear to be an acute need for immediate hospitalization. You are advised to follow up with your Primary Care Physician within 1 week. Please keep your upcoming appointment this week with ENT. Continue to take all your medications as directed. Remember the signs and symptoms of stroke: Face: Smile and see if one side of the face droops. Arms: Raise both arms. Does one arm drop down? Speech: Say a short phrase and check for slurred or strange speech. Time: If the answer to any of these is yes, call 911 right away and write down the time when symptoms started. Return to the ED immediately if you experience worsening lightheadedness, nausea or loss of consciousness, chest pain, shortness of breath or fever. - Post Discharge Activity Forms/Work/School Notes: Back to Work
[2017-12-30 00:29] VITALS: TEMP 98.2; BMI 31.1
[2017-12-30] MEDS ORDERED: METOCLOPRAMIDE HCL INJECTION 10 MG/2 ML VIAL IVPUSH ONE (00:41)
[2017-12-30] MEDS ORDERED: METOCLOPRAMIDE HCL INJECTION 10 MG/2 ML VIAL ONE (01:26)
[2017-12-30 01:56] LABS: BASO % 1.1 % (0-2.0); EOS % 2.3 % (0-4.5); HEMATOCRIT 50.4 % (35.4-49); HEMOGLOBIN 16.5 GM/dL (11.7-16.9); LYMPH % 26.5 % (8-40); MCH 27.4 pg (25.7-33.7); MCHC 32.7 g/dl (32.0-35.9); MEAN CELL VOLUME 83.7 fl (80-96); MEAN PLT VOLUME 8.6 fl (7.5-11.1); MONO % 11.3 % (3.8-10.2); NEUT % 58.8 % (42.8-82.8); PLATELET COUNT 321 K/MM3 (134-434); RBC 6.02 M/mm3 (4.00-5.60); RDW 14.7 % (11.9-15.9); WHITE BLOOD COUNT 7.8 K/mm3 (4.0-10.0)
[2017-12-30 02:09] LABS: INR 0.88 (0.83-1.09); PROTHROMBIN TIME (PATIENT) 10.4 SEC (9.7-13.0)
[2017-12-30 03:12] LABS: URINE APPEARANCE CLEAR; URINE BILIRUBIN NEGATIVE (<2.0 mg/dL); URINE COLOR STRAW; URINE GLUCOSE (UA) 1+ (NEGATIVE); URINE KETONE NEGATIVE (NEGATIVE); URINE LEUK ESTERASE NEGATIVE (NEGATIVE); URINE NITRITE NEGATIVE (NEGATIVE); URINE PROTEIN NEGATIVE (NEGATIVE); URINE UROBILINOGEN NEGATIVE mg/dL (0.2-1.0)
[2017-12-30 03:37] VITALS: BP 167/95; PULSE 79
--- NOTE | 2017-12-30 03:52 | PDOC ---
Attending Attestation - Resident Resident Name: Jacinta Sagastume - ED Attending Attestation I have performed the following: I have examined & evaluated the patient, The case was reviewed & discussed with the resident, I agree w/resident's findings & plan - HPI HPI: 12/30/17 03:50 [place] 72 YOM with h/o DM2, HTN, HLD, Afib not on AC, CVA, chronic sinusitis presenting with Nausea, dizziness x 3 days. Has had chronic sinusitis, recently placed on course of intranasal levaquin with some relief; has had prior courses on augmentin and keflex. eats out, no new changes in diet or fatty/salty intake. no f/c, cp, sob, weakness or paresthesias or gait instability. - Physicial Exam PE: 12/30/17 03:50 Alert, oriented to person time and place. NAD, well appearing, MMM, nl conjunctiva, anicteric; neck supple. lungs clear, RRR, abdomen soft nontender. CALLAWAY x4, CN II-XII grossly intact. Strength prox and distally 5/5 throughout. Sensation grossly intact to light touch. CALLAWAY x4. No cerebellar signs, no dysmetria, bilateral finger to nose and heel to curtis equal and symmetric. Speech clear. No peripheral edema. normal color for ethnicity, WW. 12/30/17 03:51 - Medical Decision Making 12/30/17 03:51 [place] 72 YOM with h/o DM2, HTN, HLD, Afib not on AC, CVA, chronic sinusitis presenting with Nausea, dizziness x 3 days. found to be hypertensive. DDx. hypertensive urgency vs emergency. CVA, ACS, electrolyte/metabolic derangements, renal insufficiency. VS with hypertension, normal HR and no respiratory distress. labs and lytes wnl, including Cr. UA neg for protein. CT head with old occipital infarct, no acute changes, bleed or infarction. HTN improving, no e/o end organ damage, likely related to medication use recently, will autoregulate, so no additional meds to be given and now asymptomatic, no further indication to treat. EKG nonischemic, sinus rhythm diet compliance and minimize precipitants, compliance with meds. revisit PMD and recheck clinically and BP. Pt to be discharged in stable condition. Patient and family made aware of impression and plan, return precautions discussed (including but not limited to worsening pain or symptoms), fevers, or signs of infection, chest pain, respiratory distress, inability to tolerate oral intake, dehydration, syncope, or neurologic changes). Follow up with PMD and/or specialist as recommended, follow up information provided, take medications as instructed for duration of time. continue with supportive care, avoid triggers and precipitants. All questions answered to patient's satisfaction and expressed understanding and comfort with this. 12/30/17 05:31 12/30/17 05:32 Heart Score/ECG Review - ECG Impressions Normal ECG: Yes Comment:: 12/30/17 04:32 EKG normal sinus rhythm, no interval abnormalities, narrow QRS, ST and T wave segments and morphology normal. Nonspecific T wave abnormalities
[2017-12-30 05:27] LABS: ALBUMIN 4.1 g/dl (3.4-5.0); ALK PHOS 109 U/L (45-117); ANION GAP 10 MMOL/L (8-16); BILIRUBIN,TOTAL 0.4 mg/dL (0.2-1); BLOOD UREA NITROGEN 10 mg/dL (7-18); CALCIUM 8.6 mg/dL (8.5-10.1); CHLORIDE 110 mmol/L (98-107); CO2 22 mmol/L (21-32); CREATININE 0.8 mg/dL (0.55-1.3); GLUCOSE,RANDOM 114 mg/dL (74-106); POTASSIUM 3.8 mmol/L (3.5-5.1); SGOT/AST 16 U/L (15-37); SGPT/ALT 32 U/L (13-61); SODIUM 142 mmol/L (136-145); TOT PROT 7.6 g/dl (6.4-8.2)
--- NOTE | 2017-12-30 16:14 | EKG ---
Test Reason : Blood Pressure : / mmHG Vent. Rate : 078 BPM Atrial Rate : 078 BPM P-R Int : 198 ms QRS Dur : 094 ms QT Int : 376 ms P-R-T Axes : 060 004 037 degrees QTc Int : 428 ms NORMAL SINUS RHYTHM MINIMAL VOLTAGE CRITERIA FOR LVH, MAY BE NORMAL VARIANT NONSPECIFIC T WAVE ABNORMALITY ABNORMAL ECG WHEN COMPARED WITH ECG OF 25-OCT-2017 21:49, NONSPECIFIC T WAVE ABNORMALITY NO LONGER EVIDENT IN ANTERIOR LEADS Confirmed by MD ERNA, MELINDA ([id number]) on 12/30/2017 4:14:32 PM Referred By: Confirmed By:MELINDA UMANZOR MD
== END 2017-12-30 05:50 | disposition home or self-care (01) ==
LOC: JER 23:31
PROC: 3E033GC Introduction of Other Therapeutic Substance into Peripheral Vein, Percutaneous Approach (ICD-10-PCS; principal; 2017-12-29)
DX: I10 Essential (primary) hypertension (principal); E11.9 Type 2 diabetes mellitus without complications; Z79.84 Long term (current) use of oral hypoglycemic drugs; E78.00 Pure hypercholesterolemia, unspecified; I48.91 Unspecified atrial fibrillation; F41.9 Anxiety disorder, unspecified; I69.898 Other sequelae of other cerebrovascular disease; H53.8 Other visual disturbances; Z85.46 Personal history of malignant neoplasm of prostate
CPT/HCPCS: 36415; 70450-TC; 80053; 81003; 84484; 85025; 85610; 85730; 87086; 93005; 93010; 96374; 99283-25

== ENCOUNTER 2018-01-03 11:42 | Inpatient (IN) | payer OTHER, BC ==
--- NOTE | 2018-01-03 12:15 | PDOC ---
History of Present Illness - History of Present Illness Initial Comments: 01/03/18 12:11 72 year old with HTN, DM, stroke (2016), chronic bacterial sinusitis who presents with an episode of lightheadedness and feeling as if he might pass out that occurred just prior to arrival. The patient was at lunch with a friend but had only eaten some crackers, tuna and tea the entire day. The patient told his friend to take him to the hospital because he felt that he was going to "pass out." The patient was seen at [facility] for elevated blood pressure and was discharged yesterday at 0800. <Jacinta Sagastume - Last Filed: 01/03/18 15:11> <Josefa Ahmadi - Last Filed: 01/03/18 15:43> - General Chief Complaint: Lightheaded Stated Complaint: DIZZINESS Time Seen by Provider: 01/03/18 12:02 Past History - Past Medical History Anemia: No Asthma: No Cancer: Yes (PROSTATE) Cardiac Disorders: No CVA: Yes (MAR 2016, LEFT VISUAL FIELD DEFICIT) COPD: No CHF: No Dementia: No Diabetes: Yes GI Disorders: No Disorders: No HTN: Yes Hypercholesterolemia: Yes Liver Disease: No Psychiatric Problems: Yes (ANXIETY) Seizures: No Thyroid Disease: No - Surgical History Abdominal Surgery: No Appendectomy: No Cardiac Surgery: No Cholecystectomy: No Lung Surgery: No Neurologic Surgery: No Orthopedic Surgery: No - Immunization History Immunization Up to Date: Yes - Suicide/Smoking/Psychosocial Hx Smoking Status: No Smoking History: Never smoked Have you smoked in the past 12 months: No Number of Cigarettes Smoked Daily: 0 Hx Alcohol Use: No Drug/Substance Use Hx: No Substance Use Type: None Hx Substance Use Treatment: No <Jacinta Sagastume - Last Filed: 01/03/18 15:11> <Josefa Ahmadi - Last Filed: 01/03/18 15:43> - Past Medical History Allergies/Adverse Reactions: Allergies Allergy/AdvReac Type Severity Reaction Status Date / Time No Known Allergies Allergy Verified 01/03/18 11:47 Home Medications: Ambulatory Orders Cetirizine HCl [Zyrtec -] 10 mg PO DAILY 10/17/16 Glipizide [Glipizide ER] 2.5 mg PO DAILY 10/17/16 Valsartan [Diovan] 160 mg PO DAILY 10/17/16 metFORMIN HCL [Metformin HCl] 500 mg PO DAILY 10/17/16 Ezetimibe [Zetia] 10 mg PO DAILY 06/10/17 Amlodipine Besylate [Norvasc -] 10 mg PO DAILY tablet 06/26/17 Aspirin [ASA -] 81 mg PO DAILY tab.chew 06/26/17 Potassium Chloride [K-Dur -] 10 meq PO DAILY tablet.er 06/26/17 [place]-3 Fatty Acids [[place]-3] 1,000 mg PO DAILY 10/25/17 Carvedilol [Coreg -] 6.25 mg PO BID 01/03/18 *Physical Exam - Vital Signs Last Vital Signs Temp Pulse Resp BP Pulse Ox 97.9 F 78 18 161/80 100 01/03/18 11:44 01/03/18 11:44 01/03/18 11:44 01/03/18 11:44 01/03/18 11:44 - Physical Exam Comments: 01/03/18 12:33 normal exam <Jacinta Sagastume - Last Filed: 01/03/18 15:11> - Vital Signs Last Vital Signs Temp Pulse Resp BP Pulse Ox 97.9 F 78 18 161/80 100 01/03/18 11:44 01/03/18 11:44 01/03/18 11:44 01/03/18 11:44 01/03/18 11:44 <Josefa Ahmadi - Last Filed: 01/03/18 15:43> ED Treatment Course - LABORATORY CBC & Chemistry Diagram: 01/03/18 12:48 01/03/18 12:49 <Jacinta Sagastume - Last Filed: 01/03/18 15:11> - LABORATORY CBC & Chemistry Diagram: 01/03/18 12:48 01/03/18 12:49 - ADDITIONAL ORDERS Additional order review: Laboratory Results 01/03/18 01/03/18 14:05 12:49 Sodium 139 Potassium 4.2 Chloride 106 Carbon Dioxide 24 Anion Gap 9 BUN 22 H Creatinine 1.3 Creat Clearance w eGFR 54.26 Random Glucose 123 H Calcium 9.0 Total Bilirubin 0.6 AST 18 ALT 30 Alkaline Phosphatase 104 Troponin I < 0.02 Total Protein 7.5 Albumin 4.0 Urine Color Colorless Urine Appearance Clear Urine pH 5.0 Ur Specific [place] 1.004 L Urine Protein Negative Urine Glucose (UA) Negative Urine Ketones Negative Urine Blood Negative Urine Nitrite Negative Urine Bilirubin Negative Urine Urobilinogen Negative Ur Leukocyte Esterase Negative 01/03/18 12:48 RBC 5.77 H MCV 84.4 MCHC 34.1 RDW 14.8 Neutrophils % 58.3 Lymphocytes % 28.8 Monocytes % 10.3 H Eosinophils % 1.7 Basophils % 0.9 <Josefa Ahmadi - Last Filed: 01/03/18 15:43> Medical Decision Making - Medical Decision Making 01/03/18 12:13 72 year old with HTN, DM, stroke (2016), chronic bacterial sinusitis who presents with an episode of lightheadedness and feeling as if he might pass out that occurred just prior to arrival. The patient was at lunch with a friend but had only eaten some crackers, tuna and tea the entire day. The patient told his friend to take him to the hospital because he felt that he was going to "pass out." The patient was seen at [facility] for elevated blood pressure and was discharged yesterday at 0800. DDX including but not limited to: dehydration vs electrolyte abnormality vs ACS/ arrythmia vs HTN W/U: - TX: - ED Course: Patient stable with friend at bedside. 01/03/18 13:55 Patient reassessed. states he still feels intermittently lightheaded. POC Glucose ordered Food given - will po trial him and walk him 01/03/18 15:11 Patient PO successfully. Ambulated without difficulty. Feels concerned about his lightheadedness. Desires admission. Medicine contacted. Will accept patient for observation. <Jacinta Sagastume - Last Filed: 01/03/18 15:11> *DC/Admit/Observation/Transfer - Discharge Dispostion Decision to Admit order: Yes <Jacinta Sagastume - Last Filed: 01/03/18 15:11> - Discharge Dispostion Decision to Admit order: Yes Decision to Admit order Date/Time: 01/03/18 15:43 <Josefa Ahmadi - Last Filed: 01/03/18 15:43> Diagnosis at time of Disposition: Light headedness, Near syncope - Discharge Dispostion Condition at time of disposition: Stable
[2018-01-03] MEDS: SODIUM CHLORIDE 1,000 ML IV SCH (13:09)
[2018-01-03 13:28] LABS: BASO % 0.9 % (0-2.0); EOS % 1.7 % (0-4.5); HEMATOCRIT 48.7 % (35.4-49); HEMOGLOBIN 16.6 GM/dL (11.7-16.9); LYMPH % 28.8 % (8-40); MCH 28.7 pg (25.7-33.7); MCHC 34.1 g/dl (32.0-35.9); MEAN CELL VOLUME 84.4 fl (80-96); MONO % 10.3 % (3.8-10.2); NEUT % 58.3 % (42.8-82.8); RBC 5.77 M/mm3 (4.00-5.60); RDW 14.8 % (11.9-15.9); WHITE BLOOD COUNT 10.2 K/mm3 (4.0-10.0)
--- NOTE | 2018-01-03 13:52 | PDOC ---
Attending Attestation - Resident Resident Name: Jacinta Sagastume - ED Attending Attestation I have performed the following: I have examined & evaluated the patient, The case was reviewed & discussed with the resident, I agree w/resident's findings & plan - HPI HPI: 01/03/18 15:40 [place] 72 YOM with h/o DM2, HTN, HLD, Afib not on AC, CVA, chronic sinusitis presenting with Nausea, dizziness; dcd from [facility] yesterday for HTN. today after lunch, felt near syncopal and lightheaded again. - Physicial Exam PE: 01/03/18 15:41 NAD, well appearing, PERRL, EOMI, MMM, nl conjunctiva, anicteric; neck supple. lungs clear, RRR, abdomen soft nontender. CALLAWAY x4, no focal neuro deficits. No peripheral edema. normal color for ethnicity, WWP. - Medical Decision Making 01/03/18 15:41 Vital signs reviewed, wnl. Prior notes reviewed, including admissions, discharges and consultations. laboratory results and imaging reviewed, basic labs and lytes wnl, notable for some clumping of platelets, nonspecific leukocytosis ~10K. UA_wnl Cardiac panel_neg trop EKG normal sinus rhythm, no interval abnormalities, narrow QRS, ST and T wave segments and morphology normal. Nonspecific T wave abnormalities ED course: no acute events, remained stable and well appearing. Clinically improved after interventions, including IVF, and food, however, does not feel comfortable going home with recurrent near syncope episodes. Dispo: Admit for near syncope workup. Discussed results and management plan with pt at bedside, agree with impression and plan 01/03/18 15:41 01/03/18 15:42 Heart Score/ECG Review - ECG Impressions Normal ECG: Yes Comment:: 01/03/18 13:52 EKG normal sinus rhythm, no interval abnormalities, narrow QRS, ST and T wave segments and morphology normal. Nonspecific T wave abnormalities, unchanged from prior
[2018-01-03 13:55] LABS: ALK PHOS 104 U/L (45-117); ANION GAP 9 MMOL/L (8-16); BILIRUBIN,TOTAL 0.6 mg/dL (0.2-1); BLOOD UREA NITROGEN 22 mg/dL (7-18); CHLORIDE 106 mmol/L (98-107); CO2 24 mmol/L (21-32); CREATININE 1.3 mg/dL (0.55-1.3); GLUCOSE,RANDOM 123 mg/dL (74-106); POTASSIUM 4.2 mmol/L (3.5-5.1); SGOT/AST 18 U/L (15-37); SGPT/ALT 30 U/L (13-61); SODIUM 139 mmol/L (136-145); TOT PROT 7.5 g/dl (6.4-8.2)
[2018-01-03 14:24] LABS: URINE APPEARANCE CLEAR; URINE BILIRUBIN NEGATIVE (<2.0 mg/dL); URINE COLOR COLORLESS; URINE GLUCOSE (UA) NEGATIVE (NEGATIVE); URINE KETONE NEGATIVE (NEGATIVE); URINE LEUK ESTERASE NEGATIVE (NEGATIVE); URINE NITRITE NEGATIVE (NEGATIVE); URINE PROTEIN NEGATIVE (NEGATIVE); URINE UROBILINOGEN NEGATIVE mg/dL (0.2-1.0)
--- NOTE | 2018-01-03 15:33 | HP ---
CHIEF COMPLAINT: Presyncopal event PCP: Dr. Valera HISTORY OF PRESENT ILLNESS: 72yo M with history of HTN, hemorrhagic stroke (2016; residual L visual field deficits), NIDDM, Chronic bacterial sinusitis who presents today for a presyncopal event. Pt reports being on the way to the diner to meet his friend for lunch and feeling like he was going to faint with some impending doom. He reports being at multiple emergency departments for very difficult to control blood pressure and was recently discharged from [facility] with a BP of 170/80 on a new regiment consisting of Coreg 6.25mg BID, Diovan 160mg qdaily, and Norvasc 10mg qdaily. He states the Coreg is a new addition and was recently titrated to 6.25 with this morning's dose being his second dose at the 6.25mg level. Pt denies any dizziness, diaphoresis, chest pain/discomfort, palpitations, shortness of breath, strength deficits, speech deficits, abdominal pain, f/c/n/v , and diarrhea/constipation. 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 independent in [place] 's Allergies No Known Allergies Allergy (Verified 01/03/18 11:47) HOME MEDICATIONS: Home Medications Medication Instructions Recorded Cetirizine HCl [Zyrtec -] 10 mg PO DAILY 10/17/16 Glipizide [Glipizide ER] 2.5 mg PO DAILY 10/17/16 Valsartan [Diovan] 160 mg PO DAILY 10/17/16 metFORMIN HCL [Metformin HCl] 500 mg PO DAILY 10/17/16 Ezetimibe [Zetia] 10 mg PO DAILY 06/10/17 Amlodipine Besylate [Norvasc -] 10 mg PO DAILY tablet 06/26/17 Aspirin [ASA -] 81 mg PO DAILY tab.chew 06/26/17 Potassium Chloride [K-Dur -] 10 meq PO DAILY tablet.er 06/26/17 [place]-3 Fatty Acids [[place]-3] 1,000 mg PO DAILY 10/25/17 Carvedilol [Coreg -] 6.25 mg PO BID 01/03/18 REVIEW OF SYSTEMS CONSTITUTIONAL: Absent: fever, chills, diaphoresis, generalized weakness, malaise, loss of appetite, weight change HEENT: Absent: rhinorrhea, nasal congestion, throat pain, throat swelling, difficulty swallowing, mouth swelling, ear pain, eye pain, visual changes CARDIOVASCULAR: Present: Lightheadedness Absent: chest pain, syncope, palpitations, irregular heart rate, peripheral edema RESPIRATORY: Absent: cough, shortness of breath, dyspnea with exertion, orthopnea, wheezing, stridor, hemoptysis GASTROINTESTINAL: Absent: abdominal pain, abdominal distension, nausea, vomiting, diarrhea, constipation GENITOURINARY: Absent: dysuria, frequency, urgency, hesitancy, hematuria, flank pain MUSCULOSKELETAL: Absent: myalgia, arthralgia, joint swelling, back pain, neck pain SKIN: Absent: rash, itching, pallor ENDOCRINE: Present: Fluctuating hot and cold feelings Absent: unexplained weight gain, unexplained weight loss NEUROLOGIC: Absent: headache, focal weakness or paresthesias, dizziness, unsteady gait, seizure, mental status changes, bladder or bowel incontinence PSYCHIATRIC: Absent: anxiety, depression PHYSICAL EXAMINATION Vital Signs - 24 hr 01/03/18 11:44 Temperature 97.9 F Pulse Rate 78 Respiratory 18 Rate Blood Pressure 161/80 O2 Sat by Pulse 100 Oximetry (%) GENERAL: NAD, awake, alert, and fully oriented, laying in bed. HEENT: NC/AT, EOMI, BRUCE, exophthalmos questionable, MMM NECK: No JVD, no thyromegaly, no thyroid nodules appreciated LUNGS: CTA bilaterally. No wheezes, and no crackles. No accessory muscle use. On RA HEART: RRR, normal S1 and S2 with 2/6 systolic murmur heard at the LUSB ABDOMEN: Soft, NT/ND, normoactive bowel sounds, no guarding, no rebound, no masses. No hepatomegaly MUSCULOSKELETAL: No CVA tenderness. EXTREMITIES: 2+ DP pulses, warm, well-perfused. No peripheral edema. NEUROLOGICAL: nps II-XII intact. EOMI, BRUCE, L-sided peripheral vision diminished. Strength 5/5 in all upper and lower extremity harrison. Sensation intact throughout upper and lower extremities. Normal speech. Gait not observed PSYCHIATRIC: Cooperative. Good eye contact. Appropriate mood and affect. SKIN: Warm, dry, no rashes or lesions noted Laboratory Results - last 24 hr 01/03/18 01/03/18 01/03/18 12:48 12:49 14:05 WBC 10.2 H RBC 5.77 H Hgb 16.6 Hct 48.7 MCV 84.4 MCH 28.7 MCHC 34.1 RDW 14.8 Plt Count Absolute Neuts (auto) 5.9 Neutrophils % 58.3 Lymphocytes % 28.8 Monocytes % 10.3 H Eosinophils % 1.7 Basophils % 0.9 Nucleated RBC % 0 Platelet Comment Mod plt clumping Sodium 139 Potassium 4.2 Chloride 106 Carbon Dioxide 24 Anion Gap 9 BUN 22 H Creatinine 1.3 Creat Clearance w eGFR 54.26 Random Glucose 123 H Calcium 9.0 Total Bilirubin 0.6 AST 18 ALT 30 Alkaline Phosphatase 104 Troponin I < 0.02 Total Protein 7.5 Albumin 4.0 Urine Color Colorless Urine Appearance Clear Urine pH 5.0 Ur Specific [place] 1.004 L Urine Protein Negative Urine Glucose (UA) Negative Urine Ketones Negative Urine Blood Negative Urine Nitrite Negative Urine Bilirubin Negative Urine Urobilinogen Negative Ur Leukocyte Esterase Negative ECG - NSR @ 73bpm; LAD, minimal Q-waves in I and aVL, no ST abnormalities appreciated, QTc 389ms ASSESSMENT/PLAN: Presyncope HTN NIDDM Prior hemorrhagic CVA --DDx: lack of proper nutrition/hydration vs. hypoglycemic episode vs. arrhythmia vs. sensitivity to increase in Coreg --Previous echo performed in 06/2017 showing normal LV size and function with mild to moderate MR --Previous Carotid dopplers in 06/2017 without significant stenosis --Cardiac monitoring to continue --Orthostatic VS now; s/p 1LNS so results may be negative --Consulted cardiology for holter monitor setup if needed upon discharge --Monitor BGM ACHS --Will hold Metformin and Glipizide --Glycemic control with ISS --Continue Norvasc 10mg qdaily --Continue Diovan 160mg qDaily --Continue Coreg 6.25mg qDaily --Monitor BP Medications reconciled with patient Electrolyte abnormalities: None currently Nutrition: Diabetic diet DVT PPX: SCDs both legs due to short obs stay Dispo: Place in observation Case discussed with Dr. Jackie Cardenas, DO - IM PGY-2 Visit type - Emergency Visit Emergency Visit: Yes ED Registration Date: 01/03/18 Care time: The patient presented to the Emergency Department on the above date and was hospitalized for further evaluation of their emergent condition. - New Patient This patient is new to me today: Yes Date on this admission: 01/03/18 - Critical Care Critical Care patient: No
[2018-01-03] MEDS ORDERED: INSULIN SLIDING SCALE (NOVOLOG) 1 VIAL SQ SCH (16:30)
--- NOTE | 2018-01-03 17:23 | PN ---
Teaching Attending Note Name of Resident: Terence Cardenas ATTENDING PHYSICIAN STATEMENT I saw and evaluated the patient. I reviewed the resident's note and discussed the case with the resident. I agree with the resident's findings and plan as documented. SUBJECTIVE: CC: " I felt I was gonna pass out " HPI : 72 y/o man with h/o prostat can s/p prostatectomy, DM , uncontrolled HTN, hemorrhagic stroke in 2016 with residual L sided visual field deficit, HL, and A fib ( 06/18), who presented with a feeling of presyncope. He was parking his car today when he felt as if he was gonna pass out. he did not have vertigo, he denied visual changes, weakness, numbness, tingling, palpitatins, PC , difficulty swallowing, CP, or speech abnormalities. He found his friend who transported him to ER. his sx lasted till he arrived to Er ( about 10 -15 min ) he feels back to NL at this time. he reports decreased po intake of fluids due to avoiding urination . he ate minimal breakfast this am, and took his glipizide. he did not have hypoglycemia in past. he reports uncontrolled HTN, for which he visited ER 3 times in past week, and twice he was observed over night ( in [facility]) with adjustment of his BP meds. his toprol was dc and he was placed on coreg with increasing the dose to 6.25 of note , ER visit ion 12/30 with same complaint . BP was elevated. CT was neg . in june he presneted with same sx, MRI was neg for stroke, he was found to have new onset A fib . in ER he was given 1 L of fluids OBJECTIVE: NAD , looks anxious. AAOx3. HEENT: EOMI, round equal pupils, ? exophthalmus. no facial droop. MMM. no LAP CV; RRR, no MRG Lungs: CTAB Abd: sfot, NT, ND , NL BS , no bruits heard ext : no edema , or erythema , no signs of fungal infection among toes. Neuro : EOMI, round equal pupils reactive to light. no facial droop, tongue and uvula at mid line . strength 5/5 in upper and lower extremities proximally and distally. sensation to light touch NL . nose to finger nl. visual field: L sided deficit ASSESSMENT AND PLAN: 72 y/o man with h/o prostat can s/p prostatectomy, DM ,gout, uncontrolled HTN, hemorrhagic stroke in 2016 with residual L sided visual field deficit, HL, and A fib ( 06/18), who presented with a feeling of presyncope. 1- Presyncope: unclear cause, but arrhythmias are high in DDX especially with his h/o A fib. his neuro exam is NL, unlikely has a new stroke or TIA. he had similar presentation on 12/[address] of head. transient hypoglycemia in DDx. labs might indicate volume depletion. - check orthostatic VS. - gentle hydration till am - tele for arrhythmias. - no need for echo, ast one in june with mild MR and nL EF. - check another trop - might need prolonged cardiac monitoring as out pt . will refer to card at dc 2- Uncontrolled HTN. has high anxiety level. need w/u for secondary causes as out pt. no renal artery bruits. - cont norvasc, valsartan and coreg. - might increase coreg to 12.5 in am 3- H/o hemorrhagic stroke: - cont asa. 4- observe over night .
[2018-01-03] MEDS ORDERED: SODIUM CHLORIDE 1,000 ML IV SCH (18:00)
[2018-01-03] MEDS: CARVEDILOL 6.25 MG TABLET (FP) PO SCH (21:36)
[2018-01-04 03:04] VITALS: BMI 30.4
[2018-01-04] MEDS: INSULIN SLIDING SCALE (NOVOLOG) 1 VIAL SQ SCH ×3 (06:53→18:27)
[2018-01-04 08:05] LABS: ANION GAP 8 MMOL/L (8-16); BLOOD UREA NITROGEN 13 mg/dL (7-18); CALCIUM 8.3 mg/dL (8.5-10.1); CHLORIDE 110 mmol/L (98-107); CO2 23 mmol/L (21-32); CREATININE 0.9 mg/dL (0.55-1.3); GLUCOSE,RANDOM 114 mg/dL (74-106); POTASSIUM 4.1 mmol/L (3.5-5.1); SODIUM 141 mmol/L (136-145)
[2018-01-04 08:09] LABS: BASO % 0.7 % (0-2.0); HEMOGLOBIN 15.1 GM/dL (11.7-16.9); LYMPH % 32.1 % (8-40); MCHC 34.4 g/dl (32.0-35.9); MEAN CELL VOLUME 84.4 fl (80-96); MEAN PLT VOLUME 8.6 fl (7.5-11.1); MONO % 10.8 % (3.8-10.2); NEUT % 54.4 % (42.8-82.8); PLATELET COUNT 269 K/MM3 (134-434); RBC 5.21 M/mm3 (4.00-5.60); RDW 14.9 % (11.9-15.9); WHITE BLOOD COUNT 6.1 K/mm3 (4.0-10.0)
[2018-01-04] MEDS ORDERED: ASPIRIN 81 MG CHEWABLE TABLETS PO SCH (10:00)
--- NOTE | 2018-01-04 10:54 | PN ---
Progress Note (short form) - Note Progress Note: Subjective: events over night noted for bradycardia , patient had no sx . now he denies palpitations , pain , dizziness or SOB Objective: Vital Signs: Last Vital Signs Temp Pulse Resp BP Pulse Ox 97.8 F 78 18 155/98 99 01/04/18 01:00 EST 01/04/18 10:03 01/04/18 10:03 01/04/18 10:03 01/03/18 22 :05 Laboratory Results - last 24 hr 01/03/18 01/03/18 01/03/18 12:48 12:49 14:05 WBC 10.2 H RBC 5.77 H Hgb 16.6 Hct 48.7 MCV 84.4 MCH 28.7 MCHC 34.1 RDW 14.8 Plt Count MPV Absolute Neuts (auto) 5.9 Neutrophils % 58.3 Lymphocytes % 28.8 Monocytes % 10.3 H Eosinophils % 1.7 Basophils % 0.9 Nucleated RBC % 0 Platelet Comment Mod plt clumping Sodium 139 Potassium 4.2 Chloride 106 Carbon Dioxide 24 Anion Gap 9 BUN 22 H Creatinine 1.3 Creat Clearance w eGFR 54.26 POC Glucometer Random Glucose 123 H Hemoglobin A1c % Calcium 9.0 Total Bilirubin 0.6 AST 18 ALT 30 Alkaline Phosphatase 104 Troponin I < 0.02 Total Protein 7.5 Albumin 4.0 Urine Color Colorless Urine Appearance Clear Urine pH 5.0 Ur Specific [place] 1.004 L Urine Protein Negative Urine Glucose (UA) Negative Urine Ketones Negative Urine Blood Negative Urine Nitrite Negative Urine Bilirubin Negative Urine Urobilinogen Negative Ur Leukocyte Esterase Negative 01/03/18 01/04/18 01/04/18 17:11 05:30 05:30 WBC RBC Hgb Hct MCV MCH MCHC RDW Plt Count MPV Absolute Neuts (auto) Neutrophils % Lymphocytes % Monocytes % Eosinophils % Basophils % Nucleated RBC % Platelet Comment Sodium 141 Potassium 4.1 Chloride 110 H Carbon Dioxide 23 Anion Gap 8 BUN 13 Creatinine 0.9 Creat Clearance w eGFR > 60 POC Glucometer 137.88968 Random Glucose 114 H Hemoglobin A1c % 6.9 H Calcium 8.3 L Total Bilirubin AST ALT Alkaline Phosphatase Troponin I Total Protein Albumin Urine Color Urine Appearance Urine pH Ur Specific [place] Urine Protein Urine Glucose (UA) Urine Ketones Urine Blood Urine Nitrite Urine Bilirubin Urine Urobilinogen Ur Leukocyte Esterase 01/04/18 01/04/18 05:30 06:52 WBC 6.1 RBC 5.21 Hgb 15.1 Hct 44.0 MCV 84.4 MCH 29.0 MCHC 34.4 RDW 14.9 Plt Count 269 MPV 8.6 Absolute Neuts (auto) 3.3 Neutrophils % 54.4 Lymphocytes % 32.1 Monocytes % 10.8 H Eosinophils % 2.0 Basophils % 0.7 Nucleated RBC % 0 Platelet Comment Sodium Potassium Chloride Carbon Dioxide Anion Gap BUN Creatinine Creat Clearance w eGFR POC Glucometer 118 Random Glucose Hemoglobin A1c % Calcium Total Bilirubin AST ALT Alkaline Phosphatase Troponin I Total Protein Albumin Urine Color Urine Appearance Urine pH Ur Specific [place] Urine Protein Urine Glucose (UA) Urine Ketones Urine Blood Urine Nitrite Urine Bilirubin Urine Urobilinogen Ur Leukocyte Esterase Physical Exam: NAD CV; RRR, no MRG Lungs: CTAB ext : no edema , or erythema ASSESSMENT AND PLAN: 72 y/o man with h/o prostat can s/p prostatectomy, DM ,gout, uncontrolled HTN, hemorrhagic stroke in 2016 with residual L sided visual field deficit, HL, and A fib ( 06/18), who presented with a feeling of presyncope. 1- Presyncope: suspect from high degree AV block . - cont monitor . hold coreg 2- 2nd degree AV block on monitor last night. 1st degree as well. EKG done last night not in chart. - suspect block is due to BB ( only new medication was added and increased ) . - dc coreg. - will ask card to evaluate, as he needs BP control and at same time has A fib, and need some degree of AV leigh blockage. 2- Uncontrolled HTN. has high anxiety level. need w/u for secondary causes as out pt. no renal artery bruits. - cont norvasc, valsartan and hold coreg for now. - await further card rec on whether to increase valsartan or low dose BB 3- H/o hemorrhagic stroke: - cont asa. 4- P Afib: - coreg as above - cont asa . - was taken off his AC as out pt. has h/o hemorrhagic stroke HLOC Visit type - Emergency Visit Emergency Visit: Yes ED Registration Date: 01/03/18 Care time: The patient presented to the Emergency Department on the above date and was hospitalized for further evaluation of their emergent condition. - New Patient This patient is new to me today: No - Critical Care Critical Care patient: No
--- NOTE | 2018-01-04 11:46 | EKG ---
Test Reason : Blood Pressure : / mmHG Vent. Rate : 073 BPM Atrial Rate : 073 BPM P-R Int : 190 ms QRS Dur : 090 ms QT Int : 362 ms P-R-T Axes : 054 -02 024 degrees QTc Int : 398 ms NORMAL SINUS RHYTHM MINIMAL VOLTAGE CRITERIA FOR LVH, MAY BE NORMAL VARIANT NONSPECIFIC T WAVE ABNORMALITY ABNORMAL ECG WHEN COMPARED WITH ECG OF 30-DEC-2017 03:17, NO SIGNIFICANT CHANGE WAS FOUND Confirmed by CHARLETTE CUNNINGHAM MD ([id number]) on 01/04/2018 11:46:04 AM Referred By: Confirmed By:CHARLETTE CUNNINGHAM MD
[2018-01-04] MEDS: VALSARTAN 160 MG TABLET (UD) PO SCH (11:59)
[2018-01-04] MEDS: EZETIMIBE 10 MG TABLET (FP) PO SCH (11:59)
[2018-01-04] MEDS: POTASSIUM CHLORIDE TABS 10 MEQ TABLET.ER (FP) PO SCH (11:59)
[2018-01-04] MEDS: amLODIPine BESYLATE 10 MG TABLET (FP) PO SCH (11:59)
[2018-01-04] MEDS: CARVEDILOL 6.25 MG TABLET (FP) PO SCH ×3 (12:01→21:30)
--- NOTE | 2018-01-04 13:48 | CON.CARD ---
Consult Consult Specialty:: Cardiology Referred by:: Hospitalist Medicine Reason for Consultation:: Near syncope - History of Present Illness Chief Complaint: Near syncope History of Present Illness: HPI : 72 y/o man with h/o prostat can s/p prostatectomy, DM , uncontrolled HTN, hemorrhagic stroke in 2016 with residual L sided visual field deficit, HL, and paroxysmal A fib ( 06/18), chronic sinusitis who presented with a feeling of presyncope, blurry vision without true syncope since resolved, overnight bradyarrhythmia overnight on telemetry, denies chest pain, dyspnea, palpitations , orthopnea, PND or LE edema. Patient has had multiple visits to emergency rooms recently for elevated BP. His blood pressure had previously been well- controlled until recent medication changes were implemented. - History Source History Provided By: Patient Limitations to Obtaining History: No Limitations - Past Medical History Cardio/Vascular: Yes: HTN, Hyperlipdemia Rheumatology: Yes: Gout Endocrine: Yes: Diabetes Mellitus - Past Surgical History Past Surgical History: Yes: Prostatectomy - Alcohol/Substance Use Hx Alcohol Use: No - Smoking History Smoking history: Never smoked Have you smoked in the past 12 months: No Aproximately how many cigarettes per day: 0 Home Medications - Allergies Allergies/Adverse Reactions: Allergies Allergy/AdvReac Type Severity Reaction Status Date / Time No Known Allergies Allergy Verified 01/03/18 11:47 - Home Medications Home Medications: Ambulatory Orders Cetirizine HCl [Zyrtec -] 10 mg PO DAILY 10/17/16 Glipizide [Glipizide ER] 2.5 mg PO DAILY 10/17/16 Valsartan [Diovan] 160 mg PO DAILY 10/17/16 metFORMIN HCL [Metformin HCl] 500 mg PO DAILY 10/17/16 Ezetimibe [Zetia] 10 mg PO DAILY 06/10/17 Amlodipine Besylate [Norvasc -] 10 mg PO DAILY tablet 06/26/17 Aspirin [ASA -] 81 mg PO DAILY tab.chew 06/26/17 Potassium Chloride [K-Dur -] 10 meq PO DAILY tablet.er 06/26/17 [place]-3 Fatty Acids [[place]-3] 1,000 mg PO DAILY 10/25/17 Carvedilol [Coreg -] 6.25 mg PO BID 01/03/18 Family Disease History - Family Disease History Family History: Denies Review of Systems - Review of Systems Eyes: reports: Blurred Vision HENT: reports: Ringing in Ears Cardiovascular: reports: No Symptoms Respiratory: reports: No Symptoms Gastrointestinal: reports: Nausea Genitourinary: reports: No Symptoms Neurological: reports: Dizziness Vital Signs: Vital Signs Temperature 97.8 F 01/04/18 01:00 EST Pulse Rate 78 01/04/18 10:03 Respiratory Rate 18 01/04/18 10:03 Blood Pressure 155/98 01/04/18 10:03 O2 Sat by Pulse Oximetry (%) 99 01/03/18 22:05 Constitutional: Yes: No Distress, Calm Neck: Yes: Supple Respiratory: Yes: Regular, CTA Bilaterally Gastrointestinal: Yes: Normal Bowel Sounds, Soft Cardiovascular: Yes: Regular Rate and Rhythm JVD: No Carotid Bruit: No Heart Sounds: Yes: S1, S2 Edema: No - Other Data Labs, Other Data: CBC, BMP 01/04/18 05:30 01/04/18 05:30 NSR @ 73 servando criteria LVH nonspec T wave changes Ejection Fraction %: LVEF > or = 40 % Imaging - Results Chest X-ray: Report Reviewed (NAD) Cat Scan: Report Reviewed (Chronic old right occpital stroke) Problem List - Problems (1) Chronic sinusitis Code(s): J32.9 - CHRONIC SINUSITIS, UNSPECIFIED Qualifiers: Sinusitis location: unspecified location Qualified Code(s): J32.9 - Chronic sinusitis, unspecified (2) Near syncope Code(s): R55 - SYNCOPE AND COLLAPSE (3) Atrial fibrillation Code(s): I48.91 - UNSPECIFIED ATRIAL FIBRILLATION Qualifiers: Atrial fibrillation type: paroxysmal Qualified Code(s): I48.0 - Paroxysmal atrial fibrillation (4) Cerebrovascular accident (CVA) Code(s): I63.9 - CEREBRAL INFARCTION, UNSPECIFIED Qualifiers: Precerebral and cerebral artery: posterior cerebral artery Laterality of affected vessel: right (5) Diabetes mellitus Code(s): E11.9 - TYPE 2 DIABETES MELLITUS WITHOUT COMPLICATIONS Qualifiers: Diabetes mellitus type: type 2 (6) Hypercholesterolemia Code(s): E78.00 - PURE HYPERCHOLESTEROLEMIA, UNSPECIFIED (7) Hypertension Code(s): I10 - ESSENTIAL (PRIMARY) HYPERTENSION Qualifiers: Hypertension type: essential hypertension Qualified Code(s): I10 - Essential (primary) hypertension (8) Vertigo Code(s): R42 - DIZZINESS AND GIDDINESS Assessment/Plan 06/11/2017 Transthoracic echocardiography revealed normal left ventricular systolic function, mild to moderate MR 1. Paroxysmal atrial fibrillation currently sinus rhythm [id number] score at least 5-6 not on a/c due to h/o hemorrhagic stroke 2. Hypertension 3. Hypercholesterolemia 4. Type 2 diabetes mellitus 5. CVA with visual deficit 6. History of gout 7. Prostate CA s/p prostatectomy 8. Chronic sinusitis PLAN: 1. Eliquis was d/salvatore and ASA 81 qd started as outpatient due to h/o hemorrhagic stroke, ideally should resume Eliquis as bleeding risk is same for both 2. Continue Diovan 160 qd, Zetia 10 qd, Norvasc 10 qd, cavedilol 6.25 bid, add statin therapy to Zetia 3. Continue telemetry monitoring 4. Thank you for consultative opportunity
[2018-01-04] MEDS: SODIUM CHLORIDE 1,000 ML IV SCH (18:27)
[2018-01-05] MEDS ORDERED: ACETAMINOPHEN 1000 MG/100 ML VIAL (NON FORMULARY) IVPB ONE (02:10)
[2018-01-05] MEDS: INSULIN SLIDING SCALE (NOVOLOG) 1 VIAL SQ SCH ×3 (06:28→17:51)
--- NOTE | 2018-01-05 10:15 | PN ---
Progress Note, Physician History of Present Illness: Reports positional dizziness, overnight telemetry showed blocked PAC, no recurrent syncope. - Current Medication List Current Medications: Active Medications Amlodipine Besylate (Norvasc -) 10 mg PO DAILY [facility] Last Admin: 01/04/18 11:59 Dose: 10 mg Aspirin (Asa -) 81 mg PO DAILY [facility] Last Admin: 01/04/18 11:59 Dose: 81 mg Carvedilol (Coreg -) 6.25 mg PO BID [facility] Last Admin: 01/04/18 21:30 Dose: Not Given Ezetimibe (Zetia -) 10 mg PO DAILY [facility] Last Admin: 01/04/18 11:59 Dose: 10 mg Sodium Chloride (Normal Saline -) 1,000 mls @ 0 mls/hr IV ASDIR [facility] Last Admin: 01/04/18 18:27 Dose: Not Given Insulin Aspart (Novolog Vial Sliding Scale -) 1 vial SQ TIDAC [facility]; Protocol Last Admin: 01/05/18 06:28 Dose: Not Given Potassium Chloride (K-Dur -) 10 meq PO DAILY [facility] Last Admin: 01/04/18 11:59 Dose: 10 meq Valsartan (Diovan -) 160 mg PO DAILY [facility] Last Admin: 01/04/18 11:59 Dose: 160 mg - Objective Vital Signs: Vital Signs Temperature 98.3 F 01/05/18 06:00 Pulse Rate 82 01/05/18 09:25 Respiratory Rate 18 01/05/18 09:25 Blood Pressure 160/88 01/05/18 09:25 O2 Sat by Pulse Oximetry (%) 98 01/04/18 21:00 Constitutional: Yes: No Distress, Calm Neck: Yes: Supple Cardiovascular: Yes: Regular Rate and Rhythm Respiratory: Yes: Regular, CTA Bilaterally Gastrointestinal: Yes: Normal Bowel Sounds, Soft Edema: No Labs: CBC, BMP 01/04/18 05:30 01/04/18 05:30 Problem List - Problems (1) Chronic sinusitis Code(s): J32.9 - CHRONIC SINUSITIS, UNSPECIFIED Qualifiers: Sinusitis location: unspecified location Qualified Code(s): J32.9 - Chronic sinusitis, unspecified (2) Near syncope Code(s): R55 - SYNCOPE AND COLLAPSE (3) Atrial fibrillation Code(s): I48.91 - UNSPECIFIED ATRIAL FIBRILLATION Qualifiers: Atrial fibrillation type: paroxysmal Qualified Code(s): I48.0 - Paroxysmal atrial fibrillation (4) Cerebrovascular accident (CVA) Code(s): I63.9 - CEREBRAL INFARCTION, UNSPECIFIED Qualifiers: Precerebral and cerebral artery: posterior cerebral artery Laterality of affected vessel: right (5) Diabetes mellitus Code(s): E11.9 - TYPE 2 DIABETES MELLITUS WITHOUT COMPLICATIONS Qualifiers: Diabetes mellitus type: type 2 (6) Hypercholesterolemia Code(s): E78.00 - PURE HYPERCHOLESTEROLEMIA, UNSPECIFIED (7) Hypertension Code(s): I10 - ESSENTIAL (PRIMARY) HYPERTENSION Qualifiers: Hypertension type: essential hypertension Qualified Code(s): I10 - Essential (primary) hypertension (8) Vertigo Code(s): R42 - DIZZINESS AND GIDDINESS Assessment/Plan 06/11/2017 Transthoracic echocardiography revealed normal left ventricular systolic function, mild to moderate MR 1. Near syncope suspect neurocardiogenic etiology, r/o significant nocturnal pause 2. Paroxysmal atrial fibrillation currently sinus rhythm [id number] score at least 5-6 not on a/c due to h/o hemorrhagic stroke 3. Hypertension 4. Hypercholesterolemia 5. Type 2 diabetes mellitus 6. CVA with visual deficit 7. History of gout 8. Prostate CA s/p prostatectomy 9. Chronic sinusitis PLAN: 1. Eliquis was d/salvatore and ASA 81 qd started as outpatient due to h/o hemorrhagic stroke, ideally should resume Eliquis as bleeding risk is same for both 2. Continue Diovan 160 qd, Zetia 10 qd, Norvasc 10 qd, cavedilol decrease 6.25 qAM, add statin therapy to Zetia 10 qd 3. ETT to confirm chronotropic competence given 4.6 sec pause 2 nights ago, decrease carvedilol 6.25 qAM. 4. Counselled on abortive maneuvers once prodromal sxs have been experienced
[2018-01-05] MEDS ORDERED: APIXABAN 5 MG TABLET PO SCH (11:00)
[2018-01-05] MEDS: POTASSIUM CHLORIDE TABS 10 MEQ TABLET.ER (FP) PO SCH (11:23)
[2018-01-05] MEDS: EZETIMIBE 10 MG TABLET (FP) PO SCH (11:23)
[2018-01-05] MEDS: amLODIPine BESYLATE 10 MG TABLET (FP) PO SCH (11:24)
[2018-01-05] MEDS: CARVEDILOL 6.25 MG TABLET (FP) PO SCH (11:24)
[2018-01-05] MEDS: VALSARTAN 160 MG TABLET (UD) PO SCH (11:24)
--- NOTE | 2018-01-05 12:27 | PN ---
Teaching Attending Note Name of Resident: Edson Canela ATTENDING PHYSICIAN STATEMENT I saw and evaluated the patient. I reviewed the resident's note and discussed the case with the resident. I agree with the resident's findings and plan as documented. SUBJECTIVE: No fever or chills . No abd pain , no PC , no light headedness or dizziness last night. no cp , no plapitations OBJECTIVE: NAD CV; RRR, no MRG Lungs: CTAB ext : no edema , or erythema ASSESSMENT AND PLAN: 72 y/o man with h/o prostate cancer s/p prostatectomy, DM ,gout, uncontrolled HTN, hemorrhagic stroke in 2016 with residual L sided visual field deficit, HL, and A fib ( 06/18), who presented with a feeling of presyncope. 1- Presyncope: not clear if heart block is responsible, but it did not occur during the day on BB . D/W Dr. Quiñonez, likely night time blocks are due to CAROLINE rather than BB. 2- 2nd degree AV block : tele with 2 brief episodes of 2nd degree last night with no sx - Treadmill testing today - cont decreased core dosing - await further card Recs 2- Uncontrolled HTN. improved - cont norvasc, valsartan and coreg 3- H/o hemorrhagic stroke: 4- P Afib: - coreg as above - dc aspirin and start eliquis 5 BID 5- DM : SSI for now dispo plan depends on stress test results and further w/u per card. possible dc later today
--- NOTE | 2018-01-05 14:42 | TRE ---
Protocol Name : YUE Max Work Load (METS*10) : 77 Time In Exercise Phase : 00:06:30 Max. Systolic BP : 182 mmHg Max Diastolic BP : 94 mmHg Max Heart Rate : 155 BPM Max Predicted Heart Rate : 148 BPM Attending Physician : DR. PAYNE Reason For Termination : Target Heart Rate Achieved Reason for Test : CONFIRM CHRONOTROPIC CONPETER Stress Protocol : YUE Rest HR : 97 BPM PeakEx METs : 7.7 METS Arrhythmias : No Arrhythmias Resting ECG : Normal Recovery ECG Response (OLD) : Overall Impression : Normal stress test Chest Pain : No Chest Pain HR Response To Exercise : Normal Overall HR Response To Exercise BP Response To Exercise : Normal Resting BP with Appropriate Response Functional Capacity : Normal Diagnosis : 1. NEGATIVE STRESS TEST 2. APPROPRIATE BLOOD PRESSURE RESPONSE 3. FAIR EXERCISE TOLERANCE AND CAPACITY. PATIENT EXERCISED 6 MIN 30 SEC INTO STAGE 3 YUE PROTOCOL AND ACHIEVED 104% OF MPTHR 4. NO SIGNIFICANT ECG ABNORMALITIES Confirmed by SANDEEP PAYNE MD ([id number]) on 01/05/2018 2:41:56 PM
[2018-01-05 15:12] VITALS: BP 145/90; PULSE 81; TEMP 97.7
--- NOTE | 2018-01-05 18:25 | DS ---
Physical Exam: SUBJECTIVE: Patient seen and examined. No acute events overnight. Pt. complained of intermittent dizziness and chronic sinus headaches. OBJECTIVE: Vital Signs Period Temp Pulse Resp BP Sys/Rivera Pulse Ox Last 24 Hr 97.7 F-98.3 F 69-82 18-20 136-160/74-90 98 PHYSICAL EXAM GENERAL: The patient is awake, alert, and fully oriented, in no acute distress. EYES: PERRL, extraocular movements intact, sclera anicteric, conjunctiva clear, proptosis. ENT: Moist mucous membranes. LUNGS: Breath sounds equal, clear to auscultation bilaterally, no wheezes, no crackles, no accessory muscle use. HEART: Regular rate and rhythm, S1, S2 without murmur, rub or gallop. ABDOMEN: Soft, obese, nontender, nondistended, normoactive bowel sounds, no guarding, no rebound EXTREMITIES: 2+ dorsal pedal pulses, no calf tenderness, warm, well-perfused, no edema. NEUROLOGICAL: Normal speech, gait not observed. PSYCH: Anxious SKIN: Warm, dry, normal turgor LABS Laboratory Results - last 24 hr 01/04/18 01/05/18 01/05/18 21:35 05:25 11:12 POC Glucometer 105 126 121 HOSPITAL COURSE: Date of Admission:01/04/18 Date of Discharge: 01/05/18 Pt. admitted for presyncopal episode. EKG showed NSR. Treadmill stress test showed no abnormalities. Pt.'s medications were adjusted as detailed below. Cardiology followup recommended for further management of medications and presyncopal workup. Pt.'s comorbidities managed with home medications. Hospital course discussed with and agreed upon with Pt. and hospital staff. Minutes to complete discharge: 45 Discharge Summary Reason For Visit: LIGHTHEADEDNESS Current Active Problems Atrial fibrillation (Acute) Dizziness (Acute) First degree AV block (Acute) Hypercholesterolemia (Acute) Hypertensive urgency (Acute) Light headedness (Acute) Near syncope (Acute) Second degree AV block (Acute) Chronic sinusitis (Chronic) Diabetes mellitus (Chronic) HTN (hypertension) (Chronic) Condition: Improved - Instructions Diet, Activity, Other Instructions: You were admitted for feelings of lightheadedness and an abnormal ECG showing. You were evaluated with EKG which shwed a 1st degree heart block. You had a stress test which showed a normal EKG and normal heart function We adjusted your medications. Please take as prescribed We have decreased your Carvedilol to 6.25mg ONCE a DAY. Please take as prescibed , at the same time every day. We have started you on a cholesterol medication, Lipitor Please take Lipitor 10mg ONCE a DAY in the evening. We have discontinued your Aspirin and replaced it with Eliquis. We have started you on new blood thinner, Eliquis 5 mg TWICE a DAY. Please take one 5mg pill once in the morning and once in the evening, at the same time everyday. This new medication will make it easier for you to bleed. Please avoid bumping into objects or falling down as this can cause bleeding. Please look out of new bruises that develop and for increasing size of these bruises. Please look out for joints that increase in size and return to the ED if you notice these symptoms. Please check your gum and teeth every morning and check for sign of bleeding. Please follow up with your Primary Care Physician( Dr. Schuler) in 1 week. Please follow up with our Cracking Machine Operator (Dr. Quiñonez) or your crane follower Dr. Colten Butterfield within 1 week. Please return to the ED if you experience bleeding that won't stop, increased dizziness, loss of vision, headache that wont go away, muscle aches that won't go away or any concerning symptoms that develop that you have immediate questions about. Referrals: Arslan Quiñonez MD [Staff Physician] - 1 Week Disposition: HOME - Home Medications Comprehensive Discharge Medication List: Ambulatory Orders Cetirizine HCl [Zyrtec -] 10 mg PO DAILY 10/17/16 Glipizide [Glipizide ER] 2.5 mg PO DAILY 10/17/16 Valsartan [Diovan] 160 mg PO DAILY 10/17/16 metFORMIN HCL [Metformin HCl] 500 mg PO DAILY 10/17/16 Ezetimibe [Zetia] 10 mg PO DAILY 06/10/17 Amlodipine Besylate [Norvasc -] 10 mg PO DAILY tablet 06/26/17 [place]-3 Fatty Acids [[place]-3] 1,000 mg PO DAILY 10/25/17 Apixaban [Eliquis -] 5 mg PO BID #60 tablet 01/05/18 Atorvastatin Ca [Lipitor] 10 mg PO HS #30 tablet 01/05/18 Carvedilol [Coreg -] 6.25 mg PO DAILY #30 tablet 01/05/18 This patient is new to me today: No Emergency Visit: Yes ED Registration Date: 01/04/18 Care time: The patient presented to the Emergency Department on the above date and was hospitalized for further evaluation of their emergent condition. Critical Care patient: No - Discharge Referral Referred to [facility] Med [facility] No
[2018-01-05] MEDS ORDERED: ATORVASTATIN CA 10 MG TABLET (FP) PO SCH (22:00)
[2018-01-06] MEDS ORDERED: CARVEDILOL 6.25 MG TABLET (FP) PO SCH (10:00)
== END 2018-01-05 18:48 | disposition home or self-care (01) | DRG 312 ==
LOC: JER 11:42 → JERBED 15:05 → J4W 20:21 → OBSVTOIN 01-04 11:00
PROVIDERS: ADMIT Internal Medicine; ATTEND Internal Medicine
DX: R55 Syncope and collapse (principal); I44.1 Atrioventricular block, second degree; I48.0 Paroxysmal atrial fibrillation; Z86.73 Personal history of transient ischemic attack (TIA), and cerebral infarction without residual deficits; E11.9 Type 2 diabetes mellitus without complications; I10 Essential (primary) hypertension; Z79.84 Long term (current) use of oral hypoglycemic drugs; Z85.46 Personal history of malignant neoplasm of prostate; J32.9 Chronic sinusitis, unspecified; E78.00 Pure hypercholesterolemia, unspecified; I34.0 Nonrheumatic mitral (valve) insufficiency; M10.9 Gout, unspecified
CPT/HCPCS: 36415; 71045-TC-FY; 80048; 80053; 81003; 82962; 83036; 84484; 85025; 93005; 93010; 93017; 93018; 99285-25; G0378; J0131; J7030

== ENCOUNTER 2018-10-08 00:12 | Emergency (ER) | payer OTHER, BC | END 2018-10-08 02:28 | disposition home or self-care (01) | LOC: FER 00:12 ==

== ENCOUNTER 2019-03-20 22:05 | Emergency (ER) | payer OTHER, BC ==
--- NOTE | 2019-03-20 22:09 | PDOC ---
History of Present Illness - General Chief Complaint: Weakness Stated Complaint: FEELING FAINT Time Seen by Provider: 03/20/19 22:06 History Source: Patient, EMS Exam Limitations: No Limitations - History of Present Illness Initial Comments: 03/20/19 22:08 HISTORY OF PRESENT ILLNESS: 73yo M with history of HTN, hemorrhagic stroke (2016; residual L visual field deficits), NIDDM, Afib not on AC, Chronic bacterial sinusitis, chronic headache/ cluster headache who presents today by EMS for dizziness/lightheadedness [employer]. he has chronic generalized headaches x 1 year, neurologist is Dr Reilly; he saw his neurologist 1 week ago, he was recently rx'd THC sprays for cluster headache management about 1 week ago, took one dose today at 530p and then again at 730p and after about 20 minutes he felt dizzy/faint and generalized weakness. he describes his chronic headache as generalized, nonradiating and as "burning" currently 7/10 and improving since his THC sprays. his cluster headaches can occur sporadically, when it used to occur at a regular time frame at 7pm. denies any particular triggers. has also seen ENT for chronic sinusitis otherwise unremarkable workup. +chronic left ear ache, nasal conogestion, nausea. +nasal congestion x 3 days. also took sudafed this evening with some relief. Denies fever, chills, chest pain, visual or hearing disturbances, SOB, cough, palpitation, V, D, abdominal pain, bladder and bowel problems, focal weakness/ paresthesias, leg swelling/pain, rash. 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 Valera Neurologist: Dr Castillo 03/20/19 23:12 Past History - Past Medical History Allergies/Adverse Reactions: Allergies Allergy/AdvReac Type Severity Reaction Status Date / Time No Known Allergies Allergy Verified 01/03/18 11:47 Home Medications: Ambulatory Orders Cetirizine HCl [Zyrtec -] 10 mg PO DAILY 10/17/16 Glipizide [Glipizide ER] 2.5 mg PO DAILY 10/17/16 Valsartan [Diovan] 160 mg PO DAILY 10/17/16 metFORMIN HCL [Metformin HCl] 500 mg PO DAILY 10/17/16 Ezetimibe [Zetia] 10 mg PO DAILY 06/10/17 Amlodipine Besylate [Norvasc -] 10 mg PO DAILY tablet 06/26/17 Aspirin [Aspirin EC] 81 mg PO DAILY 10/08/18 Carvedilol [Coreg -] 12.5 mg PO BID 10/08/18 Hydrochlorothiazide 25 mg PO DAILY 10/08/18 Pitavastatin Calcium [Livalo] 2 mg PO DAILY 10/08/18 Potassium Chloride [K-Dur -] 20 meq PO DAILY 10/08/18 Anemia: No Asthma: No Cancer: Yes (PROSTATE) Cardiac Disorders: No CVA: Yes (MAR 2016, LEFT VISUAL FIELD DEFICIT) COPD: No CHF: No Dementia: No Diabetes: Yes GI Disorders: No Disorders: No HTN: Yes Hypercholesterolemia: Yes Liver Disease: No Psychiatric Problems: Yes (ANXIETY) Seizures: No Thyroid Disease: No - Surgical History Abdominal Surgery: No Appendectomy: No Cardiac Surgery: No Cholecystectomy: No Lung Surgery: No Neurologic Surgery: No Orthopedic Surgery: No - Immunization History Immunization Up to Date: Yes - Psycho Social/Smoking Cessation Hx Smoking Status: No Smoking History: Unknown if ever smoked Have you smoked in the past 12 months: No Number of Cigarettes Smoked Daily: 0 Hx Alcohol Use: No Drug/Substance Use Hx: No Substance Use Type: None Hx Substance Use Treatment: No Review of Systems - Review of Systems Able to Perform ROS?: Yes Comments:: 03/20/19 22:24 Review of systems Constitutional: no fevers or chills. +generalized weakness HEENT: +headache or dizziness. +congestion. +left ear ache, No visual/hearing disturbances. no visual loss. no sore throat. no eye pain, no neck pain. CVS: no cp or syncope. Resp: no sob. No cough. Gastrointestinal: no abdominal pain, vomiting, diarrhea. +nausea MUSCULOSKELETAL: No joint pain and swelling. No neck or back pain. SKIN: no redness or skin changes, no discharge, no rash. No wounds. Hematologic: no easy bruising/bleeding. NEUROLOGIC: + headache, dizziness, No LOC or altered mental status. No focal weakness, numbness or tingling. Psych: no anxiety or depression Allergic/Immunologic: no allergies All other systems reviewed and negative, or as documented in HPI. *Physical Exam - Physical Exam 03/20/19 22:25 Physical exam General: Well appearing, awake and alert, NAD. HEENT: NCAT, PERRL, EOMI, clear conjunctiva, anicteric, moist mucus membranes, oropharynx clear. Airway patent, normal phonation. Uvula midline. no tonsillar hypertrophy. No sinus tenderness, TM clear, no pinna tenderness to manipulation. Neck: neck supple, FROM Resp: CTAB, normal and even respirations, no respiratory distress CVS: RRR, no murmurs, 2+ peripheral pulses throughout, no peripheral edema Abdomen: soft, NTND, no rebound or guarding. Back: nontender, normal inspection and ROM MSK: no edema, CALLAWAY x4, ROM intact. No clubbing or cyanosis. normal bulk and tone. Extremities: no calf tenderness Neuro: Alert, oriented to person time and place. CN II-XII grossly intact. Strength prox and distally 5/5 throughout. Sensation grossly intact to light touch. CALLAWAY x4. No cerebellar signs, no dysmetria, bilateral finger to nose and heel to curtis equal and symmetric. Speech clear. Psych: Calm and cooperative Skin: warm and well perfused, cap refill <2 sec, normal color, no rash or skin discoloration. Heart Score/ECG Review #1 ECG reviewed & interpreted by me at: 22:45 General ECG Interpretation: Sinus Rhythm, Normal Rate, Normal Intervals Compared to previous ECG there are: No significant change 03/20/19 23:00 EKG normal sinus rhythm 60 bpm, no interval abnormalities, narrow QRS, ST and T wave segments and morphology normal. Nonspecific T wave abnormalities unchanged from previous ED Treatment Course - LABORATORY CBC & Chemistry Diagram: 03/20/19 22:45 03/20/19 22:45 Medical Decision Making - Medical Decision Making 03/20/19 22:26 vitals wnl, reassuring no focal neuro deficits, doubt CVA or [employer] lesion has neurologist and workup done, endorses chronic cluster headaches x 1 year typical of his sx no sx to suggest CVA, no imaging indicated. pt only with residual left visual field loss, but otherwise intact. gait stable labs and lytes, trop, EKG analgesia with reglan tylenol and IVF, reassess 03/20/19 23:13 potassium mildly low 3.3, repleted with oral potassium tab trop neg, reassuring, ECG sinus rhythm no cp or sob, doubt cardiac remainder of labs/lytes wnl. on reassessment, headache improved, given IVF with analgesia, no longer feeling dizzy/weak neuro intact, able to ambulate instructions to f/u neurologist, regarding his headache management and THC tx as likely side effect profile with his repeated dosing today. Pt to be discharged in stable condition. Patient made aware of clinical impression, treatment recommendations and disposition plan, return precautions discussed (including but not limited to new or persistent/worsening symptoms, pain, fevers, or signs of infection, chest pain, respiratory distress, inability to tolerate oral intake, dehydration, syncope, or neurologic changes) . Follow up with PMD and/or neuro specialist as recommended, follow up information provided, take medications as instructed for duration of time. continue with supportive care, avoid triggers and precipitants. All questions answered to patient's satisfaction and expressed understanding and comfort with this. At the time of discharge, the patient is alert, clinically improved, tolerating po and verbalizes understanding of instructions, satisfied with the care received and felt comfortable with the plan. Patient does not suffer from an acute life-threatening medical condition at this time and is safe for outpatient follow-up. 03/20/19 23:24 Discharge - Discharge Information Problems reviewed: Yes Clinical Impression/Diagnosis: Weakness, Light-headedness, Chronic headache Condition: Stable Disposition: HOME - Admission No - Follow up/Referral Referrals: Gabriella Castillo MD [Non Staff, Medical] - Daniel Valera Jr [Non Staff, Medical] - - Patient Discharge Instructions Patient Printed Discharge Instructions: Combating Dizziness in Older Adults, DI for Sinus Headache, DI for Dizziness-Nonvertigo Additional Instructions: 1) Please follow-up with your primary care doctor in the next 1-2 days. Please call tomorrow for for any urgent issues. make sure to follow up with your neurologist Dr Castillo regarding your headache and dizziness and THC use as part of the treatment plan 2) You were given a copy of the tests performed today. Please bring the results with you and review them with your primary care doctor/neurologist. Your laboratory / results were normal 3) If you have any worsening of symptoms or any other concerns please return to the ED immediately. Return if worsening symptoms including fevers, headache, vomiting, visual or hearing disturbances, abdominal pain, chest pain, shortness of breath, syncope, dehydration, inability to take things by mouth/vomiting, altered mental status, or worsening concerning symptoms. 4) Please continue taking your home medications as directed. Stay well hydrated and rest adequately. Make an appointment. If you cannot follow-up with your primary care doctor please return to the ED - Post Discharge Activity
[2019-03-20 22:11] VITALS: BMI 30.4
[2019-03-20 22:19] VITALS: BP 118/75; PULSE 73
[2019-03-20] MEDS ORDERED: SODIUM CHLORIDE 1,000 ML IV STA (22:20)
[2019-03-20 22:21] VITALS: TEMP 97.3
[2019-03-20] MEDS ORDERED: METOCLOPRAMIDE HCL INJECTION 10 MG/2 ML VIAL IVPUSH ONE (22:21)
[2019-03-20] MEDS ORDERED: ACETAMINOPHEN 1000 MG/100 ML VIAL (NON FORMULARY) IVPB ONE (22:21)
[2019-03-20] MEDS ORDERED: ACETAMINOPHEN INJECTION 100 ML IVPB ONE (22:34)
[2019-03-20] MEDS ORDERED: METOCLOPRAMIDE HCL INJECTION 10 MG/2 ML VIAL ONE (22:34)
[2019-03-20 23:00] LABS: BASO % 2.4 % (0-2.0); EOS % 3.3 % (0-4.5); HEMATOCRIT 49.2 % (35.4-49); LYMPH % 39.2 % (8-40); MCH 28.1 pg (25.7-33.7); MCHC 32.5 g/dl (32.0-35.9); MEAN CELL VOLUME 86.4 fl (80-96); MEAN PLT VOLUME 8.5 fl (7.5-11.1); MONO % 10.2 % (3.8-10.2); NEUT % 44.9 % (42.8-82.8); PLATELET COUNT 275 K/MM3 (134-434); RBC 5.69 M/mm3 (4.00-5.60); RDW 13.2 % (11.9-15.9); WHITE BLOOD COUNT 6.1 K/mm3 (4.0-10.8)
[2019-03-20 23:05] LABS: ACTIVATED PTT 23.1 SECONDS (25.2-36.5); ALBUMIN 4.3 g/dl (3.4-5.0); BILIRUBIN,TOTAL 0.4 mg/dl (0.2-1); CALCIUM 9.2 mg/dl (8.5-10); CREATININE 1.1 mg/dl (0.55-1.3); POTASSIUM 3.3 mmol/L (3.5-5.1)
[2019-03-20 23:09] LABS: INR 1.06 (0.82-1.09); PROTHROMBIN TIME (PATIENT) 11.8 SEC (10.2-13.0)
[2019-03-20] MEDS ORDERED: POTASSIUM CHLORIDE TABS 20 MEQ TABLET.ER (FP) PO ONE ×2 (23:13→23:14)
--- NOTE | 2019-03-21 11:03 | EKG ---
Test Reason : Blood Pressure : / mmHG Vent. Rate : 060 BPM Atrial Rate : 060 BPM P-R Int : 206 ms QRS Dur : 084 ms QT Int : 426 ms P-R-T Axes : 038 006 033 degrees QTc Int : 426 ms NORMAL SINUS RHYTHM ST ELEVATION, CONSIDER EARLY REPOLARIZATION, PERICARDITIS, OR INJURY ABNORMAL ECG WHEN COMPARED WITH ECG OF 04-JAN-2018 02:40, ST ELEVATION NOW PRESENT IN LATERAL LEADS NONSPECIFIC T WAVE ABNORMALITY NO LONGER EVIDENT IN ANTERIOR LEADS Confirmed by MARCELLE ARREOLA MD ([id number]) on 03/21/2019 11:03:01 AM Referred By: MALOU MARIANO Confirmed By:MARCELLE ARREOLA MD
== END 2019-03-20 23:35 | disposition home or self-care (01) ==
LOC: FER 22:05
PROC: 3E033NZ Introduction of Analgesics, Hypnotics, Sedatives into Peripheral Vein, Percutaneous Approach (ICD-10-PCS; principal; 2019-03-20)
PROC: 3E033GC Introduction of Other Therapeutic Substance into Peripheral Vein, Percutaneous Approach (ICD-10-PCS; 2019-03-20)
PROC: 3E0337Z Introduction of Electrolytic and Water Balance Substance into Peripheral Vein, Percutaneous Approach (ICD-10-PCS; 2019-03-20)
DX: R53.1 Weakness (principal); R42 Dizziness and giddiness; R51 Headache; G89.29 Other chronic pain
CPT/HCPCS: 36415; 80053; 83735; 84484; 85025; 85610; 85730; 93005; 99283-25; J0131; J7030

== ENCOUNTER 2021-12-19 19:23 | Emergency (ER) | payer OTHER, BC ==
[2021-12-19 19:43] VITALS: BP 153/83; PULSE 73; RESP 18; TEMP 98.4; BMI 26.4
== END 2021-12-19 20:26 | disposition home or self-care (01) ==
LOC: FER 19:23
DX: K59.00 Constipation, unspecified (principal)
CPT/HCPCS: 74019-TC-FY; 99283-25

== ENCOUNTER 2022-03-04 14:40 | Emergency (ER) | payer OTHER, BC ==
[2022-03-04 15:04] VITALS: BP 141/83; PULSE 78; RESP 18; TEMP 98; BMI 26.9
[2022-03-04 16:10] LABS: HEMATOCRIT 46.2 % (35.4-49); HEMOGLOBIN 15.7 G/dL (11.7-16.9); MCH 28.4 pg (25.7-33.7); MCHC 33.9 g/dl (32.0-35.9); MEAN CELL VOLUME 83.9 fl (80-96); MEAN PLT VOLUME 8.1 fl (7.5-11.1); PLATELET COUNT 263.2 10^3/uL (134-434); RBC 5.51 10^6/uL (4.00-5.60); RDW 14.8 % (11.9-15.9); WHITE BLOOD COUNT 6.9 10^3/uL (4.0-10.8)
[2022-03-04 16:20] LABS: ALBUMIN 4.6 g/dl (3.4-5.0); BILIRUBIN,TOTAL 0.8 mg/dl (0.2-1); CALCIUM 9.6 mg/dl (8.5-10); CREATININE 1.1 mg/dl (0.55-1.3); TOT PROT 7.8 g/dl (6.4-8.2)
[2022-03-04 18:07] LABS: PLATELET ESTIMATE ADEQUATE
== END 2022-03-04 18:55 | disposition home or self-care (01) ==
LOC: FER 14:40
DX: K40.90 Unilateral inguinal hernia, without obstruction or gangrene, not specified as recurrent (principal); K42.9 Umbilical hernia without obstruction or gangrene; R19.5 Other fecal abnormalities
CPT/HCPCS: 36415; 71046-TC-FY; 74176-TC; 76705-TC; 80053; 83690; 84484; 85027; 93005; 93010; 99285-25